=== PATIENT | male | born 1965 | race Caucasian/White ===

== ENCOUNTER → 2019-12-23 11:00 | Outpatient (BNVA) | payer SELFPAY | PROVIDERS: Family Provider Nurse Practitioner Family; PCP Nurse Practitioner Family; Visit Provider Nurse Practitioner Family | DX: R05 Cough (principal) | CPT/HCPCS: 87635 ==

== ENCOUNTER 2020-09-29 16:48 | Inpatient (IN) | payer SELFPAY ==
[2020-09-29] VITALS (36 sets, daily range): BP systolic 168–207; BP diastolic 96–117; PULSE 85–110; RESP 16–33; TEMP 36.5; O2SAT 98–100; BMI 37.7
--- NOTE | 2020-09-29 17:30 | XR_ITS ---
WS: [id number] Exam: XR chest 1V portable [id number] Date/Time of Exam: 09/29/2020 5:54 PM Reason For Exam: dyspnea. Looks CHF. Comparison 12/18/2018. The heart is enlarged. Pulmonary vascularity slightly increased. Small right pleural effusion. No con solidating infiltrates are seen. The lungs are fully expanded. The mediastinum and osseous thorax are unremarkable. XR/XR chest 1V portable [id number] IMPRESSION: 1. Cardiac enlargement with slightly increased pulmonary vascularity and small right pleural effusion.
--- NOTE | 2020-09-29 17:32 | ECG_ITS ---
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
--- NOTE | 2020-09-29 17:44 | PC.PHAR ---
PT STATES HE ONLY TAKES IBUPROFEN,MYLANTA,TUMS AND TYLENOL PRN-PT STATES HE WAS SUPPOSE TO BE TAKING OTHER MEDICATIONS BUT HASNT TAKEN THEM FOR A YEAR-MEDICATIONS HE HASNT TAKEN FOR A YEAR-AMBIEN 10MG,CLONIDINE 0.1MG,METOPROLOL 50MG,HCTZ 25MG,AMLODIPINE 10MG,PRILOSEC 40MG,TRAZODONE 50MG, DICLOFENAC 75MG, FLEXERIL 10MG, CARAFATE 10ML, METHOTREXATE
[2020-09-29 18:10] LABS: Basophils % 0.3 %; Eosinophils # 0.1 10^3/uL (0.0-0.8); Eosinophils % 0.7 %; Hematocrit 29.2 % (42.0-52.0); Hemoglobin 7.8 g/dL (11.7-16.6); Lymphocytes # 1.5 10^3/uL (0.8-4.8); Lymphocytes % 15.2 %; Mean Corpuscular HGB Conc 26.7 g/dL (30.0-36.0); Mean Corpuscular Hemoglobin 19.1 pg (28.0-34.0); Mean Corpuscular Volume 71.4 fL (80-94); Mean Platelet Volume 9.1 fL (7.4-10.4); Monocytes # 0.9 10^3/uL (0.2-0.9); Neutrophils # 7.13 10^3/uL (1.8-7.7); Neutrophils % 74.5 %; Nucleated Red Blood Cells % 0 %; Platelet Count 363 10^3/cmm (130-400); Red Blood Count 4.09 10^6/uL (4.1-5.3); Red Cell Distribution Width 19.9 % (12.1-15.1); White Blood Count 9.6 10^3/uL (4.0-10.0)
[2020-09-29] MEDS: FUROsemide 10 mg/mL SDV 4mL 40 MG IVP (18:12)
--- NOTE | 2020-09-29 18:23 | PC.NURSE ---
EKG done at 1749 and shown to ER doctor
--- NOTE | 2020-09-29 18:27 | PC.NURSE ---
Voided-700cc , pale yellow
[2020-09-29 18:38] LABS: Troponin(5th) Baseline 45 ng/L (0-15)
[2020-09-29 18:45] LABS: Alanine Aminotransferase 28 U/L (0-41); Albumin Level 3.2 g/dL (3.5-5.2); Alkaline Phosphatase 279 IU/L (40-130); Anion Gap 9.9 (5-19); Aspartate Amino Transferase 23 U/L (0-40); Blood Urea Nitrogen 26 mg/dL (6-20); Carbon Dioxide 25 mmol/L (22-29); Chloride 107 mmol/L (98-107); Globulin 3.2 g/dL (1.3-4.6); Glomerular Filtration Rate 63.3 mL/min (90-130); Glucose 81 mg/dL (65-115); NT Pro B Type Natriuretic Pept 6611 pg/mL (0-125); Osmolality Calculated 288 mOsm/kg (285-295); Potassium 4.9 mmol/L (3.5-5.1); Sodium 137 mmol/L (136-145); Total Bilirubin 0.4 mg/dL (0.15-1.2); Total Protein 6.4 g/dL (6.6-8.7)
--- NOTE | 2020-09-29 18:45 | PC.NURSE ---
Voided 300 ml
[2020-09-29 19:09] LABS: Add Urine Microscopic? NO
[2020-09-29 19:12] LABS: Bilirubin Urine Neg (Negative); Blood Urine Neg (Negative); Glucose Urine UA Norm (Normal); Ketones Urine Negative (Negative); Leukocyte Esterase Urine Negative (Negative); Nitrate Urine Negative (Negative); Protein Urine Neg (Negative); Sulfosalicylic Acid Urine Negative (Negative); Urine Appearance Clear (CLEAR); Urine Color Straw (Yellow); Urobilinogen Urine Norm (Negative); pH Urine 8 (5-7)
--- NOTE | 2020-09-29 19:18 | P.HP_ITS ---
Providers/Chief Complaint Primary Care Provider: Myrna Hernandez NP Chief Complaint: Abd pain/swelling History of Present Illness Ty Mejia is a 55 year old male who has history of esophageal cancer status post esophagectomy 2018 and esophageal stent placement for dysphagia 2019 presented today with chief complaint of 3-day history of shortness of breath and weight gain. Patient is stating that start experiencing orthopnea, PND, shortness of breath and weight gain in the last 1 week and recently in the last 3 days it has gotten worse. He is denying chest pain, fever, nausea, vomiting. No previous history of coronary disease, [place], stroke or PE however he is endorsing history of esophageal cancer. He still endorsing gastritis/gastric ulcers but has not noticed active bleeding. He is very upset and was not very cooperative during my evaluation however able to give me above HPI. He was upset because he has not eaten since 4 PM and he is not able to tolerate bread which we were offering in the ER. He is denying IV drug abuse, active smoking or alcohol abuse. Diagnostics in the ER revealed hypertension, CHF, BNP 6000, negative delta troponin, no active chest pain, EKG did not show ischemic or infarctive changes, I have requested drug screen Review of Systems 2 Const: Reports: body aches, change in weight, fatigue and malaise; Denies: fever(s) or chills Eyes: Denies: change in vision ENMT: Denies: throat pain Card: Reports: edema, swelling of feet/ankles, dyspnea on exertion and orthopnea; Denies: chest pain Resp: Reports: dyspnea GI: Denies: abdominal pain : Denies: flank pain Musc: Denies: neck pain Skin/Breast: Reports: lesions; Denies: rash Neuro: Denies: headache(s) Psych: Denies: anxiety Endo: Denies: polyuria Petar/Lymph: Denies: easy bruising All/Imm: Denies: urticaria Medications/Allergies Home Medications Medication Instructions Recorded Confirmed Last Taken Type Mylanta See Rx Instructions .ROUTE .COMPLEX 09/29/20 09/29/20 Unknown History Tums See Rx Instructions .ROUTE .COMPLEX 09/29/20 09/29/20 Unknown History acetaminophen [Tylenol Extra 1,000 - 1,500 mg PO PRN 09/29/20 09/29/20 Unknown History Strength] ibuprofen 400 - 800 mg PO PRN 09/29/20 09/29/20 Unknown History Allergies Allergy/AdvReac Type Severity Reaction Status Date / Time Penicillins Allergy Unknown Verified 09/29/20 17:41 PFSH Acute PFSH: Medical History Esophageal cancer GERD (gastroesophageal reflux disease) Hypertension Substance abuse Surgical History H/O esophagectomy History of orchiectomy Family History Father Hypertension Social History Smoking and tobacco status: former smoker Alcohol intake: never Substance/Drug Use: former Housing: House Vitals/I&O/Wt Last Vital Signs Temp 97.7 F 09/29/20 16:54 Pulse 91 09/29/20 18:05 Resp 25 H 09/29/20 18:05 BP 178/105 09/29/20 18:05 Pulse Ox 100 09/29/20 18:05 Weight last 48 hrs Weight 129.727 kg Physical Exam Narrative: EXAM NARRATIVE: Middle-age male very irritable because he is hungry and does not want to eat ham and cheese sandwich in the ER I offered him cheese stick, pudding & grape juice as well S1, S2 active signs of heart failure, bilateral lower extremity edema 2+ Venous stasis dermatitis No acute respiratory distress saturating well on room air Bilateral breath sounds without significant crackles wheezing or stridor Abdomen distended, bloated, nontender EOMI, PERRLA No neurological deficit Irritable mood Data : 09/29/20 18:00 09/29/20 18:00 A&P Assessment and plan (1) New onset of congestive heart failure: New onset CHF Clinical signs of fluid overload, with history of orthopnea PND shortness of breath and weight gain High BNP, no ischemic or infarctive changes currently chest pain-free I would request drug screen level He has hypertensive urgency in the ER does not take any medications, my suspicion is high for nonischemic cardiomyopathy, negative delta troponin noted Depending upon his ejection fraction further plan of care will be decided whether he would benefit from an angiogram or not For now I would use Lasix 40 mg IV, request echo check TSH and drug screen Status: Acute (2) Microcytic anemia: Acute microcytic anemia, will request iron panel Patient is denying active bleeding however endorses gastritis/gastric ulcers I would continue him on Protonix avoid DVT prophylaxis with anticoagulating agent would use SCDs If his hemoglobin drops below 7 will transfuse, monitor for now Status: Acute Additional A&P Information Esophageal cancer status post esophagectomy and esophageal stent: Tolerates regular diet other than bread and steak Cardiac diet/mechanical soft DVT prophylaxis: SCDs avoid anticoagulation due to anemia Full code Attestations Medical Necessity Statement*: Anticipating discharge in less than 48 hours currently need IV diuresis for new onset CHF and echo in the morning Time Spent in Patient Care: (>than 50% of time spent in counselling and/or direct pt care on unit) . 35mins Coding Level of Care Code Acute English Composition Instructor for Naima Saha Diagnoses New onset of congestive heart failure I50.9 Microcytic anemia D50.9
--- NOTE | 2020-09-29 19:27 | ED_ITS ---
HPI - SOB/Dyspnea General: Chief Complaint: General Medical Stated Complaint: Abd pain/swelling Time Seen by Provider: 09/29/20 17:06 History of Present Illness: HPI Narrative: The patient is a 55-year-old male who comes to the ER complaining of shortness of breath and swelling. He says he has recently over the past few weeks gained 50 pounds. The swelling started in his legs and worked up to his thighs and belly and now he says his arms are swelling as well. He has to sleep upright. Satting 99% on room air in no respiratory distress. No previous history of congestive heart failure. He has a list of medications he has not taken for 1 year which are mostly to control his blood pressure, and GERD. 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 He was transferred to [place] where he had surgery to have them reattached. This gives him chronic GERD and he takes [id number] medications for this. This problem is unrelated to his new onset CHF he appears to be having. Denies chest pain MD elicited complaint: shortness of breath Severity: moderate Exacerbating factors: lying flat Relieving factors: nothing Associated symptoms: Reports no associated symptoms; Deny abdominal pain, chest pain, dizziness, extremity pain, orthopnea, palpitations or polyuria Review of Systems General: Reports: 10 or more systems reviewed and unremarkable except in HPI and below Const: Denies: fatigue Eyes: Denies: change in vision, blurry vision or eye redness ENMT: Denies: throat pain, swelling of lips/tongue, ear or mastoid pain or nasal congestion Card: Reports: edema and swelling of feet/ankles; Denies: chest pain, palpitations, irregular heart rhythm, dyspnea on exertion or orthopnea Resp: Denies: dyspnea, productive cough or non-productive cough GI: Denies: abdominal pain, diarrhea or GI cramping : Denies: flank pain, urinary frequency or urinary urgency Musc: Denies: neck pain, back pain, extremity pain, joint pain, joint redness, limited range of motion or muscle weakness Skin/Breast: Denies: rash, pruritus, erythema, skin pain or skin tenderness Neuro: Denies: headache(s), numbness in extremities, weakness in extremities, sensory changes, difficulty walking, dizziness, confusion or Slurred speech present Psych: Denies: anxiety or depression Endo: Denies: polyuria All/Imm: Denies: urticaria, throat swelling or tongue swelling PFSH ED PFSH: Medical History (Updated 09/29/20 @ 19:30 by Jimmy Flanagan MD) Esophageal cancer GERD (gastroesophageal reflux disease) Hypertension Surgical History (Updated 09/29/20 @ 19:20 by Penelope Dobbs MD) H/O esophagectomy History of orchiectomy Family History (Updated 09/29/20 @ 19:31 by Penelope Dobbs MD) Father Hypertension Physical Exam Const: COMMON NORMALS: no acute distress, average body habitus, patient oriented x3, no limitations, healthy appearing, alert and well nourished GENERAL APPEARANCE: cooperative, comfortable, well kempt and well developed ORIENTATION/CONSCIOUSNESS: Yes awake, Yes oriented to person, Yes oriented to place and Yes oriented to time HENMT: COMMON NORMALS: normocephalic, external ears normal and Normal external nose present HEAD & SCALP: normal to inspection and normocephalic NOSE: Normal external nose present EXTERNAL EAR: Yes external ears normal MOUTH: Normal oral and palatal mucosa present THROAT: posterior oropharynx normal Eye: COMMON NORMALS: Equal, round and reactive pupils present and EOMs intact bilaterally GENERAL EYE: appearance normal, both eyes and all related structures PUPIL: Yes Equal, round and reactive pupils present Neck/C-Spine: COMMON NORMALS: full ROM, no lymphadenopathy, no meningeal signs and no JVD GENERAL: Yes normal visual inspection Lymph: LYMPHATIC: no lymphadenopathy noted Chest: COMMONS NORMALS: normal inspection of the chest and normal palpation of entire chest wall Resp: COMMON NORMALS: normal respiratory effort, No retractions, No use of accessory muscles, clear to auscultation bilaterally and percussion normal EFFORT & INSPECTION: Yes able to speak in complete sentences AUSCULTATION: clear to auscultation bilaterally PERCUSSION: percussion normal Cardio: COMMON NORMALS: no JVD, regular rate, regular rhythm, S1 normal heart sound present, S2 normal heart sound present and Peripheral pulses 2+ throughout RATE: regular rate RHYTHM: regular rhythm HEART SOUNDS: S1 normal heart sound present and S2 normal heart sound present PERIPHERAL PULSES: Peripheral pulses 2+ throughout GI: COMMON NORMALS: Soft to palpation, non-tender and no masses INSPECTION: Yes abdominal distension PALPATION: Yes Soft to palpation OTHER: He has abdominal distention and peripheral edema as well likely related to CHF. : COMMON NORMALS: Yes no CVA tenderness BLADDER/KIDNEY EXAM: Yes no CVA tenderness Back/Pelvis: COMMON NORMALS: no CVA tenderness, thoracic and lumbar spine normal to inspection, no thoracic nor lumbar tenderness and thoraco-lumbar ROM normal Extremity: COMMON NORMALS: full ROM, capillary refill normal and no joint enlargement GENERAL: Yes normal exam except as noted OTHER: He has 2-3+ pitting edema to his lower extremities. Abdominal distention. Neuro: COMMON NORMALS: patient oriented x3, CN's II-XII intact bilaterally, moves all extremities, no focal motor deficits, no sensory deficits noted and gait normal SENSORIUM/ORIENTATION: Yes alert, Yes oriented to person, Yes oriented to place and Yes oriented to time MENINGEAL SIGNS: Yes no meningeal signs Psych: COMMON NORMALS: mental status grossly normal, Normal thought process present, cooperative, normal affect and speech normal APPEARANCE: Yes well kempt ATTITUDE: Yes calm SPEECH: Yes normal speech THOUGHT PROCESS: Normal thought process present Skin: COMMON NORMALS: no rashes or lesions noted GENERAL SKIN EXAM: no kirk hes or lesions noted Course Vital Signs: Vital signs: Vital Signs Temperature 97.7 F 09/29/20 16:54 Pulse Rate 91 09/29/20 18:05 Respiratory Rate 25 H 09/29/20 18:05 Blood Pressure 178/105 09/29/20 18:05 Pulse Oximetry 100 09/29/20 18:05 MDM - SOB/Dyspnea MDM Narrative: Medical decision making narrative: The patient is a 55-year-old female with likely new onset CHF. He has gained 50 pounds in the past few weeks. He was given IV Lasix. Discussed with Dr. Dobbs who accepts for care to the cardiac stepdown unit. He also has a hemoglobin of 7.8. Most recently 2 years ago he had a normal hemoglobin however now it is low for an unknown reason. He denies any symptoms of bleeding. He brought with him a large list of medications which mostly show blood pressure and GERD control which he has not taken for 1 year. Lab Data: Labs: Lab Results 09/29/20 09/29/20 09/29/20 Range/Units 18:00 18:00 18:00 WBC 9.6 (4.0-10.0) 10^3/ uL RBC 4.09 L (4.1-5.3) 10^6/u L Hgb 7.8 L (11.7-16.6) g/dL Hct 29.2 L (42.0-52.0) % MCV 71.4 L (80-94) fL MCH 19.1 L (28.0-34.0) pg MCHC 26.7 L (30.0-36.0) g/dL RDW 19.9 H (12.1-15.1) % Plt Count 363 (130-400) 10^3/c mm MPV 9.1 (7.4-10.4) fL Neut % (Auto) 74.5 % Lymph % (Auto) 15.2 % [place] % (Auto) 9.0 % Eos % (Auto) 0.7 % Baso % (Auto) 0.3 % Neut # (Auto) 7.13 (1.8-7.7) 10^3/u L Lymph # (Auto) 1.5 (0.8-4.8) 10^3/u L [place] # (Auto) 0.9 (0.2-0.9) 10^3/u L Eos # (Auto) 0.1 (0.0-0.8) 10^3/u L Baso # (Auto) 0.0 (0.0-0.1) 10^3/u L Nucleated RBC % (a uto) 0 % Nucleated RBCs # 0.0 /100WBC Sodium 137 (136-145) mmol/L Potassium 4.9 (3.5-5.1) mmol/L Chloride 107 (98-107) mmol/L Carbon Dioxide 25 (22-29) mmol/L Anion Gap 9.9 (5-19) BUN 26 H (6-20) mg/dL Creatinine 1.2 (0.7-1.2) mg/dL GFR Calculation 63.3 L (90-130) mL/min Glucose 81 (65-115) mg/dL Calculated Osmolal ity 288 (285-295) mOsm/k g Calcium 8.0 L (8.5-10.5) mg/dL Total Bilirubin 0.4 (0.15-1.2) mg/dL AST 23 (0-40) U/L ALT 28 (0-41) U/L Alkaline Phosphata se 279 H (40-130) IU/L Troponin T Baselin e 45 H (0-15) ng/L NT-Pro-B Natriuret Pep 6611 H (0-125) pg/mL Total Protein 6.4 L (6.6-8.7) g/dL Albumin 3.2 L (3.5-5.2) g/dL Globulin 3.2 (1.3-4.6) g/dL Urine Color (Yellow) Urine Appearance (CLEAR) Urine pH (5-7) Ur Specific Gravit y (1.005-1.030) Urine Protein (Negative) Urine Glucose (UA) (Normal) Urine Ketones (Negative) Urine Blood (Negative) Urine Nitrate (Negative) Urine Bilirubin (Negative) Prot Sulfosalicyli c Acd (Negative) Urine Urobilinogen (Negative) mg/dL Ur Leukocyte Meg ase (Negative) 09/29/20 Range/Units 18:30 WBC (4.0-10.0) 10^3/ uL RBC (4.1-5.3) 10^6/u L Hgb (11.7-16.6) g/dL Hct (42.0-52.0) % MCV (80-94) fL MCH (28.0-34.0) pg MCHC (30.0-36.0) g/dL RDW (12.1-15.1) % Plt Count (130-400) 10^3/c mm MPV (7.4-10.4) fL Neut % (Auto) % Lymph % (Auto) % [place] % (Auto) % Eos % (Auto) % Baso % (Auto) % Neut # (Auto) (1.8-7.7) 10^3/u L Lymph # (Auto) (0.8-4.8) 10^3/u L [place] # (Auto) (0.2-0.9) 10^3/u L Eos # (Auto) (0.0-0.8) 10^3/u L Baso # (Auto) (0.0-0.1) 10^3/u L Nucleated RBC % (a uto) % Nucleated RBCs # /100WBC Sodium (136-145) mmol/L Potassium (3.5-5.1) mmol/L Chloride (98-107) mmol/L Carbon Dioxide (22-29) mmol/L Anion Gap (5-19) BUN (6-20) mg/dL Creatinine (0.7-1.2) mg/dL GFR Calculation (90-130) mL/min Glucose (65-115) mg/dL Calculated Osmolal ity (285-295) mOsm/k g Calcium (8.5-10.5) mg/dL Total Bilirubin (0.15-1.2) mg/dL AST (0-40) U/L ALT (0-41) U/L Alkaline Phosphata se (40-130) IU/L Troponin T Baselin e (0-15) ng/L NT-Pro-B Natriuret Pep (0-125) pg/mL Total Protein (6.6-8.7) g/dL Albumin (3.5-5.2) g/dL Globulin (1.3-4.6) g/dL Urine Color Straw (Yellow) Urine Appearance Clear (CLEAR) Urine pH 8 H (5-7) Ur Specific Gravit y 1.010 (1.005-1.030) Urine Protein Neg (Negative) Urine Glucose (UA) Norm (Normal) Urine Ketones Negative (Negative) Urine Blood Neg (Negative) Urine Nitrate Negative (Negative) Urine Bilirubin Neg (Negative) Prot Sulfosalicyli c Acd Negative (Negative) Urine Urobilinogen Norm (Negative) mg/dL Ur Leukocyte Meg ase Negative (Negative) Discharge Plan Discharge Patient Disposition: Admitted As Inpatient Clinical Impression: New onset of congestive heart failure, Microcytic anemia Condition: Stable Coding Level of Care Code ED [place] for Naima Saha
--- NOTE | 2020-09-29 19:32 | ECG_ITS ---
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: : 1965 Requested By: Jimmy Flanagan Order Number: [id number] Maria T MD: YURI VIEIRA Measurements Intervals [place] Rate: 92 P: 49 LA: 162 QRS: 21 QRSD: 93 T: 91 QT: 358 QTc: 443 Interpretive Statements SINUS RHYTHM POSSIBLE LEFT ATRIAL ENLARGEMENT [-0.1mV P WAVE IN V1/V2] NONSPECIFIC T-WAVE ABNORMALITY Compared to ECG 09/29/2020 17:49:58 T-wave abnormality now present Electronically Signed On 09-29-2020 20:08:15 DIRECTOR MEDICAL ECONOMICS by YURI VIEIRA [id number]
--- NOTE | 2020-09-29 19:40 | PC.NURSE ---
EKG done at 1940 and shown to ER doctor
[2020-09-29 20:41] LABS: Troponin 5 2HR 44.67 ng/L (0-15)
[2020-09-29 20:45] LABS: Troponin 5 2HR Delta -0.33 ABS# (0-10)
--- NOTE | 2020-09-29 21:50 | PC.NURSE ---
Patient transported to room 111 bed 2 via wheelchair from the ED. Pt assisted in bed and all questions answered. Pt's only complaints at this time are about his acid reflux. Pt placed on career consultant as well as NIBP and SPO2 monitor.
[2020-09-29 22:48] LABS: Chol HDL Ratio 2.79 mg/dL (1.0-5.00); Cholesterol 106 mg/dL (0-200); HDL Cholesterol 38 mg/dL (60-100); LDL Cholesterol Calculated 58 mg/dL (50-129); LDL HDL Ratio 1.53 RATIO (0.00-3.22); Triglycerides 48 mg/dL (0-150)
[2020-09-29] MEDS: lidocaine 2% viscous 15 ML, aluminum-mag hydrox-simethicon 30 ML, sucralfate oral liq 1 GM PO (23:02)
[2020-09-29] MEDS: labetalol 5 mg/mL SDV 20mL 10 MG IVP (23:06)
[2020-09-29 23:27] LABS: Ferritin 10 ng/mL (30-400); Iron 20 ug/dL (59-158); Percent Saturation 5.4 % (20-50); Total Iron Binding Capacity 366 mcg/dl; Unsaturated Iron Binding 346 ug/dL (112-347)
--- NOTE | 2020-09-29 23:32 | ECG_ITS ---
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 Measurements Intervals [place] Rate: 85 P: 62 ND: 166 QRS: 40 QRSD: 97 T: 125 QT: 375 QTc: 447 Interpretive Statements SINUS RHYTHM NONSPECIFIC T-WAVE ABNORMALITY Compared to ECG 09/29/2020 19:36:19 No significant changes [email or web address]'); Electronically Signed On 09-30-2020 20:10:14 CORNER BLOCK CUTTER by Guerline Worley M.D. [id number]
[2020-09-29 23:39] LABS: Troponin 5 6HR 43.59 ng/L (0-15)
[2020-09-29 23:42] LABS: Troponin 5 6HR Delta -1.41 ng/L (0-12)
[2020-09-29 23:43] LABS: Amphetamines Screen Urine Negative (Negative); Barbiturates Screen Urine Negative (Negative); Benzodiazepines Screen Urine Negative (Negative); Cocaine Screen Urine Negative (Negative); Opiate Screen Urine Negative (Negative); PCP Screen Urine Negative (Negative); THC Screen Urine Negative (Negative)
[2020-09-30] VITALS (69 sets, daily range): BP systolic 150–190; BP diastolic 76–116; PULSE 75–100; RESP 17–35; TEMP 36.5–37; O2SAT 91–100
[2020-09-30 05:12] LABS: Basophils % 0.5 %; Eosinophils # 0.1 10^3/uL (0.0-0.8); Eosinophils % 1.3 %; Hematocrit 26.6 % (42.0-52.0); Hemoglobin 7.2 g/dL (11.7-16.6); Lymphocytes # 1.6 10^3/uL (0.8-4.8); Lymphocytes % 18.7 %; Mean Corpuscular HGB Conc 27.1 g/dL (30.0-36.0); Mean Corpuscular Hemoglobin 19.1 pg (28.0-34.0); Mean Corpuscular Volume 70.6 fL (80-94); Mean Platelet Volume 9.2 fL (7.4-10.4); Monocytes # 0.9 10^3/uL (0.2-0.9); Monocytes % 10.6 %; Neutrophils # 5.89 10^3/uL (1.8-7.7); Neutrophils % 68.7 %; Nucleated Red Blood Cells % 0 %; Platelet Count 355 10^3/cmm (130-400); Red Blood Count 3.77 10^6/uL (4.1-5.3); Red Cell Distribution Width 19.7 % (12.1-15.1); White Blood Count 8.6 10^3/uL (4.0-10.0)
[2020-09-30 05:33] LABS: Thyroid Stimulating Hormone 3.45 uIU/mL (0.27-4.20)
--- NOTE | 2020-09-30 06:00 | USCV_ITS ---
Ty Mejia Age: 55 Gender: M : 1965 Exam Date: 09/30/2020 06:48 Ordering Phys: Penelope Dobbs MD Technologist: Michael Villatoro [place] [facility] [place]: CHEST PAIN BP: 190 / 116 HR: 86 Rhythm: Sinus Technical Quality: Fair MEASUREMENTS (Male / Female) Normal Values 2D ECHO LV Diastolic Diameter PLAX 4.6 cm 4.2 - 5.9 / 3.9 - 5.3 cm LV Systolic Diameter PLAX 2.8 cm IVS Diastolic Thickness 1.5 cm 0.6 - 1.0 / 0.6 - 0.9 cm IVS Systolic Thickness 1.8 cm LVPW Diastolic Thickness 1.3 cm 0.6 - 1.0 / 0.6 - 0.9 cm LVPW Systolic Thickness 2.1 cm LVOT Diameter 2.5 cm LV Ejection Fraction 2D Teich 70.8 % LV Ejection Fraction MOD 2C 44.8 % LV Ejection Fraction 2C AL 46.4 % LA Diameter 5.4 cm LA Width 6.3 cm LA Height 6.4 cm RA Width 5.3 cm RA Height 6.3 cm Aorta at Sinotubular Diameter 2.8 cm M-MODE LV Diastolic Diameter MM 5.0 cm 4.2 - 5.9 / 3.9 - 5.3 cm LV Systolic Diameter MM 3.8 cm LV Ejection Fraction MM Teich 46.6 % IVS Diastolic Thickness MM 1.1 cm 0.6 - 1.0 / 0.6 - 0.9 cm IVS Systolic Thickness MM 1.5 cm LVPW Diastolic Thickness MM 1.3 cm 0.6 - 1.0 / 0.6 - 0.9 cm LVPW Systolic Thickness MM 1.5 cm RV Diastolic Diameter MM 3.2 cm Aortic Annulus Diameter 3.7 cm LA Ao Ratio MM 1.5 MV E Point Septal Separation 1.0 cm DOPPLER AV Peak Velocity 165.0 cm/s LVOT Peak Velocity 121.0 cm/s AV Area Cont Eq vti 4.2 cm squared AV Area Cont Eq pk 3.5 cm squared MV Area PHT 5.0 cm squared Mitral E to A Ratio 1.6 MV E' Velocity 73.0 cm/s Mitral E to MV E' Ratio 16.3 Mitral E to LV E' Lateral Ratio 11.7 Mitral E to LV E' Septal Ratio 27.0 TR Peak Velocity 300.3 cm/s TR Peak Gradient 36.1 mmHg TV Peak E Velocity 123.0 cm/s Right Atrial Pressure 3.0 mmHg Pulmonary Artery Systolic Pressu 39.1 mmHg PV Peak Velocity 111.0 cm/s FINDINGS Left Ventricle Normal left ventricular cavity size. Increased left ventricular wall thickness. Moderate concentric left ventricular hypertrophy. Normal left ventricular systolic function. Left ventricular ejection fraction is estimated at 55 %. There is possible septal hypokinesis. Normal diastolic function. Abnormal septal motion consistent with conduction abnormality. Right Ventricle Upper normal right ventricular size and moderately decreased right ventricular systolic function. Right ventricular systolic pressure 52 mmHg. Right Atrium Mildly increased right atrial size. Left Atrium Mildly increased left atrial size. Mitral Valve Structurally normal mitral valve. No mitral valve stenosis. Mild mitral valve regurgitation. Aortic Valve Structurally normal trileaflet aortic valve. No aortic valve stenosis. Trace aortic valve regurgitation. Tricuspid Valve Structurally normal tricuspid valve. Mild tricuspid valve regurgitation. Pulmonic Valve Structurally normal pulmonic valve. No pulmonary valve stenosis. Trace pulmonary valve regurgitation. Pericardium No pericardial effusion. Aorta Normal size aortic root and proximal ascending aorta. CONCLUSIONS 1. Normal left ventricular cavity size. Moderate concentric left ventricular hypertrophy. Normal left ventricular systolic function. Left ventricular ejection fraction is estimated at 55 %. There is possible septal hypokinesis. Normal diastolic function. 2. Upper normal right ventricular size and moderately decreased right ventricular systolic function. 3. Moderate pulmonary hypertension with pulmonary artery pressure estimated 52 mmHg. 4. Mild biatrial enlargement. 5. Mild mitral and tricuspid valve regurgitation. 6. No prior similar studies to compare. Mariela Martines MD (Electronically Signed) Final Date: 30 September 2020 12:13 S
[2020-09-30 06:49] LABS: Estmated Average Glucose 114; Hemoglobin A1C 5.6 % (4.0-6.0)
[2020-09-30] MEDS: FUROsemide 40 mg Tablet PO (08:44)
[2020-09-30] MEDS: losartan 50 mg Tablet PO (08:44)
[2020-09-30] MEDS: pantoprazole DR 40 mg Tablet PO (08:46)
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
--- NOTE | 2020-09-30 14:17 | P.PN_ITS ---
Subjective Subjective: Interval history: Patient is fairly rude to physician and staff. I had RN join me during exam. His mother is also at the bedside. They live together. She is a smoker. He reports no chest pain or pressure. He states his breathing is improved. His major complaint is not knowing what is going on . And his other main complaint is that of his leg swelling. He states that has been going on for months. Medications: Reviewed: Yes Vitals/I&O/Wt Last Vital Signs Temp 98.0 F 09/30/20 11:40 Pulse 88 09/30/20 11:40 Resp 19 H 09/30/20 11:40 BP 161/87 09/30/20 11:40 Pulse Ox 98 09/30/20 11:40 09/29/20 09/30/20 09/30/20 22:59 06:59 14:59 Intake Total 300 / 300 600 / 600 Output Total 900 / 900 360 / 360 Balance -600 / -600 240 / 240 Weight last 48 hrs Weight 129.727 kg Physical Exam Narrative: EXAM NARRATIVE: General: Appears older than his stated age. He appears to be a smoker but he denies. No acute distress. He is alert and oriented. Neck: No JVD Heart: Regular rate and rhythm no murmur auscultated. Lungs: Lungs diminished throughout worse at bases. No wheezes rales or rhonchi Abdomen patient has erythematous edema into his abdomen. It is firm but not tender to touch. Bowel sounds are normal unable to palpate organs. Extremities patient has 3+ pitting edema to his groin. patient has scrotal edema as well. Data : 09/30/20 04:52 09/29/20 18:00 Other Labs: ECHO results reviewed: CONCLUSIONS 1. Normal left ventricular cavity size. Moderate concentric left ventricular hypertrophy. Normal left ventricular systolic function. Left ventricular ejection fraction is estimated at 55 %. There is possible septal hypokinesis. Normal diastolic function. 2. Upper normal right ventricular size and moderately decreased right ventricular systolic function. 3. Moderate pulmonary hypertension with pulmonary artery pressure estimated 52 mmHg. 4. Mild biatrial enlargement. 5. Mild mitral and tricuspid valve regurgitation. 6. No prior similar studies to compare. A&P Assessment and plan (1) New onset of congestive heart failure: Pt with severe fluid overload from acute right ventricular heart failure due to pulm HTN. He is so edematous an oral diuretic will be ineffective. Switch to IV lasix for goal of 2-3 L negative daily. Status: Acute (2) Right heart failure due to pulmonary hypertension: Will need pulm consult as outpt. would recommend stablization prior to visit. Status: Acute (3) Iron deficiency anemia: Concern for history of esophageal cancer. Will give iron and referral back to [facility] for panendoscopy. Again would recommend stablization prior to work up. Status: Acute (4) Concentric left ventricular hypertrophy: control BP. Pt on losartan and lasix. Status: Acute Attestations Medical Necessity Statement*: Pt with severe right sided heart failure requiring IV diuretics and close monitorin of electrolytes as we agressively diuresis pt. Coding Level of Care Code Acute Train Planner for Naima Saha Diagnoses New onset of congestive heart failure I50.9 Right heart failure due to pulmonary hypertension I27.29; I50.810 Iron deficiency anemia D50.9 Concentric left ventricular hypertrophy I51.7
[2020-09-30 14:25] LABS: Anion Gap 10.3 (5-19); Blood Urea Nitrogen 24 mg/dL (6-20); Carbon Dioxide 25 mmol/L (22-29); Chloride 105 mmol/L (98-107); Glomerular Filtration Rate 57.7 mL/min (90-130); Glucose 98 mg/dL (65-115); Osmolality Calculated 286 mOsm/kg (285-295); Potassium 4.3 mmol/L (3.5-5.1); Sodium 136 mmol/L (136-145)
[2020-09-30] MEDS: aspirin 81 mg EC Tablet PO (15:02)
[2020-09-30] MEDS: FUROsemide 10 mg/mL SDV 4mL 40 MG IVP (18:18)
[2020-09-30] MEDS: lidocaine 2% viscous 15 ML, aluminum-mag hydrox-simethicon 30 ML, sucralfate oral liq 1 GM PO (22:10)
[2020-09-30] MEDS: trazodone 50 mg Tablet PO (23:12)
[2020-10-01] VITALS (9 sets, daily range): BP systolic 147–175; BP diastolic 81–93; PULSE 83–105; RESP 15–24; TEMP 36.6–38.1; O2SAT 96–100
[2020-10-01 05:36] LABS: Anion Gap 11.2 (5-19); Blood Urea Nitrogen 23 mg/dL (6-20); Calcium 7.4 mg/dL (8.5-10.5); Carbon Dioxide 25 mmol/L (22-29); Chloride 104 mmol/L (98-107); Glomerular Filtration Rate 63.3 mL/min (90-130); Glucose 97 mg/dL (65-115); Osmolality Calculated 286 mOsm/kg (285-295); Potassium 4.2 mmol/L (3.5-5.1); Sodium 136 mmol/L (136-145)
--- NOTE | 2020-10-01 08:43 | PC.NURSE ---
Patient stated his family has been bringing him in [employer] to eat while he has been here, and his nurse is aware he has been eating it. Educated patient that this song writer would discuss his diet with his nurse when she was available, to see if he could eat a ham sandwich as he is requesting.
[2020-10-01] MEDS: losartan 50 mg Tablet PO (09:14)
[2020-10-01] MEDS: FUROsemide 10 mg/mL SDV 4mL 40 MG IVP ×2 (09:15→18:39)
[2020-10-01] MEDS: aspirin 81 mg EC Tablet PO (09:15)
--- NOTE | 2020-10-01 10:07 | PC.CHAP ---
Pastoral Care Encounter/Spiritual Assessment Type of Contact [] Declined light rail vehicle operator visit [] Patient/Family/Request visit [] Outpatient visit [] Follow-up visit [] Physician referral [] Code/Alert [x] Routine visit [] Staff referral [] Actively dying [] Patient sleeping [] Family support [] [] Out of room [] Palliative care [] [] Receiving care in room [] Pre-surgical visit [] Trauma [] Long length of stay [] ICU visit [] Other: Relational/Emotional Strength [] Patient feels connected with others/family/visitors/staff [] Distress [] Loneliness/isolation [] Abandonment Spirituality of Patient [x] Person of Heather [] Attends Roman Catholic of their Heather [] Believes in Prayer [] Reads Bible or Scientologist materials [] There are Spiritual issues to be addressed Carpet Installer Helper Interventions [x] Prayer [x] Active listening [x] Non-anxious presence [x] Spiritual/emotional support [] Crisis/trauma care [] Spiritual counseling [] Bereavement support [] Provided bereavement packet [] Provided Bible/devotional materials [] Provided toy/stuffed animal, coloring book to patient or family member [] Provided Communion [] Anointing/Fonda [] Salvation [x] Completed spiritual assessment [] Other: Impact on Illness or Injury [] Angry [] Fearful [] Anxious [] Often cries [] Exhaustion [] Unable to work [] Unable to attend baptism [] Unable to walk/stand [] Unable to read [] Unable to drive [] Unable to eat/drink [] Unable to sleep [] Unable to be with family [] Patient intubated [] Other: Summary patient waiting for doctors visit... needs to change feeding instructions.. patient hungry Time spent with patient 10 min
--- NOTE | 2020-10-01 14:16 | P.PN_ITS ---
Subjective Subjective: Interval history: 55-year-old male with a past medical history significant for esophageal cancer status post esophagectomy with prior stent placement in 2019 presented to the emergency room with increased bilateral lower extremity edema and respiratory distress. Patient stated he was not on any medications at home. Has had cardiac workup done in [place] which per jessica nogueira was negative. Laboratory workup on arrival showed a WBC of 9.6, hemoglobin of 7.8, hematocrit of 29.2 and a platelet count of 363. Sodium 137, potassium 4.9, chloride 107, bicarb 25, BUN 26 and creatinine of 1.2. Echocardiogram performed showed normal ejection fraction of 55% with possible septal hypokinesis and upper limits of normal right ventricular size and moderately decreased right ventricular systolic function. Moderate pulmonary hypertension with pulmonary arterial pressure estimated at 52 mm Hg. Patient was started on Lasix 40 mg IV b.i.d.. In addition was also started on aspirin 81 mg daily and due to hypertension was also started on losartan 50 mg oral daily. Patient continued to have significant output. Total since admission patient was negative 7.9 L. Subjective: Patient was upset about being on a GI soft diet, stated he would like to change to regular, no prior aspiration. no complaint of chest pain, dyspnea, noted improvement in bilateral lower extremity edema however L>R. Vitals/I&O/Wt Last Vital Signs Temp 98.3 F 10/01/20 11:45 Pulse 87 10/01/20 12:18 Resp 24 H 10/01/20 12:18 BP 159/89 10/01/20 12:18 Pulse Ox 97 10/01/20 12:18 09/30/20 10/01/20 10/01/20 22:59 06:59 14:59 Intake Total 360 / 960 240 / 240 Output Total 4300 / 4660 550 / 5210 3300 / 3300 Balance -3940 / -3700 -550 / -4250 -3060 / -3060 Weight last 48 hrs Weight 129.727 kg Physical Exam Const: COMMON NORMALS: no acute distress, average body habitus, patient oriented x3, no limitations, healthy appearing, alert and well nourished GE NERAL APPEARANCE: cooperative, comfortable, well kempt and well developed ORIENTATION/CONSCIOUSNESS: Yes awake, Yes oriented to person, Yes oriented to place and Yes oriented to time HENMT: COMMON NORMALS: normocephalic, external ears normal and Normal external nose present HEAD & SCALP: normal to inspection and normocephalic NOSE: Normal external nose present EXTERNAL EAR: Yes external ears normal MOUTH: Normal oral and palatal mucosa present THROAT: posterior oropharynx normal Eye: COMMON NORMALS: Equal, round and reactive pupils present and EOMs intact bilaterally GENERAL EYE: appearance normal, both eyes and all related structures PUPIL: Yes Equal, round and reactive pupils present Neck/C-Spine: COMMON NORMALS: full ROM, no lymphadenopathy, no meningeal signs and no JVD GENERAL: Yes normal visual inspection Lymph: LYMPHATIC: no lymphadenopathy noted Chest: COMMONS NORMALS: normal inspection of the chest and normal palpation of entire chest wall Resp: COMMON NORMALS: normal respiratory effort, No retractions, No use of accessory muscles, clear to auscultation bilaterally and percussion normal EFFORT & INSPECTION: Yes able to speak in complete sentences AUSCULTATION: clear to auscultation bilaterally PERCUSSION: percussion normal Cardio: COMMON NORMALS: no JVD, regular rate, regular rhythm, S1 normal heart sound present, S2 normal heart sound present and Peripheral pulses 2+ throughout RATE: regular rate RHYTHM: regular rhythm HEART SOUNDS: S1 normal heart sound present and S2 normal heart sound present PERIPHERAL PULSES: Peripheral pulses 2+ throughout GI: COMMON NORMALS: Soft to palpation, non-tender and no masses INSPECTION: Yes abdominal distension PALPATION: Yes Soft to palpation OTHER: He has abdominal distention and peripheral edema as well likely related to CHF. : COMMON NORMALS: Yes no CVA tenderness BLADDER/KIDNEY EXAM: Yes no CVA tenderness Back/Pelvis: COMMON NORMALS: no CVA tenderness, thoracic and lumbar spine normal to inspection, no thoracic nor lumbar tenderness and thoraco-lumbar ROM normal Extremity: COMMON NORMALS: full ROM, capillary refill normal and no joint enlargement GENERAL: Yes normal exam except as noted OTHER: He has 2-3+ pitting edema to his lower extremities. Left > Right mild tenderness to palpation Neuro: COMMON NORMALS: patient oriented x3, CN's II-XII intact bilaterally, moves all extremities, no focal motor deficits, no sensory deficits noted and gait normal SENSORIUM/ORIENTATION: Yes alert, Yes oriented to person, Yes oriented to place and Yes oriented to time MENINGEAL SIGNS: Yes no meningeal signs Psych: COMMON NORMALS: mental status grossly normal, Normal thought process present, cooperative, normal affect and speech normal APPEARANCE: Yes well kempt ATTITUDE: Yes calm SPEECH: Yes normal speech THOUGHT PROCESS: Normal thought process present Skin: COMMON NORMALS: no rashes or lesions noted GENERAL SKIN EXAM: no rashes or lesions noted Urinary Catheter Management^: Matias: Cath Placed During This Visit: yes Reason for Continuing Indwelling Catheter: Accurate Measurement of Urinary Output in Critically Ill Patients Urinary Catheter Date of Insertion: 09/30/20 Urinary Catheter Time of Insertion: 16:00 Data : 09/30/20 04:52 10/01/20 04:31 A&P Assessment and plan (1) Microcytic anemia: Status: Acute (2) New onset of congestive heart failure: Status: Acute (3) Right heart failure due to pulmonary hypertension: Status: Acute (4) Concentric left ventricular hypertrophy: Status: Acute (5) Iron deficiency anemia: Status: Acute Acute right heart failure exacerbation - Continue Lasix 40 mg IV BID - ECHO - pEF with decrease RV systolic function - Daily weight - Strict I&O - Will transition to PO tomorrow . - Arrange outpatient follow up with PCP - May consider outpatient stress test. Hypertension - Losartan 50 mg PO daily - Continue to monitor Iron deficiency anemia - Hb 7.2 - monitor h/h - Will start oral replacement - Check stool for occult blood - continue asa - hold heparin DVT pox - SCDS - No heparin due to anemia Attestations Medical Necessity Statement*: Patient require further hospitalization for right heart failure exacerbation requiring IV Lasix, and anemia workup Time Spent in Patient Care: Greater than 35 minutes (>than 50% of time spent in counselling and/or direct pt care on unit) . 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
--- NOTE | 2020-10-01 14:26 | USCV_ITS ---
MejiaTy Age: 55 Gender: M : 1965 Exam Date: 10/01/2020 16:41 Ordering Phys: Ailyn Rouse MD Technologist: Melba Torres [place]am [place] [facility] [place] Indication: EDEMA HISTORY: Lower extremity edema. PROCEDURES: Venous duplex imaging was performed in bilateral lower extremities. The following venous structures were evaluated: common femoral vein, profunda vein, proximal portion of the greater saphenous vein, superficial femoral vein, and the popliteal vein. In addition, the posterior tibial and peroneal trunk were evaluated. Serial compression, augmentation maneuvers, and spectral Doppler flow evaluation were performed. FINDINGS: Normal 2-D Doppler and augmentation and compressibility throughout the lower extremity venous structures. Additional imaging through the proximal calf veins also reveals no thrombus. Limited evaluation of the greater saphenous vein is patent with no thrombus.. CONCLUSIONS No evidence of right lower extremity DVT. No evidence of left lower extremity DVT. Cory Mayes MD (Electronically Signed) Final Date: 01 October 2020 17:28 S
--- NOTE | 2020-10-01 16:56 | PC.NURSE ---
Dr. Salmeron notified of patient's elevated temp of 100.6.
[2020-10-01] MEDS: trazodone 50 mg Tablet PO (23:13)
[2020-10-02] VITALS (7 sets, daily range): BP systolic 152–167; BP diastolic 85–90; PULSE 86–102; RESP 20–23; TEMP 36.3–37.1; O2SAT 94–96
[2020-10-02] MEDS: lidocaine 2% viscous 15 ML, aluminum-mag hydrox-simethicon 30 ML, sucralfate oral liq 1 GM PO (01:24)
[2020-10-02 07:14] LABS: Alanine Aminotransferase 28 U/L (0-41); Albumin Level 2.7 g/dL (3.5-5.2); Alkaline Phosphatase 225 IU/L (40-130); Anion Gap 11.1 (5-19); Aspartate Amino Transferase 22 U/L (0-40); Blood Urea Nitrogen 20 mg/dL (6-20); Calcium 7.6 mg/dL (8.5-10.5); Carbon Dioxide 26 mmol/L (22-29); Chloride 105 mmol/L (98-107); Globulin 3.2 g/dL (1.3-4.6); Glomerular Filtration Rate 63.3 mL/min (90-130); Glucose 91 mg/dL (65-115); Magnesium 1.9 mg/dL (1.7-2.3); Osmolality Calculated 288 mOsm/kg (285-295); Potassium 4.1 mmol/L (3.5-5.1); Sodium 138 mmol/L (136-145); Total Bilirubin 0.3 mg/dL (0.15-1.2); Total Protein 5.9 g/dL (6.6-8.7)
[2020-10-02 07:39] LABS: Basophils % 0.2 %; Eosinophils # 0.2 10^3/uL (0.0-0.8); Hematocrit 26.9 % (42.0-52.0); Hemoglobin 7.2 g/dL (11.7-16.6); Lymphocytes # 1.5 10^3/uL (0.8-4.8); Lymphocytes % 18.3 %; Mean Corpuscular HGB Conc 26.8 g/dL (30.0-36.0); Mean Corpuscular Hemoglobin 18.9 pg (28.0-34.0); Mean Corpuscular Volume 70.8 fL (80-94); Mean Platelet Volume 9.7 fL (7.4-10.4); Monocytes # 0.9 10^3/uL (0.2-0.9); Monocytes % 11.5 %; Neutrophils # 5.51 10^3/uL (1.8-7.7); Neutrophils % 67.5 %; Nucleated Red Blood Cells % 0 %; Platelet Count 392 10^3/cmm (130-400); White Blood Count 8.2 10^3/uL (4.0-10.0)
[2020-10-02] MEDS: losartan 50 mg Tablet PO (09:36)
[2020-10-02] MEDS: aspirin 81 mg EC Tablet PO (09:36)
--- NOTE | 2020-10-02 10:10 | PC.NURSE ---
Pts irizarry pulled at 1015. Pt tollerated well. Will cont to monitor.
--- NOTE | 2020-10-02 10:53 | P.DS_ITS ---
Discharge Providers Date of Admission: 09/30/20 14:49 Date of Discharge: October 02, 2020 Attending Provider at Admission: Penelope Dobbs MD Attending Provider at Discharge: Ailyn Rouse Primary Care Provider: Myrna Hernandez NP Diagnoses at Discharge Discharge Diagnosis (1) Microcytic anemia: Status: Acute (2) New onset of congestive heart failure: Status: Acute (3) Right heart failure due to pulmonary hypertension: Status: Acute (4) Concentric left ventricular hypertrophy: Status: Acute (5) Iron deficiency anemia: Status: Acute Reason for Visit Reason for Visit: Abd pain/swelling Hospital Course Hospital Course 55-year-old male with a past medical history significant for esophageal cancer status post esophagectomy with prior stent placement in 2019 presented to the emergency room with increased bilateral lower extremity edema and respiratory distress. Patient stated he was not on any medications at home. Has had cardiac workup done in [place] which per patient was negative. Laboratory workup on arrival showed a WBC of 9.6, hemoglobin of 7.8, hematocrit of 29.2 and a platelet count of 363. Sodium 137, potassium 4.9, chloride 107, bicarb 25, BUN 26 and creatinine of 1.2. Echocardiogram performed showed normal ejection fraction of 55% with possible septal hypokinesis and upper limits of normal right ventricular size and moderately decreased right ventricular systolic function. Moderate pulmonary hypertension with pulmonary arterial pressure estimated at 52 mm Hg. Patient was started on Lasix 40 mg IV b.i.d.. In addition was also started on aspirin 81 mg daily and due to hypertension was also started on losartan 50 mg oral daily. Patient continued to have significant output. Total since admission patient was negative 12.9L balance. He was stable for discharge. Had requested lower dose of diuretic due to his work schedule. It advised to monitor his daily weight in symptoms. Additional only prior to discharge patient was noted have a temperature of a 100.6. This was incidental isolated time. Patient did not have any obvious signs of infection. Clinically was stable. Advised to monitor at home and return to hospital continue to recur. Patients respiratory status had returned to baseline. Did not have any chest discomfort. No nausea or vomiting. Advised to follow-up with primary care physician and Cardiology post discharge. Repeat outpatient labs were ordered. Oral dietary potassium supplementation Physical Exam Const: COMMON NORMALS: no acute distress, average body habitus, patient oriented x3, no limitations, healthy appearing, alert and well nourished GENERAL APPEARANCE: cooperative, comfortable, well kempt and well developed ORIENTATION/CONSCIOUSNESS: Yes awake, Yes oriented to person, Yes oriented to place and Yes oriented to time HENMT: COMMON NORMALS: normocephalic, external ears normal and Normal external nose present HEAD & SCALP: normal to inspection and normocephalic NOSE: Normal external nose present EXTERNAL EAR: Yes external ears normal MOUTH: Normal oral and palatal mucosa present THROAT: posterior oropharynx normal Eye: COMMON NORMALS: Equal, round and reactive pupils present and EOMs intact bilaterally GENERAL EYE: appearance normal, both eyes and all related structures PUPIL: Yes Equal, round and reactive pupils present Neck/C-Spine: COMMON NORMALS: full ROM, no lymphadenopathy, no meningeal signs and no JVD GENERAL: Yes normal visual inspection Lymph: LYMPHATIC: no lymphadenopathy noted Chest: COMMONS NORMALS: normal inspection of the chest and normal palpation of entire chest wall Resp: COMMON NORMALS: normal respiratory effort, No retractions, No use of accessory muscles, clear to auscultation bilaterally and percussion normal EFFORT & INSPECTION: Yes able to speak in complete sentences AUSCULTATION: clear to auscultation bilaterally PERCUSSION: percussion normal Cardio: COMMON NORMALS: no JVD, regular rate, regular rhythm, S1 normal heart sound present, S2 normal heart sound present and Peripheral pulses 2+ throughout RATE: regular rate RHYTHM: regular rhythm HEART SOUNDS: S1 normal heart sound present and S2 normal heart sound present PERIPHERAL PULSES: Peripheral pulses 2+ throughout GI: COMMON NORMALS: Soft to palpation, non-tender and no masses INSPECTION: Yes abdominal distension PALPATION: Yes Soft to palpation OTHER: He has abdominal distention and peripheral edema as well likely related to CHF. : COMMON NORMALS: Yes no CVA tenderness BLADDER/KIDNEY EXAM: Yes no CVA tenderness Back/Pelvis: COMMON NORMALS: no CVA tenderness, thoracic and lumbar spine normal to inspection, no thoracic nor lumbar tenderness and thoraco-lumbar ROM normal Extremity: COMMON NORMALS: full ROM, capillary refill normal and no joint enlargement GENERAL: Yes normal exam except as noted OTHER: He has 2-3+ pitting edema to his lower extremities. Left > Right mild tenderness to palpation Neuro: COMMON NORMALS: patient oriented x3, CN's II-XII intact bilaterally, moves all extremities, no focal motor deficits, no sensory deficits noted and gait normal SENSORIUM/ORIENTATION: Yes alert, Yes oriented to person, Yes oriented to place and Yes oriented to time MENINGEAL SIGNS: Yes no meningeal signs Psych: COMMON NORMALS: mental status grossly normal, Normal thought process present, cooperative, normal affect and speech normal APPEARANCE: Yes well kempt ATTITUDE: Yes calm SPEECH: Yes normal speech THOUGHT PROCESS: Normal thought process present Skin: COMMON NORMALS: no rashes or lesions noted GENERAL SKIN EXAM: no rashes or lesions noted Urinary Catheter Management^: Matias: Cath Placed During This Visit: yes, but has since been removed by the nurse Reason for Continuing Indwelling Catheter: Accurate Measurement of Urinary Output in Critically Ill Patients Urinary Catheter Date of Insertion: 09/30/20 Urinary Catheter Time of Insertion: 16:00 Date Urinary Catheter Removed: 10/02/20 Time Urinary Catheter Discontinued: 10:16 Discharge Data Data Completed and Pending: Completed Studies During Hospitalization Category Date Time Status XR chest 1V faisal ble [id number] Urgent Exams 09/29/20 17:30 Completed CV echo complete* [id number] Routine Ultrasound 09/30/20 06:00 [place] [id number] Routin e Ultrasound 10/01/20 14:26 Completed Pending at discharge Category Date Time Status Basic Metabolic P irasema AM LABS Lab 10/03/20 04:00 Ordered Immunochemical Fe tram OCB Routine Lab 10/01/20 14:34 Uncollected Labs from last 24 hours 10/02/20 10/02/20 05:00 05:00 WBC 8.2 RBC 3.80 L Hgb 7.2 L Hct 26.9 L MCV 70.8 L MCH 18.9 L MCHC 26.8 L RDW 20.0 H Plt Count 392 MPV 9.7 Neut % (Auto) 67.5 Lymph % (Auto) 18.3 [place] % (Auto) 11.5 Eos % (Auto) 2.0 Baso % (Auto) 0.2 Neut # (Auto) 5.51 Lymph # (Auto) 1.5 [place] # (Auto) 0.9 Eos # (Auto) 0.2 Baso # (Auto) 0.0 Nucleated RBC % (a uto) 0 Nucleated RBCs # 0.0 Sodium 138 Potassium 4.1 Chloride 105 Carbon Dioxide 26 Anion Gap 11.1 BUN 20 Creatinine 1.2 GFR Calculation 63.3 L Glucose 91 Calculated Osmolal ity 288 Calcium 7.6 L Magnesium 1.9 Total Bilirubin 0.3 AST 22 ALT 28 Alkaline Phosphata se 225 H Total Protein 5.9 L Albumin 2.7 L Globulin 3.2 Vitals: Last Vital Signs Temp 98.7 F 10/02/20 08:00 Pulse 86 10/02/20 08:00 Resp 20 H 10/02/20 08:00 BP 157/85 10/02/20 09:36 Pulse Ox 96 10/02/20 08:00 Discharge Plan Discharge Patient Disposition: Home Condition: Stable Prescriptions: New losartan 50 mg Tablet 50 mg PO DAILY Qty: 30 RF: 0 aspirin 81 mg Tablet,Delayed Release (Dr/Ec) 81 mg PO DAILY Qty: 30 RF: 0 Lasix 20 mg tablet 20 mg PO DAILY Qty: 30 RF: 0 ferrous sulfate 325 mg (65 mg iron) tablet 325 mg PO DAILY Qty: 30 RF: 0 Continued Tylenol Extra Strength 500 mg Tablet 1,000 - 1,500 mg PO PRN RF: 0 Mylanta See Rx Instructions .ROUTE .COMPLEX RF: 0 Tums See Rx Instructions .ROUTE .COMPLEX RF: 0 Discontinued ibuprofen 200 mg Tablet 400 - 800 mg PO PRN RF: 0 Discharge Orders: Discharge Order (Routine); Ordered 10/02/20 Ordered By: Ailyn Rouse Other Ambulatory Orders: Basic Metabolic Panel (Routine) Timeframe: 1 Week Facility: [facility] - Location: Lab - Main Lab Ordered By: Ailyn Rouse Referrals: Myrna Hernandez NP [Primary Care Provider] - 1 week (Myrna Hernandez's office will be calling to set a hospital followup to be seen in 1 week and have BMP Bloodwork done. If you don't hear from them by Sunday, please give them a call. Thank you ) Penelope Morrell MD [Physician] - 1 week ([facility] Will be calling to schedule a cardiology followup to be seen in approx. 1 week. If you don't hear from them by Sunday, please give them a call. Thank you ) Discharge Diet: Cardiac Discharge Activity: Increase activity as tolerated Patient Instructions: Iron Supplements (By mouth), Furosemide (By mouth), Aspirin (By mouth), Losartan (By mouth), Heart Failure (DC), Iron Deficiency Anemia (DC) Activity Restrictions/Additional Instructions: Monitor daily weight. Call PCP if rapidly increasing, Maintain low sodium diet. Follow up with cardiology. Arrange for outpatient sleep study. Discharge Attestations Time Spent in Discharge Care*: greater than 30 min Specific Discharge Activities: educating patient, discussing with pcp/other providers ( Cardiology), discussing with case consultant/social workers/dc planners, documenting/other paperwork and evaluating patient/reviewing data Status at Discharge: Cognitive status at discharge: cognitively intact , Behavioral status at discharge: cooperative , Functional status at discharge: independent ambulation Overall status at discharge: patient is back to baseline Quality Metrics Clinical Quality Measures During this hospital stay, did patient experience: None Coding Level of Care Code Acute Experimental Preflight Mechanic for Chg Fwd Diagnoses Microcytic anemia D50.9 New onset of congestive heart failure I50.9 Right heart failure due to pulmonary hypertension I27.29; I50.810 Concentric left ventricular hypertrophy I51.7 Iron deficiency anemia D50.9
--- NOTE | 2020-10-02 13:03 | PC.NURSE ---
Pt discharged home. Pts IV removed no redness or swelling noted. Pt discharge instructions given along with prescriptions and follow up appointments. Pt had no c/o pain or discomfort at the time of discharge. Pt transferred out via wheelchair.
== END 2020-10-02 13:00 | disposition home or self-care (01) | DRG 293 ==
LOC: ER 19:30 → CSU 09-30 06:07
PROVIDERS: Internal Medicine; Admitting Provider Internal Medicine; Emergency Provider Family Medicine; Family Provider Nurse Practitioner Family; PCP Nurse Practitioner Family; Visit Provider Hospitalist
DX: I11.0 Hypertensive heart disease with heart failure (principal); I50.9 Heart failure, unspecified; Z85.01 Personal history of malignant neoplasm of esophagus; K29.70 Gastritis, unspecified, without bleeding; K21.9 Gastro-esophageal reflux disease without esophagitis; Z90.79 Acquired absence of other genital organ(s); Z87.891 Personal history of nicotine dependence; I42.8 Other cardiomyopathies; D50.9 Iron deficiency anemia, unspecified; Z77.22 Contact with and (suspected) exposure to environmental tobacco smoke (acute) (chronic); I27.20 Pulmonary hypertension, unspecified; Z98.890 Other specified postprocedural states
CPT/HCPCS: 36415; 51702; 71045; 80048; 80053; 80061; 80306; 81003; 82728; 83036; 83540; 83550; 83735; 83880; 84443; 84484; 85025; 93005; 93306; 93970; 96374; 99285; G0378; J1940; J3490

== ENCOUNTER 2020-10-04 21:37 | Emergency (ER) | payer SELFPAY ==
[2020-10-04 22:02] VITALS: BP 187/89; PULSE 94; RESP 14; TEMP 36.8; O2SAT 100; BMI 34.0
--- NOTE | 2020-10-04 22:14 | XRR_ITS ---
PROCEDURE INFORMATION: Exam: XR Chest Exam date and time: 10/04/2020 10:31 PM Age: 55 years old Clinical indication: Shortness of breath; Prior surgery; Surgery type: Esophageal, history of esophageal cancer; Additional info: SOB TECHNIQUE: Imaging protocol: XR of the chest Views: 1 view. COMPARISON: CR XR chest 1V portable [id number] 09/29/2020 6:04 PM FINDINGS: Lungs: No significant airspace disease. Pleural spaces: Stable blunting of the costophrenic angles. Heart/Mediastinum: Cardiomegaly. Bones/joints: Degenerative change and old rib fracture. When correlating with the previous study, no significant interval changes are present. XR/XR chest 1V portable [id number] IMPRESSION: Stable appearance of the chest, not significantly changed from 09/29/20.
--- NOTE | 2020-10-04 22:14 | ECG_ITS ---
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 : 1965 Requested By: Cassandra Kumari Order Number: [id number] Reading MD: YURI VIEIRA Measurements Intervals [place] Rate: 92 P: 78 WI: 159 QRS: -4 QRSD: 94 T: 114 QT: 353 QTc: 437 Interpretive Statements SINUS RHYTHM POSSIBLE LEFT ATRIAL ENLARGEMENT [-0.1mV P WAVE IN V1/V2] MODERATE T-WAVE ABNORMALITY, CONSIDER LATERAL ISCHEMIA [-0.1+ mV T WAVE IN I/aVL/V5/V6] WARNING: DATA QUALITY MAY AFFECT INTERPRETATION Compared to ECG 09/29/2020 23:17:41 Possible ischemia now present T-wave abnormality still present Electronically Signed On 10-05-2020 19:59:44 BUSINESS DEVELOPER by YURI VIEIRA [email or web address]
--- NOTE | 2020-10-04 22:26 | ED_ITS ---
HPI - SOB/Dyspnea General: Chief Complaint: Shortness of Breath/Dyspnea Stated Complaint: difficulty breathing/cp Time Seen by Provider: 10/04/20 22:09 Source: patient Mode of arrival: ambulatory Limitations: no limitations History of Present Illness: HPI Narrative: 55-year-old male who was seen admitted here recently for congestive heart failure. Patient was started on Lasix 20 mg states that since he has been home he has had increased swelling and some shortness of breath. He denies any fever. States dyspnea is worse with exertion. Denies any vomiting or diarrhea. MD elicited complaint: shortness of breath Associated symptoms: Deny abdominal pain, chest pain, fever(s), nausea or vomiting Review of Systems Const: Denies: fever(s), chills, body aches or change in appetite Eyes: Denies: blurry vision or eye discomfort ENMT: Denies: throat pain or dental pain Card: Denies: chest pain Resp: Reports: dyspnea GI: Denies: abdominal pain, nausea, vomiting or diarrhea : Denies: dysuria Musc: Reports: extremity swelling; Denies: neck pain or back pain Skin/Breast: Denies: rash Neuro: Denies: headache(s) Psych: Denies: depression Petar/Lymph: Denies: easy bruising All/Imm: Denies: urticaria PFSH ED PFSH: Medical History Esophageal cancer GERD (gastroesophageal reflux disease) Hypertension Substance abuse Surgical History H/O esophagectomy History of orchiectomy Family History Father Hypertension Social History Smoking and tobacco status: former smoker Alcohol intake: never Housing: House Physical Exam Const: COMMON NORMALS: no acute distress, patient oriented x3 and healthy appearing HENMT: COMMON NORMALS: normocephalic and atraumatic HEAD & SCALP: normocephalic and atraumatic Eye: COMMON NORMALS: Equal, round and reactive pupils present and EOMs intact bilaterally PUPIL: Yes Equal, round and reactive pupils present Neck/C-Spine: COMMON NORMALS: full ROM and supple Chest: COMMONS NORMALS: normal inspection of the chest and normal palpation of entire chest wall Resp: COMMON NORMALS: normal respiratory effort, No retractions, No use of accessory muscles and clear to auscultation bilaterally AUSCULTATION: clear to auscultation bilaterally Cardio: COMMON NORMALS: regular rate, regular rhythm and No murmurs present (Cardio) RATE: regular rate RHYTHM: regular rhythm GI: COMMON NORMALS: Normal to inspection, nondistended, normoactive bowel sounds present, Soft to palpation, non-tender and no masses PALPATION: Yes Soft to palpation Extremity: COMMON NORMALS: normal to inspection and full ROM OTHER: 2+ lower ext edema Neuro: COMMON NORMALS: patient oriented x3, moves all extremities and no focal motor deficits Psych: COMMON NORMALS: mental status grossly normal, Normal thought process present and cooperative THOUGHT PROCESS: Normal thought process present Skin: COMMON NORMALS: no rashes or lesions noted and no wounds GENERAL SKIN EXAM: no rashes or lesions noted Course Vital Signs: Vital signs: Vital Signs Temperature 98.3 F 10/04/20 22:02 Pulse Rate 94 10/04/20 22:02 Respiratory Rate 14 10/04/20 22:02 Blood Pressure 187/89 10/04/20 22:02 Pulse Oximetry 100 10/04/20 22:02 MDM - SOB/Dyspnea MDM Narrative: Medical decision making narrative: 55-year-old presents here with edema he does feel improved after Lasix. Patient x-ray shows no fluid collection and his BNP and troponin are improved from previous. We will increase his home Lasix from 20-40. He has follow-up with cardiology on Sunday and is return if worsening. Lab Data: Labs: Lab Results 10/04/20 10/04/20 10/04/20 Range/Units 22:25 22:25 22:25 WBC 8.2 (4.0-10.0) 10^3/ uL RBC 3.75 L (4.1-5.3) 10^6/u L Hgb 7.1 L (11.7-16.6) g/dL Hct 27.1 L (42.0-52.0) % MCV 72.3 L (80-94) fL MCH 18.9 L (28.0-34.0) pg MCHC 26.2 L (30.0-36.0) g/dL RDW 19.8 H (12.1-15.1) % Plt Count 393 (130-400) 10^3/c mm MPV 9.2 (7.4-10.4) fL Neut % (Auto) 71.2 % Lymph % (Auto) 15.8 % [place] % (Auto) 9.4 % Eos % (Auto) 2.6 % Baso % (Auto) 0.4 % Neut # (Auto) 5.80 (1.8-7.7) 10^3/u L Lymph # (Auto) 1.3 (0.8-4.8) 10^3/u L [place] # (Auto) 0.8 (0.2-0.9) 10^3/u L Eos # (Auto) 0.2 (0.0-0.8) 10^3/u L Baso # (Auto) 0.0 (0.0-0.1) 10^3/u L Nucleated RBC % (a uto) 0 % Nucleated RBCs # 0.0 /100WBC Sodium 137 (136-145) mmol/L Potassium 4.7 (3.5-5.1) mmol/L Chloride 106 (98-107) mmol/L Carbon Dioxide 24 (22-29) mmol/L Anion Gap 11.7 (5-19) BUN 24 H (6-20) mg/dL Creatinine 1.1 (0.7-1.2) mg/dL GFR Calculation 70.0 L (90-130) mL/min Glucose 100 (65-115) mg/dL Calculated Osmolal ity 288 (285-295) mOsm/k g Calcium 7.8 L (8.5-10.5) mg/dL Total Bilirubin 0.2 (0.15-1.2) mg/dL AST 27 (0-40) U/L ALT 36 (0-41) U/L Alkaline Phosphata se 292 H (40-130) IU/L Troponin T Baselin e 38 H (0-15) ng/L NT-Pro-B Natriuret Pep 3464 H (0-125) pg/mL Total Protein 6.2 L (6.6-8.7) g/dL Albumin 3.2 L (3.5-5.2) g/dL Globulin 3.0 (1.3-4.6) g/dL Imaging Data^: CXR: Attestation: I personally reviewed and interpreted this imaging study as follows: My impression: no acute abnormality EKG Data^: EKG 1: Attestation: I personally reviewed and interpreted this EKG as follows: EKG Interpretation Date: 10/04/20 EKG interpretation time: 21:59 Interpretation: nsr hr [address] or t wave abnormalities qrs 94 qtc 403 Discharge Plan Discharge Patient Disposition: Home Clinical Impression: Edema of both lower legs Congestive heart failure Qualifiers: Heart failure type: unspecified Heart failure chronicity: unspecified Qualified Code(s): I50.9 - Heart failure, unspecified Condition: Stable Prescriptions: Changed Lasix 20 mg tablet 40 mg PO DAILY Qty: 30 RF: 0 No Action Tylenol Extra Strength 500 mg Tablet 1,000 - 1,500 mg PO PRN RF: 0 Mylanta See Rx Instructions .ROUTE .COMPLEX RF: 0 Tums See Rx Instructions .ROUTE .COMPLEX RF: 0 losartan 50 mg Tablet 50 mg PO DAILY Qty: 30 RF: 0 aspirin 81 mg Tablet,Delayed Release (Dr/Ec) 81 mg PO DAILY Qty: 30 RF: 0 ferrous sulfate 325 mg (65 mg iron) tablet 325 mg PO DAILY Qty: 30 RF: 0 Discharge Orders: Discharge ED (Routine); Ordered 10/04/20 Ordered By: Cassandra Kumari Referrals: Jm Cotter DO [Primary Care Provider] - 1-3 days Discharge Diet: Advance as tolerated Discharge Activity: Resume usual activity Patient Instructions: Leg Edema (ED) Coding Level of Care Code ED Golf Ball Marker for Chg Fwd Exam Comprehensive
[2020-10-04 22:34] LABS: Basophils % 0.4 %; Eosinophils # 0.2 10^3/uL (0.0-0.8); Eosinophils % 2.6 %; Hematocrit 27.1 % (42.0-52.0); Hemoglobin 7.1 g/dL (11.7-16.6); Lymphocytes # 1.3 10^3/uL (0.8-4.8); Lymphocytes % 15.8 %; Mean Corpuscular HGB Conc 26.2 g/dL (30.0-36.0); Mean Corpuscular Hemoglobin 18.9 pg (28.0-34.0); Mean Corpuscular Volume 72.3 fL (80-94); Mean Platelet Volume 9.2 fL (7.4-10.4); Monocytes # 0.8 10^3/uL (0.2-0.9); Monocytes % 9.4 %; Neutrophils % 71.2 %; Nucleated Red Blood Cells % 0 %; Platelet Count 393 10^3/cmm (130-400); Red Blood Count 3.75 10^6/uL (4.1-5.3); Red Cell Distribution Width 19.8 % (12.1-15.1); White Blood Count 8.2 10^3/uL (4.0-10.0)
[2020-10-04] MEDS: FUROsemide 10 mg/mL SDV 10mL 60 MG IVP (22:39)
[2020-10-04 22:56] LABS: Troponin(5th) Baseline 38 ng/L (0-15)
[2020-10-04 23:03] LABS: Alanine Aminotransferase 36 U/L (0-41); Albumin Level 3.2 g/dL (3.5-5.2); Alkaline Phosphatase 292 IU/L (40-130); Anion Gap 11.7 (5-19); Aspartate Amino Transferase 27 U/L (0-40); Blood Urea Nitrogen 24 mg/dL (6-20); Calcium 7.8 mg/dL (8.5-10.5); Carbon Dioxide 24 mmol/L (22-29); Chloride 106 mmol/L (98-107); Glucose 100 mg/dL (65-115); NT Pro B Type Natriuretic Pept 3464 pg/mL (0-125); Osmolality Calculated 288 mOsm/kg (285-295); Potassium 4.7 mmol/L (3.5-5.1); Sodium 137 mmol/L (136-145); Total Bilirubin 0.2 mg/dL (0.15-1.2); Total Protein 6.2 g/dL (6.6-8.7)
[2020-10-04 23:45] VITALS: BP 172/82; PULSE 92; RESP 16; O2SAT 100
== END 2020-10-04 23:38 | disposition home or self-care (01) ==
PROVIDERS: Emergency Provider Emergency Medicine; PCP Internal Medicine
DX: I11.0 Hypertensive heart disease with heart failure (principal); I50.9 Heart failure, unspecified; R60.0 Localized edema; Z79.82 Long term (current) use of aspirin; Z85.01 Personal history of malignant neoplasm of esophagus; Z87.891 Personal history of nicotine dependence
CPT/HCPCS: 71045; 80053; 83880; 84484; 85025; 93005; 96374; 99283; J1940

== ENCOUNTER 2020-10-09 08:50 | Outpatient (CLI) | payer SELFPAY ==
[2020-10-09 09:23] LABS: Anion Gap 12.2 (5-19); Blood Urea Nitrogen 21 mg/dL (6-20); Calcium 8.7 mg/dL (8.5-10.5); Carbon Dioxide 29 mmol/L (22-29); Chloride 99 mmol/L (98-107); Glucose 79 mg/dL (65-115); Osmolality Calculated 282 mOsm/kg (285-295); Potassium 5.2 mmol/L (3.5-5.1); Sodium 135 mmol/L (136-145)
== END 2020-10-09 08:51 | disposition home or self-care (01) ==
PROVIDERS: PCP Internal Medicine; Visit Provider Hospitalist
DX: I27.29 Other secondary pulmonary hypertension (principal)
CPT/HCPCS: 36415; 80048

== ENCOUNTER → 2020-10-13 16:30 | Outpatient (BNVA) | payer SELFPAY | PROVIDERS: PCP Internal Medicine; Visit Provider Internal Medicine Cardiovascular Disease | DX: I11.0 Hypertensive heart disease with heart failure (principal); I50.9 Heart failure, unspecified; I51.7 Cardiomegaly; K21.9 Gastro-esophageal reflux disease without esophagitis; I27.20 Pulmonary hypertension, unspecified; R29.818 Other symptoms and signs involving the nervous system; D50.9 Iron deficiency anemia, unspecified; I48.3 Typical atrial flutter; Z87.891 Personal history of nicotine dependence; N17.9 Acute kidney failure, unspecified | CPT/HCPCS: 80048; 83735; 83880; 85025 ==

== ENCOUNTER → 2021-01-28 10:55 | Outpatient (BNVA) | payer SELFPAY | PROVIDERS: PCP Internal Medicine; Visit Provider Internal Medicine Cardiovascular Disease | DX: I50.9 Heart failure, unspecified (principal); I48.3 Typical atrial flutter; I10 Essential (primary) hypertension; I51.7 Cardiomegaly; I27.20 Pulmonary hypertension, unspecified; N17.9 Acute kidney failure, unspecified; R29.818 Other symptoms and signs involving the nervous system; K21.9 Gastro-esophageal reflux disease without esophagitis | CPT/HCPCS: 80053; 83735; 83880; 85025 ==

== ENCOUNTER → 2021-04-22 10:05 | Outpatient (BNVA) | payer OTHER, SELFPAY | PROVIDERS: PCP Internal Medicine; Visit Provider Surgery | DX: Z20.822 Contact with and (suspected) exposure to COVID-19 (principal) | CPT/HCPCS: 87635 ==

== ENCOUNTER 2021-04-28 08:09 | Day surgery (SDC) | payer MEDICAID, SELFPAY ==
[2021-04-25 10:29] VITALS: BMI 30.3
--- NOTE | 2021-04-28 08:27 | ANES.PREANE2 ---
Pre-Anesthetic Assessment Pre-Anesthetic Assessment: Height/Weight: Height 1.85 m Weight 104.326 kg Preop Diagnosis: panendoscopy Proposed Procedure: Operation Date: 04/28/21 09:45 Proposed Procedures p EGD 92682 [id number] d50.9(Not Applicable) - Livan Weber MD s Colonoscopy(Not Applicable) - Livan Weber MD Was Beta Nga taken within 24 hours: Yes Was Clonidine taken within 24 hours: N/A Social: Social History: Tobacco (Chews) and No alcohol Exam: Pre-Anes Outpt Exam: alert, oriented x 3, clear to auscultation bilaterally and regular rate & rhythm Airway: Submandibular: WNL Cervical ROM: WNL MP: 2 Dentition: Chipped Additional comments: Very poor dentition CV/HEM: CV/HEM: Afib, Anemia, Arrythmia, CHF and HTN Comments: Pulmonary HTN GI: GI: GERD Anesthetic Plan: ASA status: 3 Anesthesia: MAC Risk of > 500 ml blood loss (7ml/kg in children): No PFSH Anesthesia PFSH: Medical History (Updated 03/08/21 @ 09:59 by Livan Weber MD) Esophageal cancer GERD (gastroesophageal reflux disease) Hypertension Pulmonary hypertension Surgical History (Updated 03/08/21 @ 10:02 by Livan Weber MD) H/O esophagectomy H/O esophagogastroduodenoscopy History of orchiectomy Family History Father Hypertension Social History Smoking and tobacco status: never smoked Alcohol intake: never Housing: House Data Anesthesia Cardiac Studies: Holter Monitor 10/29/20
[2021-04-28 08:51] VITALS: BP 166/113; PULSE 78; RESP 18; TEMP 36.5; O2SAT 100
--- NOTE | 2021-04-28 09:06 | W.PM.OPSFHP ---
Same Day Surgery H&P Indication for Procedure/HPI DATE OF PROCEDURE: April 28, 2021 CHIEF COMPLAINT/INDICATIONFOR SURGICAL PROCEDURE: anemia for panendoscopy PREOP DIAGNOSIS: panendoscopy PLANNED PROCEDRUE: Operation Date: 04/28/21 09:45 Proposed Procedures p EGD 00099 [id number] d50.9(Not Applicable) - Livan Weber MD s Colonoscopy(Not Applicable) - Livan Weber MD Medications/Allergies* Home Medications Medication Instructions Recorded Confirmed Type Mylanta See Rx Instructions .ROUTE .COMPLEX 09/29/20 04/28/21 History Tums See Rx Instructions .ROUTE .COMPLEX 09/29/20 04/28/21 History acetaminophen [Tylenol Extra 1,000 - 1,500 mg PO PRN 09/29/20 04/28/21 History Strength] Allergies/Adverse Reactions Allergy/AdvReac Type Severity Reaction Status Date / Time Penicillins Allergy Unknown Verified 04/28/21 09:06 Pertinent History/Comorbid Conditions* Medical History (Updated 03/08/21 @ 09:59 by Livan Weber MD) Esophageal cancer GERD (gastroesophageal reflux disease) Hypertension Pulmonary hypertension Surgical History (Updated 03/08/21 @ 10:02 by Livan Weber MD) H/O esophagectomy H/O esophagogastroduodenoscopy History of orchiectomy Family History (Updated 09/29/20 @ 19:31 by Penelope Dobbs MD) Hypertension Father Social History Smoking and tobacco status: never smoked Alcohol intake: never Housing: House Pertinent Exam Findings alert, oriented x 3 and regular rate & rhythm Recommendations Surgery/Procedure today Coding Level of Care Code Acute Lodging Facilities Attendant for Jayjayg Yifan
[2021-04-28] MEDS: sodium chloride 0.9% 1,000 ML 30 ML IV (09:10)
[2021-04-28 10:57] VITALS: BP 104/80; PULSE 83; RESP 16; TEMP 36.1; O2SAT 98
[2021-04-28 11:13] VITALS: BP 142/91; PULSE 84; RESP 18; O2SAT 100
--- NOTE | 2021-04-28 14:24 | ANE.PACU2 ---
Inpatient post-anesthesia follow up: Airway intact: Yes Vital signs: Temperature 97 F Pulse Rate 84 Respiratory Rate 18 Blood Pressure 142/91 Pulse Oximetry 100 Oxygen Delivery Me thod Room Air Oxygen Flow Rate 3 Fraction of Inspir ed Oxygen Hydration adequate: Yes Nausea and vomiting: No Pain level: 1 Mental status: Baseline
== END 2021-04-28 11:32 | disposition home or self-care (01) ==
PROVIDERS: PCP Internal Medicine; Visit Provider Surgery
PROC: 0DJ08ZZ Inspection of Upper Intestinal Tract, Via Natural or Artificial Opening Endoscopic (ICD-10-PCS; CPT 43235; principal; 2021-04-28 09:45)
PROC: 0DJD8ZZ Inspection of Lower Intestinal Tract, Via Natural or Artificial Opening Endoscopic (ICD-10-PCS; CPT 45378; 2021-04-28 09:45)
DX: D50.9 Iron deficiency anemia, unspecified (principal); K22.8 Other specified diseases of esophagus; K44.9 Diaphragmatic hernia without obstruction or gangrene; K20.90 Esophagitis, unspecified without bleeding; D12.4 Benign neoplasm of descending colon; D12.5 Benign neoplasm of sigmoid colon; K64.8 Other hemorrhoids; I48.91 Unspecified atrial fibrillation; I11.0 Hypertensive heart disease with heart failure; I50.9 Heart failure, unspecified; K21.9 Gastro-esophageal reflux disease without esophagitis
CPT/HCPCS: 43251; 45380; 45385; 88305; 96360; 96361; J2704; J7030

== ENCOUNTER → 2021-05-10 14:13 | Outpatient (BNVA) | payer MEDICAID, SELFPAY | PROVIDERS: PCP Internal Medicine; Visit Provider Internal Medicine Cardiovascular Disease | DX: I48.3 Typical atrial flutter (principal); I50.9 Heart failure, unspecified; I10 Essential (primary) hypertension; I51.7 Cardiomegaly; I27.20 Pulmonary hypertension, unspecified; R29.818 Other symptoms and signs involving the nervous system; K21.9 Gastro-esophageal reflux disease without esophagitis; G47.10 Hypersomnia, unspecified | CPT/HCPCS: 80053; 83735; 83880; 85025; 85610 ==

== ENCOUNTER → 2021-05-25 10:12 | Outpatient (BNVA) | payer MEDICAID, SELFPAY | PROVIDERS: PCP Internal Medicine; Visit Provider Internal Medicine Cardiovascular Disease | DX: I50.9 Heart failure, unspecified (principal); I10 Essential (primary) hypertension | CPT/HCPCS: 80048; 83735; 83880 ==

== ENCOUNTER 2021-08-25 20:00 | Outpatient (CLI) | payer MEDICAID, SELFPAY | END 2021-08-25 20:01 | disposition home or self-care (01) | LOC: SLEEP 08-26 07:03 | PROVIDERS: PCP Internal Medicine; Visit Provider Internal Medicine Cardiovascular Disease | DX: G47.33 Obstructive sleep apnea (adult) (pediatric) (principal) | CPT/HCPCS: 95811 ==

== ENCOUNTER → 2021-09-16 09:42 | Outpatient (BNVA) | payer MEDICAID, SELFPAY | PROVIDERS: PCP Internal Medicine; Visit Provider Internal Medicine Cardiovascular Disease | DX: I48.3 Typical atrial flutter (principal); I50.9 Heart failure, unspecified; I10 Essential (primary) hypertension; I27.20 Pulmonary hypertension, unspecified; I48.92 Unspecified atrial flutter; I51.7 Cardiomegaly; R29.818 Other symptoms and signs involving the nervous system; K21.9 Gastro-esophageal reflux disease without esophagitis; G47.33 Obstructive sleep apnea (adult) (pediatric) | CPT/HCPCS: 80053; 83880; 85610 ==

== ENCOUNTER → 2022-01-30 12:10 | Outpatient (BNVA) | payer MEDICAID, SELFPAY | PROVIDERS: PCP Internal Medicine; Visit Provider Internal Medicine Cardiovascular Disease | DX: I48.3 Typical atrial flutter (principal); G47.33 Obstructive sleep apnea (adult) (pediatric); I27.20 Pulmonary hypertension, unspecified; D50.9 Iron deficiency anemia, unspecified; I51.7 Cardiomegaly; N17.9 Acute kidney failure, unspecified | CPT/HCPCS: 99213 ==

== ENCOUNTER → 2022-02-09 08:52 | Outpatient (BNVA) | payer MEDICAID, SELFPAY | PROVIDERS: Visit Provider Family Medicine | DX: G47.33 Obstructive sleep apnea (adult) (pediatric) (principal); Z76.89 Persons encountering health services in other specified circumstances; K20.90 Esophagitis, unspecified without bleeding; I27.29 Other secondary pulmonary hypertension; I50.810 Right heart failure, unspecified; I27.20 Pulmonary hypertension, unspecified; I48.3 Typical atrial flutter; Z79.01 Long term (current) use of anticoagulants; I10 Essential (primary) hypertension | CPT/HCPCS: 80053; 80061; 84153; 85025; 85610 ==

== ENCOUNTER → 2022-03-02 13:06 | Outpatient (BNVA) | payer MEDICAID, SELFPAY | PROVIDERS: Visit Provider Family Medicine Adult Medicine | DX: I48.3 Typical atrial flutter (principal); I10 Essential (primary) hypertension | CPT/HCPCS: 85610 ==

== ENCOUNTER → 2022-03-17 09:31 | Outpatient (BNVA) | payer MEDICAID, SELFPAY | PROVIDERS: Visit Provider Internal Medicine Cardiovascular Disease | DX: I48.3 Typical atrial flutter (principal); Z79.01 Long term (current) use of anticoagulants; I11.0 Hypertensive heart disease with heart failure; I50.9 Heart failure, unspecified; G47.33 Obstructive sleep apnea (adult) (pediatric) | CPT/HCPCS: 85610; 99214 ==

== ENCOUNTER → 2022-03-20 09:46 | Outpatient (BNVA) | payer MEDICAID, SELFPAY | PROVIDERS: Visit Provider Surgery | DX: Z98.890 Other specified postprocedural states; Z90.49 Acquired absence of other specified parts of digestive tract | CPT/HCPCS: 99213 ==

== ENCOUNTER → 2022-03-23 09:03 | Outpatient (BNVA) | payer MEDICAID, SELFPAY | PROVIDERS: Visit Provider Family Medicine | DX: I48.91 Unspecified atrial fibrillation (principal); R11.0 Nausea | CPT/HCPCS: 80048; 85610 ==

== ENCOUNTER 2022-04-06 12:23 | Observation (INO) | payer MEDICAID, SELFPAY ==
[2022-04-06] VITALS (20 sets, daily range): BP systolic 135–181; BP diastolic 87–131; PULSE 61–107; RESP 15–29; TEMP 36.6–36.7; O2SAT 97–100
--- NOTE | 2022-04-06 12:36 | W.ED.CHESTPA ---
HPI - Chest Pain General: Chief Complaint: Chest Pain Stated Complaint: HBP Chest pains, SOB Time Seen by Provider: 04/06/22 12:36 History of Present Illness: Mr. Mejia is a 56-year-old gentleman with significant past medical history of hypertension, esophageal cancer status post treatment, LVH, CHF, A. fib on warfarin presenting to the emergency department due to uncontrolled blood pressure and shortness of breath with chest discomfort. He reports longstanding history of difficult to control blood pressure despite increases in medications and addition of medication in the outpatient setting. Lately he has had more frequent episodes of substernal chest discomfort and/or shortness of breath with decreased exertional tolerance. Denies infectious symptoms. Reports compliance with his medication regimen. No other specific changes in health, exacerbating, or alleviating factors identified. Onset (ago): day(s) Onset: during rest Pain location: substernal Severity: moderate Exacerbating factors: exertion Associated symptoms: Reports dyspnea and other Review of Systems General: Reports: 10 or more systems reviewed and unremarkable except in HPI and below Resp: Reports: dyspnea PFSH ED PFSH: Medical History Allergic rhinitis due to allergen Colon polyps Dental caries associated with enamel hypomineralization Esophagitis GERD (gastroesophageal reflux disease) Hx of esophageal malignancy Hypertension VAHE (obstructive sleep apnea) Pulmonary hypertension Surgical History H/O esophagectomy H/O esophagogastroduodenoscopy (04/28/21) Distal esophageal polyp and grade C esophagitis History of orchiectomy Status post colonoscopy (04/28/21) Family History Father Hypertension Social History Smoking and tobacco status: never smoked Alcohol intake: never Housing: House Physical Exam Const: COMMON NORMALS: alert GENERAL APPEARANCE: cooperative and well developed HENMT: COMMON NORMALS: normocephalic and atraumatic HEAD & SCALP: normocephalic and atraumatic Eye: COMMON NORMALS: conjunctivae normal CONJUNCTIVA: Yes conjunctivae normal SCLERA: sclerae normal Neck/C-Spine: COMMON NORMALS: supple GENERAL: Yes trachea midline Resp: COMMON NORMALS: normal respiratory effort and clear to auscultation bilaterally EFFORT & INSPECTION: Yes able to speak in complete sentences AUSCULTATION: clear to auscultation bilaterally Cardio: COMMON NORMALS: regular rate and regular rhythm RATE: regular rate RHYTHM: regular rhythm GI: COMMON NORMALS: Soft to palpation PALPATION: Yes Soft to palpation and No Tenderness to palpation present (GI) Extremity: GENERAL: Yes normal exam except as noted and No edema Neuro: COMMON NORMALS: moves all extremities SENSORIUM/ORIENTATION: Yes alert and No Orientation impaired Psych: COMMON NORMALS: mental status grossly normal and Normal thought process present THOUGHT PROCESS: Normal thought process present Course ED course: - Patient was seen and evaluated by me at bedside - Patient placed on cardiac monitors, IV access obtained - Initial evaluation notable for exam as above - Labs and xrays personally interpreted by me. EKG shows atrial fibrillation with controlled ventricular response. No STEMI. - Labs notable for no leukocytosis, normal hemoglobin. Metabolic panel with mild hyponatremia. Delta troponin negative. BNP elevated. - Imaging notable for no lobar consolidation or pneumothorax - Upon serial reexamination after treatment the patient was improved after 20 mg diltiazem and 20 mg labetalol IV - Discussed with cardiology, recommend switching metoprolol to labetalol 100 3 times daily and observe overnight. - Based on patient history, evaluation, and testing as interpreted the most likely cause of the patient's condition is hypertensive urgency - The results of ED evaluation were discussed with the patient including plan for admission due to requirement for level of care not available if discharged to prevent significant worsening/deterioration. - Admitting service was contacted and Dr Small with the hospitalist service agreed to admit the patient - Patient was admitted without further deterioration or significant events. Note: Click bubbles or prepopulated clark in note writing are used for assistance with data collection and billing and are inherently more limited than narrative and other text portions of this note. Please use narrative for additional clinical history and defer to narrative/free test for any case of contradictory information. If information appears in only free text or click bubble it should be considered present or absent as reported. Please contact note video games storywriter for clarifications of clinical information or contradictory information. MDM is a brief summary, contradictory or erroneous seeming information should be clarified and full note should be reviewed. Vital Signs: Vital signs: Vital Signs Temperature 97.7 F 04/08/22 14:38 Pulse Rate 65 04/08/22 14:38 Respiratory Rate 15 04/08/22 14:38 Blood Pressure 119/75 04/08/22 14:38 Pulse Oximetry 94 04/08/22 14:38 Oxygen Delivery Me thod 04/08/22 11:23 MDM - Chest Pain Medical Decision Making 56-year-old gentleman presenting with hypotension associated with shortness of increased frequency of chest discomfort. Discussed with cardiology and patient admitted for observation for medication change. Medical Records I reviewed the patient's medical records. Lab Data I reviewed the patient's lab results. : 04/07/22 05:14 04/07/22 05:14 Radiology Impressions Chest X-Ray 04/06/22 12:57 IMPRESSION: 1. No acute cardiopulmonary finding. 2. Cardiac enlargement unchanged. 3. Chronic interstitial changes. Laboratory Results WBC 6.6 10^3/uL (4.0-10.0) 04/06/22 13:10 RBC 4.71 10^6/uL (4.1-5.3) 04/06/22 13:10 Hgb 12.0 g/dL (11.7-16.6) 04/06/22 13:10 Hct 40.2 % (42.0-52.0) L 04/06/22 13:10 MCV 85.4 fl (80-94) 04/06/22 13:10 MCH 25.5 pg (28.0-34.0) L 04/06/22 13:10 MCHC 29.9 g/dL (30.0-36.0) L 04/06/22 13:10 RDW 16.3 % (12.1-15.1) H 04/06/22 13:10 Plt Count 290 10^3/cmm (130-400) 04/06/22 13:10 MPV 9.5 fL (7.4-10.4) 04/06/22 13:10 Neut % (Auto) 75.5 % 04/06/22 13:10 Lymph % (Auto) 15.7 % 04/06/22 13:10 Graves % (Auto) 6.1 % 04/06/22 13:10 Eos % (Auto) 2.0 % 04/06/22 13:10 Baso % (Auto) 0.5 % 04/06/22 13:10 Neut # (Auto) 4.96 10^3/uL (1.8-7.7) 04/06/22 13:10 Lymph # (Auto) 1.0 10^3/uL (0.8-4.8) 04/06/22 13:10 Graves # (Auto) 0.4 10^3/uL (0.2-0.9) 04/06/22 13:10 Eos # (Auto) 0.1 10^3/uL (0.0-0.8) 04/06/22 13:10 Baso # (Auto) 0.0 10^3/uL (0.0-0.1) 04/06/22 13:10 Nucleated RBC % (auto) 0 % 04/06/22 13:10 Nucleated RBCs # 0.0 /100WBC 04/06/22 13:10 PT 13.90 SECONDS (12.1-14.9) 04/06/22 13:10 INR 1.04 (0.8-1.2) 04/06/22 13:10 APTT 30.0 SECONDS (23.9-36.7) 04/06/22 13:10 Sodium 135 mmol/L (136-145) L 04/06/22 13:10 Potassium 4.0 mmol/L (3.5-5.1) 04/06/22 13:10 Chloride 102 mmol/L (98-107) 04/06/22 13:10 Carbon Dioxide 25 mmol/L (22-29) 04/06/22 13:10 Anion Gap 12.0 (5-19) 04/06/22 13:10 BUN 14 mg/dL (6-20) 04/06/22 13:10 Creatinine 1.2 mg/dL (0.7-1.2) 04/06/22 13:10 GFR Calculation 63.1 mL/min (90-130) L 04/06/22 13:10 Glucose 107 mg/dL (65-115) 04/06/22 13:10 Estimat Average Glucose 120 04/06/22 13:10 Hemoglobin A1c 5.8 % (4.0-6.0) 04/06/22 13:10 Calculated Osmolality 281 mOsm/kg (285-295) L 04/06/22 13:10 Calcium 8.6 mg/dL (8.5-10.5) 04/06/22 13:10 Total Bilirubin 0.4 mg/dL (0.15-1.2) 04/06/22 13:10 AST 20 U/L (0-40) 04/06/22 13:10 ALT 31 U/L (0-41) 04/06/22 13:10 Alkaline Phosphatase 158 U/L (40-130) H 04/06/22 13:10 Troponin T Baseline 35 ng/L (0-15) H 04/06/22 13:10 Troponin T 120 Minute 26.92 ng/L (0-15) H 04/06/22 15:14 Delta Troponin T -8.08 ABS# (0-10) L 04/06/22 15:14 NT-Pro-B Natriuret Pep 2530 pg/mL (0-125) H 04/06/22 13:10 NT-Pro-B Natriuret Pep 2623 pg/mL (0-125) H 04/06/22 13:10 Total Protein 6.5 g/dL (6.6-8.7) L 04/06/22 13:10 Albumin 3.5 g/dL (3.5-5.2) 04/06/22 13:10 Globulin 3.0 g/dL (1.3-4.6) 04/06/22 13:10 Triglycerides 52 mg/dL (0-150) 04/06/22 13:10 Cholesterol 152 mg/dL (0-200) 04/06/22 13:10 LDL Cholesterol, Calc 103 mg/dL (50-129) 04/06/22 13:10 HDL Cholesterol 39 mg/dL (60-100) L 04/06/22 13:10 LDL/HDL Ratio 2.64 RATIO (0.00-3.22) 04/06/22 13:10 Cholesterol/HDL Ratio 3.90 mg/dL (1.0-5.00) 04/06/22 13:10 TSH 1.76 uIU/mL (0.27-4.20) 04/06/22 13:10 Discharge Plan Discharge Patient Disposition: Placed in Observation Admit Provider: Earlene Small Clinical Impression: Hypertensive urgency, On warfarin therapy, Chest pain, Acute dyspnea Discharge Diet: Cardiac and Low Salt Discharge Activity: Resume usual activity Coding Level of Care Code ED Pot [place] for Chg Fwd Exam Comprehensive
--- NOTE | 2022-04-06 12:57 | XR_ITS ---
WS: [id number] Exam: XR chest 1V portable [id number] Date/Time of Exam: 04/06/2022 1:02 PM Reason For Exam: cp Comparison 10/04/2020. The lungs are fully expanded and clear. Chronic interstitial changes. The heart is enlarged but uncha nged in size. No pleural effusions. The mediastinum is normal in contour. At least one old right rib fracture noted. XR/XR chest 1V portable [id number] IMPRESSION: 1. No acute cardiopulmonary finding. 2. Cardiac enlargement unchanged. 3. Chronic interstitial changes.
--- NOTE | 2022-04-06 12:57 | ECG_ITS ---
[facility] Test Date: 2022-04-06 Pat Name: Ty Mejia Department: Room: Gender: Male Campaign Analyst: : 1965 Requested By: Sesar Harp Order Number: [id number] Maria T MD: Guerline Worley M.D. Measurements Intervals [place] Rate: 99 P: ME: QRS: 56 QRSD: 95 T: 71 QT: 374 QTc: 480 Interpretive Statements ATRIAL FIBRILLATION NONSPECIFIC T-WAVE ABNORMALITY ABNORMAL RHYTHM ECG Compared to ECG 10/04/2020 21:59:20 Sinus rhythm no longer present Possible ischemia no longer present T-wave abnormality still present Electronically Signed On 04-07-2022 15:35:58 CDT by Guerline Worley M.D. [email or web address]/store/[id number] f
--- NOTE | 2022-04-06 13:00 | PC.NURSE ---
PT PLACED ON CONTINUOUS NIB, SPO2, AND CM
[2022-04-06 13:17] LABS: Basophils % 0.5 %; Eosinophils # 0.1 10^3/uL (0.0-0.8); Hematocrit 40.2 % (42.0-52.0); Lymphocytes % 15.7 %; Mean Corpuscular HGB Conc 29.9 g/dL (30.0-36.0); Mean Corpuscular Hemoglobin 25.5 pg (28.0-34.0); Mean Corpuscular Volume 85.4 fl (80-94); Mean Platelet Volume 9.5 fL (7.4-10.4); Monocytes # 0.4 10^3/uL (0.2-0.9); Monocytes % 6.1 %; Neutrophils # 4.96 10^3/uL (1.8-7.7); Neutrophils % 75.5 %; Nucleated Red Blood Cells % 0 %; Platelet Count 290 10^3/cmm (130-400); Red Blood Count 4.71 10^6/uL (4.1-5.3); Red Cell Distribution Width 16.3 % (12.1-15.1); White Blood Count 6.6 10^3/uL (4.0-10.0)
[2022-04-06 13:45] LABS: Troponin(5th) Baseline 35 ng/L (0-15)
[2022-04-06 13:53] LABS: Alanine Aminotransferase 31 U/L (0-41); Albumin Level 3.5 g/dL (3.5-5.2); Alkaline Phosphatase 158 U/L (40-130); Aspartate Amino Transferase 20 U/L (0-40); Blood Urea Nitrogen 14 mg/dL (6-20); Calcium 8.6 mg/dL (8.5-10.5); Carbon Dioxide 25 mmol/L (22-29); Chloride 102 mmol/L (98-107); Glomerular Filtration Rate 63.1 mL/min (90-130); Glucose 107 mg/dL (65-115); NT Pro B Type Natriuretic Pept 2530 pg/mL (0-125); Osmolality Calculated 281 mOsm/kg (285-295); Sodium 135 mmol/L (136-145); Total Bilirubin 0.4 mg/dL (0.15-1.2); Total Protein 6.5 g/dL (6.6-8.7)
--- NOTE | 2022-04-06 13:55 | PC.PHAR ---
PT AND PTS MOTHER VERIFIED PTS MEDICATIONS-PT AND PTS MOTHER STATES THE PT TAKES LASIX 80MG DAILY FILLED 03/23/22 30D/S RX WRITTEN 03/17/22 80MG BID-PTS MOTHER STATES THE PT TAKES METOPROLOL TARTRATE 150MG QAM AND 100MG QPM FILLED ON 03/17/22 RX WRITTEN ON 03/17/22 DR. VERDUGO FOR 100MG BID-PT STATES HE TAKES MYLANTA TID AND NOT PRN-NOTES ARE MADE IN THE PHARMACY COMMENTS
[2022-04-06] MEDS: dilTIAZem 5 mg/mL SDV 5 mL 20 MG IVP (13:58)
[2022-04-06 15:45] LABS: Troponin 5 2HR 26.92 ng/L (0-15)
[2022-04-06] MEDS: labetalol 5 mg/mL SDV 20mL 20 MG IVP (15:46)
[2022-04-06 15:47] LABS: Troponin 5 2HR Delta -8.08 ABS# (0-10)
[2022-04-06 16:37] LABS: INR 1.04 (0.8-1.2)
[2022-04-06 17:08] LABS: Cholesterol 152 mg/dL (0-200); HDL Cholesterol 39 mg/dL (60-100); LDL Cholesterol Calculated 103 mg/dL (50-129); LDL HDL Ratio 2.64 RATIO (0.00-3.22); NT Pro B Type Natriuretic Pept 2623 pg/mL (0-125); Thyroid Stimulating Hormone 1.76 uIU/mL (0.27-4.20); Triglycerides 52 mg/dL (0-150)
[2022-04-06 17:34] LABS: Estmated Average Glucose 120; Hemoglobin A1C 5.8 % (4.0-6.0)
[2022-04-06] MEDS: heparin 5,000 unit/mL INJ 1 mL 5000 UNIT SUBCUT (17:35)
--- NOTE | 2022-04-06 18:04 | P.HP_ITS ---
Providers/Chief Complaint Chief Complaint: HBP Chest pains, SOB History of Present Illness Ty Mejia is a 56 year old male who is currently seeing Dr. Pal for his resistant hypertension currently on multiple antibiotic regimen with good control of his blood pressure no previous history of cardiac disease, [place], aortic dissection or renal artery disease presenting today with chief complaint of weakness, chest pain and hypertensive episode. Patient is stating that for last few weeks he has been experiencing chest pain which he describes as pressure- like sensation which radiates towards his left arm and jaw and left side of his neck associated with some numbness of his left arm, his pain would last for few seconds especially at nighttime patient is stating that he has history of esophageal cancer that was operated on 2019 since then he cannot lay flat he does get some discomfort on laying flat, tolerates regular food his EF is 55% he was given diuretics for diastolic heart failure, also has history of atrial flutter, takes Coumadin he has not received his CPAP because of denial. In the ER he was diagnosed with hypertensive emergency, he was given labetalol, no active chest pain at the time my evaluation he is eating his dinner I requested secondary hypertension work-up Added Cardene drip along labetalol requested stress test in the morning EKG changes of chronic Sent nonsignificant delta of troponin BNP 2600 Requested drug screen TSH is normal Review of Systems Const: Reports: chills, body aches and fatigue Eyes: Denies: change in vision ENMT: Denies: throat pain Card: Reports: chest pain, swelling of feet/ankles, dyspnea on exertion and orthopnea Resp: Reports: dyspnea GI: Reports: heartburn and bloating : Denies: flank pain Musc: Denies: neck pain Skin/Breast: Denies: rash Neuro: Reports: headache(s) Psych: Denies: anxiety Endo: Denies: polyuria Petar/Lymph: Denies: easy bruising All/Imm: Denies: urticaria Medications/Allergies Home Medications Medication Instructions Recorded Confirmed Last Taken Type acetaminophen 500 mg tablet 1,000 - 1,500 mg PO Q6H PRN Pain 09/29/20 04/06/22 1 Month Ago History (Tylenol Extra Strength) ~03/28/21 metoclopramide HCl 10 mg tablet 10 mg PO TIDWMEAL PRN stomach 02/24/22 04/06/22 Unknown Rx (Reglan) upset #90 tabs pantoprazole 40 mg tablet,delayed 40 mg PO BID PRN throat burning 02/24/22 04/06/22 Unknown Rx release (Protonix) #30 tabs ketotifen fumarate 0.025 % (0.035 1 drp ophthalmic (eye) BID PRN 03/16/22 04/06/22 Unknown Rx %) eye drops (Allergy Eye allergy symptoms #5 mL (ketotifen)) furosemide 80 mg tablet 80 mg PO QAM 03/17/22 04/06/22 04/05/22 History aluminum-mag hydroxide-simethicone 15 ml PO TID 04/06/22 04/06/22 Unknown History 200 mg-200 mg-20 mg/5 mL oral susp amlodipine 10 mg tablet 10 mg PO QAM 04/06/22 04/06/22 Unknown History aspirin 81 mg tablet,delayed 81 mg PO QAM 04/06/22 04/06/22 04/05/22 History release calcium carbonate 200 mg calcium 200 mg PO QID PRN Indigestion 04/06/22 04/06/22 Unknown History (500 mg) chewable tablet (Tums) diltiazem HCl 180 mg 180 mg PO QAM 04/06/22 04/06/22 04/05/22 History capsule,extended release 24 hr (Cardizem CD) loratadine 10 mg tablet 10 mg PO QAM 04/06/22 04/06/22 04/05/22 History metoprolol tartrate 100 mg tablet See Rx Instructions .Route .COMPLEX 04/06/22 04/06/22 04/05/22 History spironolactone 50 mg tablet 100 mg PO QAM High blood pressure 04/06/22 04/06/22 04/05/22 History & CHF warfarin 6 mg tablet See Rx Instructions .Route .COMPLEX 04/06/22 04/06/22 Unknown History Allergies Allergy/AdvReac Type Severity Reaction Status Date / Time Penicillins Allergy Unknown Verified 04/06/22 13:44 PFSH Acute PFSH: Medical History Allergic rhinitis due to allergen Colon polyps Dental caries associated with enamel hypomineralization Esophagitis GERD (gastroesophageal reflux disease) Hx of esophageal malignancy Hypertension VAHE (obstructive sleep apnea) Pulmonary hypertension Surgical History H/O esophagectomy H/O esophagogastroduodenoscopy (04/28/21) Distal esophageal polyp and grade C esophagitis History of orchiectomy Status post colonoscopy (04/28/21) Family History Father Hypertension Social History Smoking and tobacco status: never smoked Alcohol intake: never Housing: House Vitals/I&O/Wt Last Vital Signs Temp 97.9 F 04/06/22 12:38 Pulse 80 04/06/22 17:00 Resp 19 H 04/06/22 17:00 BP 143/101 04/06/22 17:00 Pulse Ox 100 04/06/22 17:00 O2 Del Method 04/06/22 17:00 Weight last 48 hrs Weight 107.955 kg Physical Exam Narrative: 56-year-old male Currently eating dinner No active chest pain Saturating on room air Nonfocal neuro exam Bilateral extremity 1+ edema Abdomen soft Surgical scar noted Currently hypotensive Blood pressure 140/112 No active chest pain Nonfocal neuro exam EOMI, PERRLA Systolic murmur appreciated Data : 04/06/22 13:10 04/06/22 13:10 A&P Assessment and plan (1) Hypertensive emergency: Status: Acute (2) Chest pain: Status: Acute (3) H/O esophagectomy: Status: Acute (4) Atrial fibrillation: Status: Acute (5) Nausea: Status: Acute (6) Hx of esophageal malignancy: Status: Acute (7) VAHE (obstructive sleep apnea): Status: Acute (8) Pulmonary hypertension: Status: Acute (9) Concentric left ventricular hypertrophy: Status: Acute (10) Iron deficiency anemia: Status: Acute (11) Right heart failure due to pulmonary hypertension: Status: Acute Plan Hypertensive emergency No active signs of endorgan damage however mild leakage of troponin noted EKG showing chronic changes No active chest pain or shortness of breath Considering resistant hypertension and requiring more than 3 antiplatelet regimen including Lasix he will need secondary hypertension work-up I will request drug screen, TSH, renal Doppler, echo, He might benefit from 24-hour urine VMA study For now I will add Cardene drip Add labetalol Target blood pressure reduction 15% of his MAP, goal in next 6-hour blood pressure target 130 -140/90mmhg Discontinue metoprolol and add labetalol Might need nephro consultation outpatient Diastolic CHF exacerbation No acute decompensation I will continue Lasix for hypertensive emergency History of sleep apnea, CPAP was denied by the company History of cor pulmonale Atrial flutter without RVR Continue Coumadin Esophageal cancer history Status post surgery Tolerates regular diet Full code Cardiac diet n.p.o. after midnight DVT prophylaxis Lovenox Attestations Medical Necessity Statement*: Anticipating discharge within 48 hours if blood pressure is better Time Spent in Patient Care: 45 Coding Level of Care Code Acute Countersinker Balance Screw Hole for Chg Fwd Diagnoses Hypertensive emergency I16.1 Chest pain R07.9 H/O esophagectomy Z98.890; Z90.49 Atrial fibrillation I48.91 Nausea R11.0 Hx of esophageal malignancy Z85.01 VAHE (obstructive sleep apnea) G47.33 Pulmonary hypertension I27.20 Concentric left ventricular hypertrophy I51.7 Iron deficiency anemia D50.9 Right heart failure due to pulmonary hypertension I27.29; I50.810
--- NOTE | 2022-04-06 18:06 | ECG_ITS ---
[facility] Test Date: 2022-04-06 Pat Name: Ty Mejia Department: Room: Gender: Male Club Attendant: : 1965 Requested By: Sesar Harp Order Number: [id number] Live MD: Guerline Worley M.D. Measurements Intervals [place] Rate: 70 P: [place]: QRS: 1 QRSD: 97 T: 78 QT: 430 QTc: 465 Interpretive Statements ATRIAL FIBRILLATION NONSPECIFIC T-WAVE ABNORMALITY ABNORMAL RHYTHM ECG Compared to ECG 04/06/2022 12:36:32 No significant changes Electronically Signed On 04-07-2022 15:50:43 CDT by Guerline Worley M.D. [id number]
[2022-04-06 19:08] LABS: Troponin 5 6HR 39.52 ng/L (0-15)
[2022-04-06 19:09] LABS: Troponin 5 6HR Delta 4.52 ng/L (0-12)
--- NOTE | 2022-04-06 19:36 | PC.NURSE ---
Attempted to call CSU to give report, Mali Yee advised that per Ampoule Filler, Padmini, we will hold this patient in the ED until 2100 when another nurse comes in to assist Medsurg and CSU floor. Poppy PERESU will take this patient at 2100, I advised I will call back for report
--- NOTE | 2022-04-06 21:07 | PC.NURSE ---
gave report to U Stephanie
--- NOTE | 2022-04-06 21:15 | USCV_ITS ---
Ty Mejia Age: 56 Gender: M : 1965 Exam Date: 04/07/2022 01:27 Ordering Phys: Penelope Dobbs MD Technologist: CRISTIAN Exam Location: [facility] Indication: HTN . No history of cardiac intervention per patient BP: 117 / 73 HR: 70 Rhythm: Atrial fibrillation Technical Quality: Adequate MEASUREMENTS (Male / Female) Normal Values 2D ECHO LV Diastolic Diameter PLAX 4.5 cm 4.2 - 5.9 / 3.9 - 5.3 cm LV Systolic Diameter PLAX 3.0 cm IVS Diastolic Thickness 1.8 cm 0.6 - 1.0 / 0.6 - 0.9 cm IVS Systolic Thickness 2.1 cm LVPW Diastolic Thickness 1.8 cm 0.6 - 1.0 / 0.6 - 0.9 cm LVPW Systolic Thickness 1.8 cm LVOT Diameter 2.1 cm LV Ejection Fraction 2D Teich 61.4 % LV Ejection Fraction MOD 2C 64.2 % LV Ejection Fraction 2C AL 65.2 % LA Diameter 5.8 cm LA Width 5.3 cm LA Height 7.3 cm RA Width 4.3 cm RA Height 5.8 cm Aorta at Sinotubular Diameter 2.6 cm IVC Diameter 2.4 cm M-MODE Aortic Annulus Diameter 3.1 cm LA Ao Ratio MM 1.9 MV E Point Septal Separation 0.3 cm DOPPLER AV Peak Velocity 134.0 cm/s LVOT Peak Velocity 98.0 cm/s AV Area Cont Eq vti 2.6 cm squared AV Area Cont Eq pk 2.6 cm squared MV Area PHT 4.5 cm squared MV E' Velocity 57.5 cm/s Mitral E to MV E' Ratio 12.3 Mitral E to LV E' Lateral Ratio 11.2 Mitral E to LV E' Septal Ratio 13.6 TR Peak Velocity 224.7 cm/s TR Peak Gradient 20.2 mmHg TV Peak E Velocity 70.0 cm/s Right Atrial Pressure 10.0 mmHg Pulmonary Artery Systolic Pressu 30.2 mmHg PV Peak Velocity 113.0 cm/s RV Acceleration Time 0.1 s RV Ejection Time 0.3 s RV AcT/ET 0.2 FINDINGS Left Ventricle Normal left ventricular size and systolic function, EF 60 %. No gross wall motion normalities Right Ventricle The right ventricle is normal in size and function. Right Atrium Mildly increased right atrial size. Left Atrium Moderately increased left atrial size. Mitral Valve Mild mitral valve regurgitation. Aortic Valve Trace aortic valve regurgitation. Tricuspid Valve Trace tricuspid valve regurgitation. Estimated pulmonary artery peak systolic pressure of 30 mmHg Pulmonic Valve Trace pulmonary valve regurgitation. Pericardium Normal pericardium without effusion. Aorta Normal ascending aorta dimension. IVC Dilated IVC with normal respiratory variation. CONCLUSIONS Normal left ventricular size and systolic function, EF 60 %. No gross wall motion normalities. Moderately increased left atrial size. Mildly increased right atrial size. Trace aortic valve regurgitation. Trace tricuspid valve regurgitation. Estimated pulmonary artery peak systolic pressure of 30 mmHg. Mild mitral valve regurgitation. There is no pericardial effusion. There are no intracardiac masses. Compared to the study from 09/30/2020, the PA pressure appears to be in the normal range. However because of the poor Doppler signal, this could be an underestimation Dr Guerline Worley MD FACC (Electronically Signed) Final Date: 07 April 2022 06:52 S
[2022-04-06] MEDS: labetalol 200 mg Tablet PO (21:33)
[2022-04-06] MEDS: enoxaparin 40 mg/0.4 mL Syringe SUBCUT (21:33)
[2022-04-06 22:27] LABS: Cortisol Random 3.78 ug/dL (2.47-19.5)
[2022-04-06 22:31] LABS: Amphetamines Screen Urine Positive (Negative); Barbiturates Screen Urine Negative (Negative); Benzodiazepines Screen Urine Negative (Negative); Cocaine Screen Urine Negative (Negative); Opiate Screen Urine Negative (Negative); PCP Screen Urine Negative (Negative); THC Screen Urine Negative (Negative)
[2022-04-06 23:00] LABS: Potassium, Radom Urine 70 mmol/L; Urine Random Chloride 82 mmol/L; Urine Random Sodium 114 mmol/L
--- NOTE | 2022-04-06 23:15 | PC.NURSE ---
Spoke with regarding patients BPs improved after PO labetolol. Per hold off on Cardene gtt for now.
[2022-04-07] VITALS (46 sets, daily range): BP systolic 107–149; BP diastolic 59–94; PULSE 57–91; RESP 15–29; TEMP 36.6–36.7; O2SAT 85–99
--- NOTE | 2022-04-07 | ECG_ITS ---
[facility] Test Date: 2022-04-07 Pat Name: Ty Mejia Department: Room: 276 Gender: Male Geodetic Computator: : 1965 Requested By: Penelope Dobbs Order Number: [id number] Maria T MD: Mariela Martines M.D. Interpretive Statements NAME OF STUDY: LEXISCAN SESTAMIBI STRESS TEST INDICATION: Unstable angina PROCEDURE: At the baseline, the blood pressure was 156/96 mmHg with a heart rate of 66 bpm and oxygen saturation 97%. The electrocardiogram showed atrial fibrillation, normal axis. Poor anterior R wave progression. Nonspecific T wave changes. The Lexiscan was infused over a period of 20 seconds. A total of 0.4 milligrams of Lexiscan was infused. The stress phase was continued for a total of 5 minutes. Heart rate at the end of the stress phase was 83 bpm, oxygen saturation 97% with a blood pressure of 136/72 mmHg. The EKG at the peak infusion revealed atrial fibrillation with no significant ST-T wave changes. The study was terminated due to protocol completion. Sestamibi was injected 20 seconds after the Lexiscan infusion. Blood pressure at the end of the recovery phase was 149/94 mmHg, oxygen saturation 94% with a heart rate of 75 beats per minute. CONCLUSION: 1. No significant EKG changes with the LexiScan infusion 2. No LexiScan induced chest pain or cardiac arrhythmia. 3. Normal blood pressure and heart rate response. 4. Sestamibi/sestamibi perfusion scan pending; see separate report. Electronically Signed On 04-07-2022 13:43:47 CDT by Mariela Martines M.D. [id number]
[2022-04-07] MEDS: amlodipine 10 mg Tablet PO (05:28)
[2022-04-07] MEDS: FUROsemide 40 mg Tablet 80 MG PO (05:28)
[2022-04-07] MEDS: spironolactone 25 mg Tablet 100 MG PO (05:28)
[2022-04-07] MEDS: dilTIAZem ER (24HR) 180 mg Capsule PO (05:28)
[2022-04-07 05:29] LABS: Basophils % 0.4 %; Eosinophils # 0.1 10^3/uL (0.0-0.8); Eosinophils % 1.7 %; Hematocrit 38.2 % (42.0-52.0); Hemoglobin 11.1 g/dL (11.7-16.6); Lymphocytes # 1.6 10^3/uL (0.8-4.8); Lymphocytes % 23.2 %; Mean Corpuscular HGB Conc 29.1 g/dL (30.0-36.0); Mean Corpuscular Hemoglobin 24.8 pg (28.0-34.0); Mean Corpuscular Volume 85.5 fl (80-94); Mean Platelet Volume 9.8 fL (7.4-10.4); Monocytes # 0.6 10^3/uL (0.2-0.9); Monocytes % 8.2 %; Neutrophils # 4.54 10^3/uL (1.8-7.7); Neutrophils % 66.2 %; Nucleated Red Blood Cells % 0 %; Platelet Count 279 10^3/cmm (130-400); Red Blood Count 4.47 10^6/uL (4.1-5.3); Red Cell Distribution Width 16.4 % (12.1-15.1); White Blood Count 6.9 10^3/uL (4.0-10.0)
[2022-04-07] MEDS: aspirin 81 mg EC Tablet PO (05:31)
[2022-04-07 05:49] LABS: Alanine Aminotransferase 29 U/L (0-41); Albumin Level 3.3 g/dL (3.5-5.2); Alkaline Phosphatase 142 U/L (40-130); Anion Gap 11.6 (5-19); Aspartate Amino Transferase 18 U/L (0-40); Blood Urea Nitrogen 17 mg/dL (6-20); Calcium 8.6 mg/dL (8.5-10.5); Carbon Dioxide 27 mmol/L (22-29); Chloride 105 mmol/L (98-107); Globulin 2.7 g/dL (1.3-4.6); Glomerular Filtration Rate 48.8 mL/min (90-130); Glucose 95 mg/dL (65-115); Magnesium 2.2 mg/dL (1.7-2.3); Osmolality Calculated 289 mOsm/kg (285-295); Potassium 4.6 mmol/L (3.5-5.1); Sodium 139 mmol/L (136-145); Total Bilirubin 0.4 mg/dL (0.15-1.2)
--- NOTE | 2022-04-07 07:22 | PC.NURSE ---
for a stress test
[2022-04-07] MEDS: regadenoson 0.4 Mg/5 ml Syringe IVP (07:34)
[2022-04-07] MEDS: labetalol 200 mg Tablet PO (09:40)
--- NOTE | 2022-04-07 14:15 | P.PN_ITS ---
Subjective Subjective: Seen this AM. Patient positive for methamphetamine. BP has been stable overnight and this AM. HR going lower with labetalol. Mother present at bedside. Pt had stress test today. Will await results. He is asymptomatic at this time. Vitals/I&O/Wt Last Vital Signs Temp 97.8 F 04/07/22 11:22 Pulse 57 L 04/07/22 14:02 Resp 16 04/07/22 11:22 BP 117/77 04/07/22 14:02 Pulse Ox 94 04/07/22 11:22 O2 Del Method 04/07/22 11:22 04/06/22 04/07/22 04/07/22 22:59 06:59 14:59 Intake Total 240 / 240 Output Total 300 / 300 550 / 550 Balance -60 / -60 -550 / -550 Weight last 48 hrs Weight 107.955 kg Physical Exam Narrative: 56-year-old male Currently eating breakfast Saturating on room air Nonfocal neuro exam Bilateral extremity 1+ edema Abdomen soft Surgical scar noted Currently hypotensive Blood pressure 117/64, HR 60's No active chest pain Nonfocal neuro exam EOMI, PERRLA Systolic murmur appreciated Data : 04/07/22 05:14 04/07/22 05:14 A&P Assessment and plan (1) Hypertensive emergency: Status: Acute (2) Chest pain: Status: Acute (3) H/O esophagectomy: Status: Acute (4) Atrial fibrillation: Status: Acute (5) Nausea: Status: Acute (6) Hx of esophageal malignancy: Status: Acute (7) VAHE (obstructive sleep apnea): Status: Acute (8) Pulmonary hypertension: Status: Acute (9) Concentric left ventricular hypertrophy: Status: Acute (10) Iron deficiency anemia: Status: Acute (11) Right heart failure due to pulmonary hypertension: Status: Acute Plan #Positive for methamphetamine #Hypertensive emergency No active signs of endorgan damage however mild leakage of troponin noted EKG showing chronic changes No active chest pain or shortness of breath Considering resistant hypertension and requiring more than 3 antihypertensives regimen including Lasix he will need secondary hypertension work-up I will request drug screen, TSH, renal Doppler, echo,renin, aldosterone BP has been normal since admission. Will stop labetalol. He was positive for meth. Stress test complete today. Will await results. Renal ultrasound shows questionable proximal renal artery stenosis. CTA recommended. Will avoid CTA at this time. Cr 1.5. Patient will need referral to vascular surgery or IR as outpatient for further evaluation and management of possible renal artery stenosis. Will optimize patient's BP meds prior to discharge. Diastolic CHF exacerbation No acute decompensation I will continue Lasix for hypertensive emergency History of sleep apnea, CPAP was denied by the company History of cor pulmonale Atrial flutter without RVR Continue Coumadin Esophageal cancer history Status post surgery Tolerates regular diet Full code Cardiac diet n.p.o. after midnight DVT prophylaxis Lovenox Mother updated at bedside. Attestations Medical Necessity Statement*: Patient requires inpatient hospitalization for optimization of blood pressure medications. Need to await results of stress test. Coding Level of Care Code Acute Geospatial Program Management Officer for Chg Fwd Diagnoses Hypertensive emergency I16.1 Chest pain R07.9 H/O esophagectomy Z98.890; Z90.49 Atrial fibrillation I48.91 Nausea R11.0 Hx of esophageal malignancy Z85.01 VAHE (obstructive sleep apnea) G47.33 Pulmonary hypertension I27.20 Concentric left ventricular hypertrophy I51.7 Iron deficiency anemia D50.9 Right heart failure due to pulmonary hypertension I27.29; I50.810
[2022-04-07] MEDS: warfarin 6 mg Tablet 9 MG PO (14:59)
[2022-04-07] MEDS: labetalol 200 mg Tablet 100 MG PO (20:50)
--- NOTE | 2022-04-07 21:15 | NMCV_ITS ---
NM candace perf SPECT r/s* [id number] Ty Mejia Age: 56 Gender: M : 1965 Exam Date: 04/07/2022 21:15 Ordering Phys: Penelope Dobbs MD Technologist: CARMINE Meza Exam Location: [facility] Indications: CHEST PAIN STRESS TEST Please see separate stress test report in [facility] for full findings IMAGE PROTOCOL Rest/Stress 1 Lexiscan Day Radiopharmaceutical Dose (mCi) Administration Site Administered by Rest: Tc-99m 10.8 IV CARMINE [place] Sestamibi Stress:Tc-99m 32.8 IV CARMINE [place] Sestamibi Rest: 07-Apr-2022 60 Discovery 630 Stress: 07-Apr-2022 30 Discovery 630 0.4mg Lexiscan. Supine position only as patient was unable to lay prone. SPECT RESULTS Technical Quality: Excellent Raw Data Analysis: Normal Image Corrections: No attenuation or motion correction applied Summed Stress Score: 1 Summed Rest Score: 0 Summed Difference Score: 1 PERFUSION FINDINGS A small area of slightly decreased eccentric was noted in the mid anterolateral region. There seems to have some inconsistent reversibility in this area. FUNCTIONAL RESULTS (calculated via Gated SPECT) Stress Image LV EF (%): 36 Stress EDV (mL):198 TID: 1 Stress ESV (mL):126 FUNCTIONAL FINDINGS: Segmental wall motion analysis revealing diffuse hypokinesia of the left ventricle IMPRESSIONS 1. Myocardial perfusion imaging revealing small area of inconsistent reversible defect in the mid anterolateral region, possibly artifactual 2. Diminished LV ejection fraction of 36%. 3. LV wall motion analysis revealing diffuse hypokinesia of the left ventricle. 4. Moderately dilated LV cavity with an end-systolic volume of 126 ml The above features may suggest a nonischemic cardiomyopathy. Possibly no significant ischemia based on the above findings. Clinical correlation is recommended. No similar previous studies are available for comparison. Dr Guerline Worley MD FACC (Electronically Signed) Final Date: 07 April 2022 13:17 S
--- NOTE | 2022-04-07 21:15 | USCV_ITS ---
Ty Mejia Age: 56 Gender: M : 1965 Exam Date: 04/07/2022 06:15 Ordering Phys: Penelope Dobbs MD Technologist: Michael Villatoro [place] [facility] [place] emergency Aortic Velocity @ SMA (cm/s) 90.7 RIGHT KIDNEY LEFT KIDNEY Velocity (cm/s) Velocity (cm/s) Sys/Lopez Sys/Lopez Resistive Index Resistive Index 63.3 / 15.7 0.75 Proximal Renal Artery 65.0 / 17.9 0.72 58.4 / 14.9 0.74 Mid Renal Artery 75.5 / 20.2 0.73 56.9 / 15.7 0.73 Distal Renal Artery 71.8 / 26.2 0.64 62.6 / 17.1 0.73 Hilar 35.9 / 12.7 0.65 27.0 / 7.1 0.74 Upper Pole 18.0 / 8.4 0.53 33.8 / 10.0 0.71 Mid Pole 16.5 / 6.1 0.63 32.7 / 9.3 0.72 Lower Pole 19.1 / 13.4 0.33 0.70 Renal Aortic Ratio 0.83 Accleration Index (cm/sec2) 2132.0 Hilar 191.00 0 1235.0 Upper Pole 64.00 0 1277.0 Mid Pole 71.00 0 929.00 Lower Pole 81.00 110.5 Kidney Length (mm) 111.4 FINDINGS Comparison, none. Abnormal waveform left kidney with tardus parvus changes. No stenosis or elevation of velocity in either kidney. Ratios are normal and size of kidney also normal. CONCLUSIONS No renal artery stenosis identified but abnormal waveform left kidney may indicate a proximal artery stenosis. Consider follow up CTA renal arteries. Dr. Karen Nj DO (Electronically Signed) Final Date: 07 April 2022 08:28 S
[2022-04-08] VITALS (9 sets, daily range): BP systolic 118–133; BP diastolic 60–75; PULSE 56–75; RESP 12–18; TEMP 36.4–36.8; O2SAT 91–99
[2022-04-08] MEDS: amlodipine 10 mg Tablet PO (06:07)
[2022-04-08] MEDS: dilTIAZem ER (24HR) 120 mg Capsule PO (06:07)
[2022-04-08] MEDS: spironolactone 25 mg Tablet 100 MG PO (06:08)
[2022-04-08] MEDS: FUROsemide 40 mg Tablet 80 MG PO (06:08)
[2022-04-08] MEDS: aspirin 81 mg EC Tablet PO (06:08)
--- NOTE | 2022-04-08 13:39 | PM.DCS ---
Discharge Providers Date of Admission: 04/06/22 16:23 Date of Discharge: April 08, 2022 Attending Provider at Admission: Earlene Small MD Attending Provider at Discharge: Earlene Small MD Diagnoses at Discharge Discharge Diagnosis (1) Hypertensive emergency: Status: Acute (2) Chest pain: Status: Acute (3) H/O esophagectomy: Status: Acute (4) Atrial fibrillation: Status: Acute (5) Nausea: Status: Acute (6) Hx of esophageal malignancy: Status: Acute (7) VAHE (obstructive sleep apnea): Status: Acute (8) Pulmonary hypertension: Status: Acute (9) Concentric left ventricular hypertrophy: Status: Acute (10) Iron deficiency anemia: Status: Acute (11) Right heart failure due to pulmonary hypertension: Status: Acute Reason for Visit Reason for Visit: HBP Chest pains, SOB Brief History: Ty Mejia is a 56 year old male who is currently seeing Dr. Pal for his resistant hypertension currently on multiple antibiotic regimen with good control of his blood pressure no previous history of cardiac disease, MT, aortic dissection or renal artery disease presenting today with chief complaint of weakness, chest pain and hypertensive episode.? Patient is stating that for last few weeks he has been experiencing chest pain which he describes as pressure-like sensation which radiates towards his left arm and jaw and left side of his neck associated with some numbness of his left arm, his pain would last for few seconds especially at nighttime patient is stating that he has history of esophageal cancer that was operated on 2019 since then he cannot lay flat he does get some discomfort on laying flat, tolerates regular food his EF is 55% he was given diuretics for diastolic heart failure, also has history of atrial flutter, takes Coumadin he has not received his CPAP because of denial. In the ER he was diagnosed with hypertensive emergency, he was given labetalol, no active chest pain at the time my evaluation he is eating his dinner I requested secondary hypertension work-up Added Cardene drip along labetalol requested stress test in the morning EKG changes of chronic Sent nonsignificant delta of troponin BNP 2600 Requested drug screen TSH is normal Hospital Course Hospital Course Patient was admitted for hypertensive emergency with systolic blood pressure 220. He did receive Cardizem and labetalol in the ER. Patient is already on spironolactone, metoprolol, amlodipine at home. He has had a lot of trouble outpatient with his blood pressures and has been following up with cardiology. Secondary hypertension work-up was ordered including TSH, renal Doppler, echo, renin aldosterone, metanephrines. Renal Doppler did show abnormal waveform and CT was recommended however patient had an KACEY with creatinine 1.5 which is close to baseline but slightly elevated. CTA was not ordered and patient. Urine drug screen was also positive for methamphetamines. During hospital stay blood pressure has been very stable. Metoprolol was stopped. Cardizem was reduced from 1 80-1 20 as per recommendations from Dr. Martines. He was placed on labetalol 200 in the morning and 100 at nighttime. Patient also had a stress test which did not show showed reversible ischemic defect, there were presence of artifact however. Discussed stress test results with Dr. Martines who is patient's outpatient technician's helper. She will follow-up on his secondary hypertension work-up and if CTA renal artery is warranted after all lab work is back. She will refer to higher level of care if needed. She will follow-up with patient in clinic within 2 weeks of discharge. Also in the past patient has been advised to go for a sleep study which he never completed. I discussed all of the above with the patient and he is agreeable and demonstrates understanding. He will be discharged home in stable condition today. Patient was strongly advised to refrain from using methamphetamines. Patient to recheck BMP in 1 week. Physical Exam Narrative: 56-year-old male Normocephalic atraumatic, EOMI Clear to auscultation bilaterally no wheezes, rhonchi, saturating well on room air Abdomen soft nontender Normal S1-S2, 2/6 murmur Lower extremity edema Vitals stable normal Discharge Data Studies Completed and Pending Completed Studies During Hospitalization Category Date Time Status Sestamibi Stress Test Request Routine Exams 04/07/22 06:38 Completed XR chest 1V portable [id number] Stat Exams 04/06/22 12:57 Completed NM candace perf SPECT r/s* [id number] Routine Nuc Med 04/07/22 21:15 Completed CV renal doppler [id number] Routine Ultrasound 04/07/22 21:15 Completed CV. echo complete* [id number] Routine Ultrasound 04/06/22 21:15 Completed Pending at discharge Category Date Time Status Sestamibi Stress Test Request Routine Exams 04/06/22 21:15 Stop Req Aldosterone Routine Lab 04/07/22 10:05 Received Metanephrines, Frac LC/MS/MS Routine Lab 04/06/22 21:49 Received Osmolality Urine Routine Lab 04/06/22 21:20 Received Plasma Renin Activity LC/MS/MS Routine Lab 04/07/22 05:14 Received Radiology Impressions Chest X-Ray 04/06/22 12:57 IMPRESSION: 1. No acute cardiopulmonary finding. 2. Cardiac enlargement unchanged. 3. Chronic interstitial changes. Laboratory Results WBC 6.9 10^3/uL (4.0-10.0) 04/07/22 05:14 RBC 4.47 10^6/uL (4.1-5.3) 04/07/22 05:14 Hgb 11.1 g/dL (11.7-16.6) L 04/07/22 05:14 Hct 38.2 % (42.0-52.0) L 04/07/22 05:14 MCV 85.5 fl (80-94) 04/07/22 05:14 MCH 24.8 pg (28.0-34.0) L 04/07/22 05:14 MCHC 29.1 g/dL (30.0-36.0) L 04/07/22 05:14 RDW 16.4 % (12.1-15.1) H 04/07/22 05:14 Plt Count 279 10^3/cmm (130-400) 04/07/22 05:14 MPV 9.8 fL (7.4-10.4) 04/07/22 05:14 Neut % (Auto) 66.2 % 04/07/22 05:14 Lymph % (Auto) 23.2 % 04/07/22 05:14 [place] % (Auto) 8.2 % 04/07/22 05:14 Eos % (Auto) 1.7 % 04/07/22 05:14 Baso % (Auto) 0.4 % 04/07/22 05:14 Neut # (Auto) 4.54 10^3/uL (1.8-7.7) 04/07/22 05:14 Lymph # (Auto) 1.6 10^3/uL (0.8-4.8) 04/07/22 05:14 [place] # (Auto) 0.6 10^3/uL (0.2-0.9) 04/07/22 05:14 Eos # (Auto) 0.1 10^3/uL (0.0-0.8) 04/07/22 05:14 Baso # (Auto) 0.0 10^3/uL (0.0-0.1) 04/07/22 05:14 Nucleated RBC % (auto) 0 % 04/07/22 05:14 Nucleated RBCs # 0.0 /100WBC 04/07/22 05:14 PT 13.90 SECONDS (12.1-14.9) 04/06/22 13:10 INR 1.04 (0.8-1.2) 04/06/22 13:10 APTT 30.0 SECONDS (23.9-36.7) 04/06/22 13:10 D-Dimer 0.40 ug/mIFEU (0-0.59) 04/06/22 18:44 Sodium 139 mmol/L (136-145) 04/07/22 05:14 Potassium 4.6 mmol/L (3.5-5.1) 04/07/22 05:14 Chloride 105 mmol/L (98-107) 04/07/22 05:14 Carbon Dioxide 27 mmol/L (22-29) 04/07/22 05:14 Anion Gap 11.6 (5-19) 04/07/22 05:14 BUN 17 mg/dL (6-20) 04/07/22 05:14 Creatinine 1.5 mg/dL (0.7-1.2) H 04/07/22 05:14 GFR Calculation 48.8 mL/min (90-130) L 04/07/22 05:14 Glucose 95 mg/dL (65-115) 04/07/22 05:14 Estimat Average Glucose 120 04/06/22 13:10 Hemoglobin A1c 5.8 % (4.0-6.0) 04/06/22 13:10 Calculated Osmolality 289 mOsm/kg (285-295) 04/07/22 05:14 Calcium 8.6 mg/dL (8.5-10.5) 04/07/22 05:14 Magnesium 2.2 mg/dL (1.7-2.3) 04/07/22 05:14 Total Bilirubin 0.4 mg/dL (0.15-1.2) 04/07/22 05:14 AST 18 U/L (0-40) 04/07/22 05:14 ALT 29 U/L (0-41) 04/07/22 05:14 Alkaline Phosphatase 142 U/L (40-130) H 04/07/22 05:14 Troponin T Baseline 35 ng/L (0-15) H 04/06/22 13:10 Troponin T 120 Minute 26.92 ng/L (0-15) H 04/06/22 15:14 Delta Troponin T -8.08 ABS# (0-10) L 04/06/22 15:14 Troponin T Hi Sens 6Hr 39.52 ng/L (0-15) H 04/06/22 18:44 Troponin T Hi Sens 6Hr Delta 4.52 ng/L (0-12) 04/06/22 18:44 NT-Pro-B Natriuret Pep 2530 pg/mL (0-125) H 04/06/22 13:10 NT-Pro-B Natriuret Pep 2623 pg/mL (0-125) H 04/06/22 13:10 Total Protein 6.0 g/dL (6.6-8.7) L 04/07/22 05:14 Albumin 3.3 g/dL (3.5-5.2) L 04/07/22 05:14 Globulin 2.7 g/dL (1.3-4.6) 04/07/22 05:14 Triglycerides 52 mg/dL (0-150) 04/06/22 13:10 Cholesterol 152 mg/dL (0-200) 04/06/22 13:10 LDL Cholesterol, Calc 103 mg/dL (50-129) 04/06/22 13:10 HDL Cholesterol 39 mg/dL (60-100) L 04/06/22 13:10 LDL/HDL Ratio 2.64 RATIO (0.00-3.22) 04/06/22 13:10 Cholesterol/HDL Ratio 3.90 mg/dL (1.0-5.00) 04/06/22 13:10 TSH 1.76 uIU/mL (0.27-4.20) 04/06/22 13:10 Random Cortisol 7.80 ug/dL (2.47-19.5) 04/08/22 05:09 Ur Random Sodium 114 mmol/L 04/06/22 21:20 Ur Random Potassium 70 mmol/L 04/06/22 21:20 Ur Random Chloride 82 mmol/L 04/06/22 21:20 Urine Opiates Screen Negative ng/mL (Negative) 04/06/22 21:20 Ur Barbiturates Screen Negative ng/mL (Negative) 04/06/22 21:20 Ur Phencyclidine Scrn Negative ng/mL (Negative) 04/06/22 21:20 Ur Amphetamines Screen Positive ng/mL (Negative) H 04/06/22 21:20 U Benzodiazepines Scrn Negative ng/mL (Negative) 04/06/22 21:20 Urine Cocaine Screen Negative ng/mL (Negative) 04/06/22 21:20 U Marijuana (THC) Screen Negative ng/mL (Negative) 04/06/22 21:20 Vitals Last Vital Signs Temp 97.7 F 04/08/22 11:23 Pulse 65 04/08/22 11:23 Resp 15 04/08/22 11:23 BP 119/75 04/08/22 11:23 Pulse Ox 94 04/08/22 11:23 O2 Del Method 04/08/22 11:23 Discharge Plan Discharge Patient Disposition: Home Condition: Stable Prescriptions: New diltiazem HCl 120 mg Capsule,Extended Release 24hr 120 mg PO QAM 30 Days Qty: 30 0RF labetalol 200 mg tablet See Rx Instructions .ROUTE .COMPLEX 30 Days Qty: 30 0RF Rx Instructions: 200 mg in AM and 100 mg at bedtime Continued metoclopramide HCl [Reglan] 10 mg tablet 10 mg PO TIDWMEAL PRN (Reason: stomach upset) Qty: 90 1RF Rx Instructions: take before eating Protonix 40 mg tablet,delayed release (DR/EC) 40 mg PO BID PRN (Reason: throat burning) Qty: 30 3RF ketotifen fumarate [Allergy Eye (ketotifen)] 0.025 % (0.035 %) drops 1 drp ophthalmic (eye) BID PRN (Reason: allergy symptoms) Qty: 5 1RF Rx Instructions: administer at least 8 hours apart furosemide 80 mg tablet 80 mg PO QAM amlodipine 10 mg tablet 10 mg PO QAM Tums 200 mg calcium (500 mg) Tablet,Chewable 200 mg PO QID PRN (Reason: Indigestion) Mylanta 200-200-20 mg/5 mL Suspension 15 ml PO TID aspirin 81 mg tablet,delayed release (DR/EC) 81 mg PO QAM warfarin 6 mg tablet See Rx Instructions .ROUTE .COMPLEX Protocol: Dose Management Condition: Sunday Dose/Route: 6 mg Instruction: 1 x 6 mg tablet Condition: Sunday Dose/Route: 9 mg Instruction: 1.5 x 6 mg tablets Condition: Sunday Dose/Route: 6 mg Instruction: 1 x 6 mg tablet Condition: Sunday Dose/Route: 9 mg Instruction: 1.5 x 6 mg tablets Condition: Dose/Route: 6 mg Instruction: 1 x 6 mg tablet Condition: Sunday Dose/Route: 9 mg Instruction: 1.5 x 6 mg tablets Condition: Sunday Dose/Route: 6 mg Instruction: 1 x 6 mg tablet Protocol Text: Adjustment Start Date: Sunday03/17/22 INR Value: 13.70 SECONDS INR Date: 03/02/22 Recheck Date: 03/24/22 Rx Instructions: 6MG PO DAILY ON SUN,, AND SUN AND 9MG PO DAILY ON SUN,SUN, AND SUN loratadine 10 mg tablet 10 mg PO QAM spironolactone 50 mg tablet 100 mg PO QAM Discontinued acetaminophen [Tylenol Extra Strength] 500 mg Tablet 1,000 - 1,500 mg PO Q6H PRN (Reason: Pain) Cardizem CD 180 mg capsule,extended release 24hr 180 mg PO QAM metoprolol tartrate 100 mg tablet See Rx Instructions .ROUTE .COMPLEX Rx Instructions: 150MG PO QAM AND 100MG PO QPM Discharge Orders: Discharge Order (Routine); Ordered 04/08/22 Ordered By: Earlene Small Other Ambulatory Orders: Basic Metabolic Panel (Routine) Timeframe: 1 Week Facility: [facility] - Location: Lab - Main Lab Ordered By: Earlene Small Referrals: Xiao Kaminski FNP [Nurse Practitioner] - 2 weeks Mariela Martines MD [Physician] - 1 month Discharge Diet: Cardiac and Low Salt Discharge Activity: Resume usual activity Patient Instructions: Opioid Safety Activity Restrictions/Additional Instructions: Please refrain from using methamphetamine Please use medications as directed ? Please pay close attention to medications that have been stopped and dose adjustments that have been made. ? Please follow-up with your primary care doctor within 4 to 7 days of discharge and with telemetry cardiology clinic within 2 weeks. We have ordered work-up for causes of your high blood pressure. Those labs will take a few days to get back. I have discussed with your technician's helper and she will follow-up those labs with you. Please recheck your blood work within a week of discharge. Prescription provided to you. Discharge Attestations Time Spent in Discharge Care*: greater than 30 min Status at Discharge: Cognitive status at discharge: cognitively intact, Behavioral status at discharge: cooperative, Quality Metrics Clinical Quality Measures [ No reported AMI, CVA or VTE this stay] Coding Level of Care Code Acute [facility] FW [place] note Diagnoses Hypertensive emergency I16.1 Chest pain R07.9 H/O esophagectomy Z98.890; Z90.49 Atrial fibrillation I48.91 Nausea R11.0 Hx of esophageal malignancy Z85.01 VAHE (obstructive sleep apnea) G47.33 Pulmonary hypertension I27.20 Concentric left ventricular hypertrophy I51.7 Iron deficiency anemia D50.9 Right heart failure due to pulmonary hypertension I27.29; I50.810
--- NOTE | 2022-04-08 15:08 | PC.NURSE ---
discharge instructions given and explained.pt verb understanding of instructions.will take afternoon meds when he gets home.discharged via w/c to exit.relative to drive pt home.
[2022-04-11 23:18] LABS: Plasma Renin Activity LC/MS/MS 0.75 ng/mL/h (0.25-5.82)
[2022-04-12 09:18] LABS: Osmolality Urine 682 mOsm/kg (50-1200)
[2022-04-12 15:08] LABS: Metanephrine Total Free 133 pg/mL (<=205)
== END 2022-04-08 15:09 | disposition home or self-care (01) ==
LOC: ER 16:15 → MEDSURG 18:43
PROVIDERS: Internal Medicine; Admitting Provider Internal Medicine; Emergency Provider Emergency Medicine; Visit Provider Internal Medicine
DX: I16.0 Hypertensive urgency (principal); R06.00 Dyspnea, unspecified; R07.89 Other chest pain; R11.0 Nausea; I11.0 Hypertensive heart disease with heart failure; I50.30 Unspecified diastolic (congestive) heart failure; I48.91 Unspecified atrial fibrillation; K21.9 Gastro-esophageal reflux disease without esophagitis; I50.810 Right heart failure, unspecified; I27.20 Pulmonary hypertension, unspecified; I34.0 Nonrheumatic mitral (valve) insufficiency; F15.90 Other stimulant use, unspecified, uncomplicated; G47.33 Obstructive sleep apnea (adult) (pediatric); D50.9 Iron deficiency anemia, unspecified; Z79.01 Long term (current) use of anticoagulants; Z79.82 Long term (current) use of aspirin; Z85.01 Personal history of malignant neoplasm of esophagus; Z88.0 Allergy status to penicillin
CPT/HCPCS: 36415; 71045; 78452; 80053; 80061; 80306; 82088; 82436; 82533; 83036; 83735; 83835; 83880; 83935; 84133; 84244; 84300; 84443; 84484; 85025; 85378; 85610; 85730; 93005; 93017; 93306; 93975; 94664; 96372; 96374; 96375; 99285; A9500; G0378; J1644; J1650; J2785; J3490

== ENCOUNTER 2022-04-18 08:39 | Outpatient (CLI) | payer MEDICAID, SELFPAY ==
[2022-04-18 09:25] LABS: Anion Gap 12.3 (5-19); Blood Urea Nitrogen 27 mg/dL (6-20); Calcium 9.8 mg/dL (8.5-10.5); Carbon Dioxide 26 mmol/L (22-29); Chloride 103 mmol/L (98-107); Glomerular Filtration Rate 52.8 mL/min (90-130); Glucose 87 mg/dL (65-115); Osmolality Calculated 288 mOsm/kg (285-295); Potassium 4.3 mmol/L (3.5-5.1); Sodium 137 mmol/L (136-145)
== END 2022-04-18 08:40 | disposition home or self-care (01) ==
LOC: LAB 08:42
PROVIDERS: PCP Family Medicine; Visit Provider Internal Medicine
DX: N17.9 Acute kidney failure, unspecified (principal)
CPT/HCPCS: 36415; 80048; 85610

== ENCOUNTER 2022-05-11 07:04 | Day surgery (SDC) | payer MEDICAID, SELFPAY ==
[2022-05-09 14:29] VITALS: BMI 30.9
[2022-05-11 07:42] VITALS: BP 126/83; PULSE 82; RESP 18; TEMP 36.1; O2SAT 100
[2022-05-11] MEDS: sodium chloride 0.9% 1,000 ML 30 ML IV (07:52)
--- NOTE | 2022-05-11 08:14 | W.PM.OPSFHP ---
Same Day Surgery H&P Indication for Procedure/HPI DATE OF PROCEDURE: May 11, 2022 CHIEF COMPLAINT/INDICATIONFOR SURGICAL PROCEDURE: Difficulty in swallowing PREOP DIAGNOSIS: Dysphagia PLANNED PROCEDURE: Operation Date: 05/11/22 08:45 Proposed Procedures p EGD 29554,Z85.01(Not Applicable) - Francisco Gregory MD 03/20/2022 This is a pleasant 56 y male patient with hx of esophagectomy with gastric pull up for esophageal cancer.referred? to my practice fro dysphagia and pain.had a distal oesophgeal polyp and pathology showed ; Gastroesophageal junction, esophageal polyp , polypectomy: ?Benign hyperplastic polyp (GE junction polyp). ?Fragments of squamocolumnar mucosa with reflux esophagitis. ?No evidence of intestinal metaplasia or Bethea's esophagitis. ?No evidence of malignancy. 05/11/2022 Patient comes today for diagnostic EGD with possible balloon dilation, unfortunately patient did not get the upper GI study yet, scheduled to have it on May 22, I did discuss with the patient and he prefers to go with the EGD instead of waiting on the upper GI study ROS All systems have been reviewed negative except as for the above or per problem list. Medications/Allergies* Home Medications Medication Instructions Recorded Confirmed Type aluminum-mag hydroxide-simethicone 15 ml PO TID 04/06/22 05/11/22 History 200 mg-200 mg-20 mg/5 mL oral susp amlodipine 10 mg tablet 10 mg PO QAM 04/06/22 05/11/22 History aspirin 81 mg tablet,delayed 81 mg PO QAM 04/06/22 05/11/22 History release calcium carbonate 200 mg calcium 200 mg PO QID PRN Indigestion 04/06/22 05/11/22 History (500 mg) chewable tablet (Tums) loratadine 10 mg tablet 10 mg PO QAM 04/06/22 05/11/22 History spironolactone 50 mg tablet 100 mg PO QAM High blood pressure 04/06/22 05/11/22 History & CHF Allergies/Adverse Reactions Allergy/AdvReac Type Severity Reaction Status Date / Time Penicillins Allergy Unknown Verified 05/11/22 08:28 Current Medications: Generic Name Dose Route Start Last Admin Trade Name Freq PRN Reason Stop Dose Admin Sodium Chloride 1,000 mls @ 30 mls/hr 05/11/22 07:15 05/11/22 07:52 Sodium Chloride 0.9% IV 05/12/22 07:14 30 mls/hr .Q24H PHILOMENA Administration Pertinent History/Comorbid Conditions* Medical History (Updated 04/09/22 @ 09:52 by Gus Yu DO) Allergic rhinitis due to allergen Colon polyps Dental caries associated with enamel hypomineralization Esophagitis GERD (gastroesophageal reflux disease) Hx of esophageal malignancy Hypertension VAHE (obstructive sleep apnea) Pulmonary hypertension Surgical History (Updated 03/23/22 @ 17:17 by Francisco Gregory MD) H/O esophagectomy H/O esophagogastroduodenoscopy (04/28/21) Distal esophageal polyp and grade C esophagitis History of orchiectomy Status post colonoscopy (04/28/21) Family History (Updated 09/29/20 @ 19:31 by Penelope Dobbs MD) Hypertension Father Social History Smoking and tobacco status: never smoked Alcohol intake: never Housing: House Pertinent Exam Findings alert, oriented x 3, regular rate & rhythm and procedure specific exam findings (Abdominal exam nontender nondistended soft) Recommendations Surgery/Procedure today (Diagnostic EGD with possible biopsy possible dilation) Coding Level of Care Code Acute Merchandising Team Lead for Chg Fwd
--- NOTE | 2022-05-11 09:09 | P.ANESASSM_ITS ---
Pre-Anesthetic Assessment Height/Weight: Height 1.85 m Weight 106.141 kg Temp Pulse Resp BP Pulse Ox O2 Del Method 97.0 F L 82 18 126/83 100 05/11/22 07:42 05/11/22 07:42 05/11/22 07:42 05/11/22 07:42 05/11/22 07:42 05/11/22 07:42 Preop Diagnosis: Dysphagia Operation Date: 05/11/22 08:45 Proposed Procedures p EGD [id number],Z85.01(Not Applicable) - Francisco Gregory MD Familial anesthetic complications: none Was Beta Nga taken within 24 hours: Yes Was Clonidine taken within 24 hours: N/A Last intake: Intake Last Liquid Date 05/10/22 Last Liquid Time 22:30 Last Solid Date 05/10/22 Last Solid Time 18:30 Social No alcohol and No tobacco (Chews tobacco, but none this morning) Exam alert, oriented x 3, clear to auscultation bilaterally and regular rate & rhythm Airway Dentition: chipped (Several missing teeth; poor dentition) History/ROS No significant history except as noted and No significant complaints Pulmonary Cough (From allergies), Sleep Apnea (Uses CPAP sporadically, does not currently have a CPAP) and Shortness of Breath (With activity) CV/HEM Atrial Fibrillation, Stable Angina (Patient states he has chest pain daily, but this is not a new occurance. Saw dietetic assistant 2 weeks and no new changes), Arrythmia (a fib), Coronary Artery Disease, Congestive Heart Failure, Hypertension and Myocardial Infarction Chronic Renal Insufficiency Hepatic None reported GI Gastroesophageal Reflux Disease (Controlled with medications) Metabolic None reported Musc/skel Fibromyalgia and Lower Back Pain Neuropsych Anxiety, Depression and Neuropathy Anesthetic Plan ASA status: 4 Anesthesia: Anesthesia Evaluation, General and MAC Risk of > 500 ml blood loss (7ml/kg in children): No Medications/Allergies Home Medications Medication Instructions Recorded Confirmed Last Taken Type pantoprazole 40 mg tablet,delayed 40 mg PO BID PRN throat burning 02/24/22 05/11/22 05/10/22 Rx release (Protonix) #30 tabs ketotifen fumarate 0.025 % (0.035 1 drp ophthalmic (eye) BID PRN 03/16/22 05/11/22 Unknown Rx %) eye drops (Allergy Eye allergy symptoms #5 mL (ketotifen)) aluminum-mag hydroxide-simethicone 15 ml PO TID 04/06/22 05/11/22 Unknown History 200 mg-200 mg-20 mg/5 mL oral susp amlodipine 10 mg tablet 10 mg PO QAM 04/06/22 05/11/22 05/11/22 History aspirin 81 mg tablet,delayed 81 mg PO QAM 04/06/22 05/11/22 05/06/22 History release calcium carbonate 200 mg calcium 200 mg PO QID PRN Indigestion 04/06/22 05/11/22 05/10/22 History (500 mg) chewable tablet (Tums) loratadine 10 mg tablet 10 mg PO QAM 04/06/22 05/11/22 05/10/22 History spironolactone 50 mg tablet 100 mg PO QAM High blood pressure 04/06/22 05/11/22 05/10/22 History & CHF labetalol 100 mg tablet 100 mg PO BID #180 tabs 04/18/22 05/09/22 05/11/22 Rx furosemide 80 mg tablet See Rx Instructions .Route 04/21/22 05/11/22 05/11/22 Rx .COMPLEX #30 tabs warfarin 6 mg tablet See Rx Instructions .Route 04/24/22 05/09/22 05/06/22 Rx .COMPLEX #135 tabs metoclopramide HCl 10 mg tablet See Rx Instructions .Route 04/26/22 05/11/22 05/10/22 Rx .COMPLEX #75 tabs sucralfate 1 gram tablet (Carafate) 1 g PO TID 12 weeks #252 tabs 05/11/22 Unknown Rx Allergies Allergy/AdvReac Type Severity Reaction Status Date / Time Penicillins Allergy Unknown Verified 05/11/22 08:28 Current Medications Generic Name Dose Route Start Last Admin Trade Name Freq PRN Reason Stop Dose Admin Sodium Chloride 1,000 mls @ 30 mls/hr 05/11/22 07:15 05/11/22 07:52 Sodium Chloride 0.9% IV 05/12/22 07:14 30 mls/hr .Q24H PHILOMENA Administration PFSH Anesthesia Medical History Allergic rhinitis due to allergen Colon polyps Dental caries associated with enamel hypomineralization Esophagitis GERD (gastroesophageal reflux disease) Hx of esophageal malignancy Hypertension VAHE (obstructive sleep apnea) Pulmonary hypertension Surgical History H/O esophagectomy H/O esophagogastroduodenoscopy (04/28/21) Distal esophageal polyp and grade C esophagitis History of orchiectomy Status post colonoscopy (04/28/21) Family History Father Hypertension Social History Smoking and tobacco status: never smoked Alcohol intake: never Housing: House Data Anesthesia Cardiac Studies: Echocardiogram 04/06/22 Echocardiogram Ultrasound 09/30/20 Sestamibi Stress Test (Cardiology) 04/07 Holter Monitor 10/29/20
[2022-05-11 09:34] VITALS: BP 132/70; PULSE 83; RESP 12; TEMP 36.2; O2SAT 100
[2022-05-11 09:52] VITALS: BP 118/77; PULSE 79; RESP 16; O2SAT 100
--- NOTE | 2022-05-11 14:44 | ANE.PACU2 ---
Inpatient post-anesthesia follow up: Airway intact: Yes Vital signs: Temperature 97.2 F Pulse Rate 79 Respiratory Rate 16 Blood Pressure 118/77 Pulse Oximetry 100 Oxygen Delivery Me thod Room Air Oxygen Flow Rate Fraction of Inspir ed Oxygen Hydration adequate: Yes Nausea and vomiting: No Pain level: 1 Mental status: Baseline
== END 2022-05-11 10:08 | disposition home or self-care (01) ==
PROVIDERS: PCP Family Medicine; Visit Provider Surgery
PROC: 0DJ08ZZ Inspection of Upper Intestinal Tract, Via Natural or Artificial Opening Endoscopic (ICD-10-PCS; CPT 43235; principal; 2022-05-11 08:45)
DX: R13.10 Dysphagia, unspecified (principal); Z85.01 Personal history of malignant neoplasm of esophagus; G47.33 Obstructive sleep apnea (adult) (pediatric); F17.220 Nicotine dependence, chewing tobacco, uncomplicated; I48.91 Unspecified atrial fibrillation; I25.10 Atherosclerotic heart disease of native coronary artery without angina pectoris; I11.0 Hypertensive heart disease with heart failure; I50.9 Heart failure, unspecified; I25.2 Old myocardial infarction; K21.9 Gastro-esophageal reflux disease without esophagitis; M79.7 Fibromyalgia; F41.9 Anxiety disorder, unspecified; F32.A Depression, unspecified; Z79.01 Long term (current) use of anticoagulants
CPT/HCPCS: 43239; 88305; 88342; J2704; J7030

== ENCOUNTER 2022-05-22 10:13 | Outpatient (CLI) | payer MEDICAID, SELFPAY ==
--- NOTE | 2022-05-22 10:30 | FL_ITS ---
WS: [id number] Single CONTRAST UPPER GI EXAMINATION HISTORY: personal history of malignant neoplasm of esophagus COMPARISON: None available. FLUOROSCOPY TIME: 3min [id number] minutes. Patient swallowed the barium mixture with no difficulty. No significant stricture or area of dilatati on. There is some very minimal wall thickening in the mid esophagus which may be due to underdistenti on. No focal ulcerations persists. Marked cricopharyngeal spasm near C5. Barium mixture traversed nor ronnie throughout the esophagus. No filling defects within the stomach. Duodenal bulb was normally dis tensible and pliable. No gastroesophageal reflux No hiatal hernia was demonstrated on this exam. FL/FL upper GI series [id number] IMPRESSION: 1. Normal appearance of the esophagus and stomach. 2. No esophageal strictures. No mass identified.
--- NOTE | 2022-05-22 10:39 | FL_ITS ---
WS: [id number] Single CONTRAST UPPER GI EXAMINATION HISTORY: personal history of malignant neoplasm of esophagus COMPARISON: None available. FLUOROSCOPY TIME: 3min [id number] minutes. Patient swallowed the barium mixture with no difficulty. No significant stricture or area of dilatati on. There is some very minimal wall thickening in the mid esophagus which may be due to underdistenti on. No focal ulcerations persists. Marked cricopharyngeal spasm near C5. Barium mixture traversed nor ronnie throughout the esophagus. No filling defects within the stomach. Duodenal bulb was normally dis tensible and pliable. No gastroesophageal reflux No hiatal hernia was demonstrated on this exam.
== END 2022-05-22 10:14 | disposition home or self-care (01) ==
LOC: RAD 10:15
PROVIDERS: PCP Family Medicine; Visit Provider Surgery
DX: Z85.01 Personal history of malignant neoplasm of esophagus (principal)
CPT/HCPCS: 74240; 74246

== ENCOUNTER → 2022-06-08 15:18 | Outpatient (BNVA) | payer MEDICAID, SELFPAY | PROVIDERS: PCP Family Medicine; Visit Provider Internal Medicine Cardiovascular Disease | DX: I48.91 Unspecified atrial fibrillation (principal); I48.3 Typical atrial flutter; I10 Essential (primary) hypertension; I27.20 Pulmonary hypertension, unspecified; I51.7 Cardiomegaly; G47.33 Obstructive sleep apnea (adult) (pediatric) | CPT/HCPCS: 85610 ==

== ENCOUNTER → 2022-06-15 10:31 | Outpatient (BNVA) | payer MEDICAID, SELFPAY | PROVIDERS: PCP Family Medicine | DX: I48.91 Unspecified atrial fibrillation (principal) | CPT/HCPCS: 85610 ==

== ENCOUNTER → 2022-06-22 10:43 | Outpatient (BNVA) | payer MEDICAID, SELFPAY | PROVIDERS: PCP Family Medicine; Visit Provider Internal Medicine Cardiovascular Disease | DX: I48.92 Unspecified atrial flutter (principal); Z79.01 Long term (current) use of anticoagulants | CPT/HCPCS: 85610 ==

== ENCOUNTER → 2022-06-28 09:38 | Outpatient (BNVA) | payer MEDICAID, SELFPAY | PROVIDERS: PCP Family Medicine; Visit Provider Internal Medicine Cardiovascular Disease | DX: I48.91 Unspecified atrial fibrillation (principal); Z79.01 Long term (current) use of anticoagulants | CPT/HCPCS: 36415; 80053; 84443; 85610 ==

== ENCOUNTER → 2022-07-06 09:17 | Outpatient (BNVA) | payer MEDICAID, SELFPAY | PROVIDERS: PCP Family Medicine; Visit Provider Internal Medicine Cardiovascular Disease | DX: I48.91 Unspecified atrial fibrillation (principal); Z79.01 Long term (current) use of anticoagulants | CPT/HCPCS: 85610 ==

== ENCOUNTER → 2022-07-12 10:01 | Outpatient (BNVA) | payer MEDICAID, SELFPAY | PROVIDERS: PCP Family Medicine; Visit Provider Internal Medicine Cardiovascular Disease | DX: I48.91 Unspecified atrial fibrillation (principal); Z79.01 Long term (current) use of anticoagulants | CPT/HCPCS: 85610 ==

== ENCOUNTER → 2022-07-19 08:57 | Outpatient (BNVA) | payer MEDICAID, SELFPAY | PROVIDERS: PCP Family Medicine; Visit Provider Internal Medicine Cardiovascular Disease | DX: I48.91 Unspecified atrial fibrillation (principal); Z79.01 Long term (current) use of anticoagulants | CPT/HCPCS: 36415; 85610 ==

== ENCOUNTER → 2022-07-26 09:20 | Outpatient (BNVA) | payer MEDICAID, SELFPAY | PROVIDERS: PCP Family Medicine; Visit Provider Internal Medicine Cardiovascular Disease | DX: I48.91 Unspecified atrial fibrillation (principal); Z79.01 Long term (current) use of anticoagulants; I48.92 Unspecified atrial flutter; I48.3 Typical atrial flutter | CPT/HCPCS: 85610 ==

== ENCOUNTER 2022-08-23 08:46 | Outpatient (CLI) | payer MEDICAID, SELFPAY ==
--- NOTE | 2022-08-23 09:30 | CT_ITS ---
WS: [id number] CT ANGIOGRAPHY abdomen and pelvis. HISTORY: Evaluate for renal artery stenosis. TECHNIQUE: CT angiogram is performed during IV injection. Reformation images reviewed. All CT scans a [email or web address] use at least one of these dose optimization techniques: automated exposure contro l; mA and/or kV adjustment per patient size (includes targeted exams where dose is matched to clinica l indication); or iterative reconstruction. CONTRAST: Omnipaque 350; 95 mL IV. DLP: 946.20 mGy.cm COMPARISON: 06/27/2018 CT and prior renal artery Doppler 04/07/2022. Lung bases are clear. Small hiatal hernia. The distal esophagus is circumferentially thickened with n arrowing of the lumen. To the RIGHT of the distal esophagus is a hypoechoic nodule measuring 10 mm. T his may be a small lymph node. There are additional very small distal paraesophageal lymph nodes. Mil d cardiomegaly. Abdominal aorta: Normal caliber abdominal aorta. Well-opacified aorta. No aneurysm or significant ath erosclerotic plaque. Origins of the SMA and celiac axis are well-opacified with no thrombus. ELIZABETH is n ormal. RIGHT renal artery: Single main renal artery. Normal caliber. Normal renal enhancement. LEFT renal artery: Single main renal artery. Segmental area of stenosis in the proximal renal artery. Stenosis is irregular extending over length of 2.5 cm involving the proximal and mid renal artery. T here is still normal renal enhancement. Visualized liver and spleen are unremarkable on early enhancement. Normal portal vein. Gallbladder is contracted which may be due to a nonfasting state. Normal pancreas. Bilateral adrenal nodules are st able since 2018. Stomach is distended with fluid. No small bowel obstruction. Normal appendix. A few scattered sigmoid diverticula. Negative urinary bladder. No free fluid. Central mesenteric misting and a few small mes enteric lymph nodes. Lymph nodes are less than a centimeter. Additional RIGHT inguinal lymph node amy suring 15 mm. Supraumbilical fat-containing hernia. There is an additional wide mouth hernia at the level of the um bilicus containing fat only. No osteoblastic or osteolytic bone disease. There are a few scattered sclerotic foci within the bones of the pelvis which are unchanged since 2018. CT/CT angio abdomen pelvis [id number] IMPRESSION: 1. High-grade, greater than 80% stenosis, involving a segment of the proximal and mid LEFT renal artery. Corresponds to the recent renal ultrasound evaluati on. 2. There is still normal enhancement of the LEFT renal parenchyma. 3. No RIGHT renal artery stenosis. 4. Circumferential thickening and narrowing of the lumen involving the distal esophagus with adjacent very small lymph nodes. Consider evaluation for recurre nt esophageal neoplasm. 5. Mild mesenteric panniculitis with a few small central lymph nodes.
[2022-08-23] MEDS: iohexol 350 mg/mL 500 mL Btl (per mL) IV (10:44)
== END 2022-08-23 08:47 | disposition home or self-care (01) ==
LOC: RAD 08:48
PROVIDERS: PCP Family Medicine; Visit Provider Internal Medicine Cardiovascular Disease
DX: I70.1 Atherosclerosis of renal artery (principal)
CPT/HCPCS: 74174; 85610; Q9967

== ENCOUNTER → 2022-09-14 11:07 | Outpatient (BNVA) | payer MEDICAID, SELFPAY | PROVIDERS: PCP Family Medicine; Visit Provider Internal Medicine Cardiovascular Disease | DX: I48.91 Unspecified atrial fibrillation (principal); I48.21 Permanent atrial fibrillation | CPT/HCPCS: 85610 ==

== ENCOUNTER → 2022-09-21 11:22 | Outpatient (BNVA) | payer MEDICAID, SELFPAY | PROVIDERS: PCP Family Medicine; Visit Provider Internal Medicine Cardiovascular Disease | DX: I48.91 Unspecified atrial fibrillation (principal); I48.21 Permanent atrial fibrillation | CPT/HCPCS: 85610 ==

== ENCOUNTER → 2022-09-28 11:12 | Outpatient (BNVA) | payer MEDICAID, SELFPAY | PROVIDERS: PCP Family Medicine; Visit Provider Internal Medicine Cardiovascular Disease | DX: I48.91 Unspecified atrial fibrillation (principal); I48.21 Permanent atrial fibrillation | CPT/HCPCS: 85610 ==

== ENCOUNTER → 2022-10-05 11:09 | Outpatient (BNVA) | payer MEDICAID, SELFPAY | PROVIDERS: PCP Family Medicine; Visit Provider Internal Medicine Cardiovascular Disease | DX: I48.91 Unspecified atrial fibrillation (principal); I48.21 Permanent atrial fibrillation | CPT/HCPCS: 85610 ==

== ENCOUNTER 2022-10-30 10:49 | Outpatient (CLI) | payer MEDICAID, SELFPAY ==
[2022-10-30 12:55] LABS: Albumin Level 3.6 g/dL (3.5-5.2); Blood Urea Nitrogen 19 mg/dL (6-20); Calcium 9.9 mg/dL (8.5-10.5); Carbon Dioxide 25 mmol/L (22-29); Chloride 106 mmol/L (98-107); Glomerular Filtration Rate 45.1 mL/min (90-130); Glucose 89 mg/dL (65-115); Phosphorus 2.9 mg/dL (2.5-4.5); Sodium 139 mmol/L (136-145)
[2022-10-30 13:00] LABS: Anion Gap 12.5 (5-19); Potassium 4.5 mmol/L (3.5-5.1)
== END 2022-10-30 10:50 | disposition home or self-care (01) ==
LOC: LAB 10:57
PROVIDERS: PCP Family Medicine; Visit Provider Internal Medicine Nephrology
DX: N18.9 Chronic kidney disease, unspecified (principal)
CPT/HCPCS: 36415; 80069; 85610

== ENCOUNTER → 2022-11-06 11:14 | Outpatient (BNVA) | payer MEDICAID, SELFPAY | PROVIDERS: PCP Family Medicine; Visit Provider Internal Medicine Cardiovascular Disease | DX: I48.91 Unspecified atrial fibrillation (principal); I48.21 Permanent atrial fibrillation | CPT/HCPCS: 85610 ==

== ENCOUNTER → 2022-11-13 10:52 | Outpatient (BNVA) | payer MEDICAID, SELFPAY | PROVIDERS: PCP Family Medicine; Visit Provider Internal Medicine Cardiovascular Disease | DX: I48.21 Permanent atrial fibrillation (principal) | CPT/HCPCS: 85610 ==

== ENCOUNTER → 2022-11-27 09:33 | Outpatient (BNVA) | payer MEDICAID, SELFPAY | PROVIDERS: PCP Family Medicine; Visit Provider Internal Medicine Cardiovascular Disease | DX: I48.91 Unspecified atrial fibrillation (principal) | CPT/HCPCS: 85610 ==

== ENCOUNTER 2022-12-18 09:36 | Outpatient (CLI) | payer MEDICAID, SELFPAY ==
[2022-12-18 11:03] LABS: Albumin Level 3.2 g/dL (3.5-5.2); Anion Gap 9.8 (5-19); Blood Urea Nitrogen 19 mg/dL (6-20); Carbon Dioxide 28 mmol/L (22-29); Chloride 105 mmol/L (98-107); Glucose 105 mg/dL (65-115); Phosphorus 3.3 mg/dL (2.5-4.5); Potassium 3.8 mmol/L (3.5-5.1); Sodium 139 mmol/L (136-145)
[2022-12-18 11:05] LABS: Urine Appearance Clear (CLEAR); Urine Color Straw (Yellow); pH Urine 6 (5-7)
[2022-12-18 11:06] LABS: Bilirubin Urine Neg (Negative); Blood Urine Neg (Negative); Glucose Urine UA Norm (Normal); Ketones Urine Negative (Negative); Leukocyte Esterase Urine Trace (Negative); Nitrate Urine Negative (Negative); Protein Urine 1+ (Negative); Squamous Epithelial Cell Urine 0-4 /hpf (0-5); Urobilinogen Urine Norm (Negative)
[2022-12-18 11:07] LABS: Add Urine Culture? No; Bacteria Urine 1+ /hpf; Coarse Granular Casts Urine 0-4 /lpf
[2022-12-18 11:13] LABS: Creatinine Urine, Random 123 mg/dL (39-259); Microalbumin Random Urine 15 ug/dL (0-20)
[2022-12-18 11:19] LABS: Microalbum Creatinine Ratio Ur 122 mg/dL (0-20)
== END 2022-12-18 09:37 | disposition home or self-care (01) ==
PROVIDERS: PCP Family Medicine; Visit Provider Internal Medicine Nephrology
DX: N18.9 Chronic kidney disease, unspecified (principal)
CPT/HCPCS: 80069; 81001; 82044; 85610

== ENCOUNTER 2022-12-20 15:39 | Observation (INO) | payer MEDICAID, SELFPAY ==
[2022-12-20] VITALS (8 sets, daily range): BP systolic 117–191; BP diastolic 73–102; PULSE 70–85; RESP 16–20; TEMP 36.6–36.9; O2SAT 94–100; BMI 36.5
[2022-12-20 16:32] LABS: Basophils % 0.2 %; Eosinophils # 0.2 10^3/uL (0.0-0.8); Eosinophils % 2.6 %; Lymphocytes # 1.2 10^3/uL (0.8-4.8); Lymphocytes % 19.3 %; Mean Corpuscular HGB Conc 26.4 g/dL (30.0-36.0); Mean Corpuscular Hemoglobin 19.9 pg (28.0-34.0); Mean Corpuscular Volume 75.1 fl (80-94); Mean Platelet Volume 9.5 fL (7.4-10.4); Monocytes # 0.4 10^3/uL (0.2-0.9); Monocytes % 6.8 %; Neutrophils % 70.8 %; Nucleated Red Blood Cells % 0 %; Platelet Count 303 10^3/cmm (130-400); Red Blood Count 2.77 10^6/uL (4.1-5.3); Red Cell Distribution Width 19.3 % (12.1-15.1); White Blood Count 6.1 10^3/uL (4.0-10.0)
[2022-12-20 16:35] LABS: Hematocrit 20.8 % (42.0-52.0); Hemoglobin 5.5 g/dL (11.7-16.6)
--- NOTE | 2022-12-20 16:46 | W.ED.RECABL ---
HPI - Recheck/Abnormal Lab/Rx General: Chief Complaint: Recheck/Abnormal Lab/Rx Stated Complaint: Sent in for abn labs Time Seen by Provider: 12/20/22 16:11 History of Present Illness: Patient presents to the ER with complaints of abnormal labs. He says hemoglobin is 5.5. Patient went to see his doctor in [place] today for lab work about what where he is losing blood at. He says he been working at this and cannot figure out where it is going. Patient has no obvious sources. Patient had blood work done and his doctor in [place] called him and told him he needs to come here for transfusion. Patient's only complaint at this time is tiredness and fatigue. MD complaint: abnormal lab Review of Systems General: Reports: 10 or more systems reviewed and unremarkable except in HPI and below Const: Denies: fever(s) or chills Eyes: Denies: change in vision or photophobia ENMT: Denies: throat pain or odynophagia Card: Denies: chest pain, palpitations or irregular heart rhythm Resp: Denies: dyspnea, productive cough or non-productive cough GI: Denies: abdominal pain, nausea or vomiting : Denies: flank pain, difficulty urinating or dysuria Musc: Denies: neck pain, back pain or extremity pain Skin/Breast: Denies: rash or pruritus Neuro: Denies: headache(s) or numbness in extremities Psych: Denies: anxiety PFSH ED PFSH: Medical History Allergic rhinitis due to allergen Colon polyps Dental caries associated with enamel hypomineralization Esophagitis GERD (gastroesophageal reflux disease) Hx of esophageal malignancy Hypertension VAHE (obstructive sleep apnea) Pulmonary hypertension Resistant hypertension Surgical History H/O esophagectomy H/O esophagogastroduodenoscopy (04/28/21) Distal esophageal polyp and grade C esophagitis History of orchiectomy Status post colonoscopy (04/28/21) Family History Father Hypertension Social History Smoking and tobacco status: never smoked Alcohol intake: never Substance/Drug Use: former Housing: House Physical Exam Const: COMMON NORMALS: no acute distress, average body habitus, patient oriented x3, no limitations, healthy appearing, alert and well nourished HENMT: COMMON NORMALS: normocephalic, atraumatic, hearing grossly normal bilaterally, external ears normal, Normal external nose present and moist oral mucous membranes HEAD & SCALP: normocephalic and atraumatic NOSE: Normal external nose present EXTERNAL EAR: Yes external ears normal Eye: COMMON NORMALS: Equal, round and reactive pupils present, EOMs intact bilaterally, conjunctivae normal and no scleral icterus CONJUNCTIVA: Yes conjunctivae normal PUPIL: Yes Equal, round and reactive pupils present Neck/C-Spine: COMMON NORMALS: full ROM, no lymphadenopathy, supple, no meningeal signs, no JVD and Thyroid normal THYROID: Thyroid normal Lymph: LYMPHATIC: no lymphadenopathy noted Chest: COMMONS NORMALS: normal inspection of the chest and normal palpation of entire chest wall Resp: COMMON NORMALS: normal respiratory effort, No retractions, No use of accessory muscles and clear to auscultation bilaterally AUSCULTATION: clear to auscultation bilaterally Cardio: COMMON NORMALS: no JVD, regular rate, regular rhythm, S1 normal heart sound present, S2 normal heart sound present, No gallops present (Cardio) and No clicks present (Cardio) RATE: regular rate RHYTHM: regular rhythm HEART SOUNDS: S1 normal heart sound present and S2 normal heart sound present GI: COMMON NORMALS: Normal to inspection, nondistended, normoactive bowel sounds present, Soft to palpation, non-tender, No hepatosplenomegaly present and no masses PALPATION: Yes Soft to palpation and Yes No hepatosplenomegaly present : COMMON NORMALS: Yes no CVA tenderness BLADDER/KIDNEY EXAM: Yes no CVA tenderness Back/Pelvis: COMMON NORMALS: no CVA tenderness Neuro: COMMON NORMALS: patient oriented x3 SENSORIUM/ORIENTATION: Yes alert MENINGEAL SIGNS: Yes no meningeal signs Course Vital Signs: Vital signs: Vital Signs Temperature 98.4 F 12/20/22 15:56 Pulse Rate 83 12/20/22 15:56 Respiratory Rate 16 12/20/22 15:56 Blood Pressure 185/82 12/20/22 15:56 Pulse Oximetry 100 12/20/22 15:56 Oxygen Delivery Me thod Room Air 12/20/22 15:56 MDM - Recheck/Abnormal Lab/Rx Medical Decision Making StatedPatient presents to the ER for abnormal labs. His doctor in [place] myles labs and is in the process of working him up for anemia. Patient's labs revealed a hemoglobin of 5.5 hematocrit 20.8, BUN and creatinine of 21 and 1.8, INR 1.5. Patient is on Coumadin for atrial fibrillation. Patient was typed and crossed and will be transfused [address] Canchola was consulted who agreed for admission to [facility] for further evaluation and treatment. Differential Diagnosis Unlikely encounter for medication refill, encounter for wound recheck, encounter for recheck of burn, encounter for removal of sutures or warfarin-induced coagulopathy Medical Records I reviewed the patient's medical records. Lab Data I reviewed the patient's lab results. 12/20/22 16:20 12/20/22 16:20 Laboratory Results WBC 6.1 10^3/uL (4.0-10.0) 12/20/22 16:20 RBC 2.77 10^6/uL (4.1-5.3) L 12/20/22 16:20 Hgb 5.5 g/dL (11.7-16.6) L* 12/20/22 16:20 Hct 20.8 % (42.0-52.0) L* 12/20/22 16:20 MCV 75.1 fl (80-94) L 12/20/22 16:20 MCH 19.9 pg (28.0-34.0) L 12/20/22 16:20 MCHC 26.4 g/dL (30.0-36.0) L 12/20/22 16:20 RDW 19.3 % (12.1-15.1) H 12/20/22 16:20 Plt Count 303 10^3/cmm (130-400) 12/20/22 16:20 MPV 9.5 fL (7.4-10.4) 12/20/22 16:20 Neut % (Auto) 70.8 % 12/20/22 16:20 Lymph % (Auto) 19.3 % 12/20/22 16:20 Placer % (Auto) 6.8 % 12/20/22 16:20 Eos % (Auto) 2.6 % 12/20/22 16:20 Baso % (Auto) 0.2 % 12/20/22 16:20 Neut # (Auto) 4.30 10^3/uL (1.8-7.7) 12/20/22 16:20 Lymph # (Auto) 1.2 10^3/uL (0.8-4.8) 12/20/22 16:20 Placer # (Auto) 0.4 10^3/uL (0.2-0.9) 12/20/22 16:20 Eos # (Auto) 0.2 10^3/uL (0.0-0.8) 12/20/22 16:20 Baso # (Auto) 0.0 10^3/uL (0.0-0.1) 12/20/22 16:20 Nucleated RBC % (auto) 0 % 12/20/22 16:20 Nucleated RBCs # 0.0 /100WBC 12/20/22 16:20 PT 19.10 SECONDS (12.1-14.9) H 12/20/22 16:20 INR 1.54 (0.8-1.2) H 12/20/22 16:20 Sodium 138 mmol/L (136-145) 12/20/22 16:20 Potassium 3.6 mmol/L (3.5-5.1) 12/20/22 16:20 Chloride 103 mmol/L (98-107) 12/20/22 16:20 Carbon Dioxide 28 mmol/L (22-29) 12/20/22 16:20 Anion Gap 10.6 (5-19) 12/20/22 16:20 BUN 21 mg/dL (6-20) H 12/20/22 16:20 Creatinine 1.8 mg/dL (0.7-1.2) H 12/20/22 16:20 GFR Calculation 39.4 mL/min (90-130) L 12/20/22 16:20 Glucose 123 mg/dL (65-115) H 12/20/22 16:20 Calculated Osmolality 290 mOsm/kg (285-295) 12/20/22 16:20 Calcium 10.9 mg/dL (8.5-10.5) H 12/20/22 16:20 Total Bilirubin 0.2 mg/dL (0.15-1.2) 12/20/22 16:20 AST 12 U/L (0-40) 12/20/22 16:20 ALT 18 U/L (0-41) 12/20/22 16:20 Alkaline Phosphatase 113 U/L (40-130) 12/20/22 16:20 NT-Pro-B Natriuret Pep 1924 pg/mL (0-125) H 12/20/22 16:20 Total Protein 5.9 g/dL (6.6-8.7) L 12/20/22 16:20 Albumin 3.4 g/dL (3.5-5.2) L 12/20/22 16:20 Globulin 2.5 g/dL (1.3-4.6) 12/20/22 16:20 Blood Type A Positive 12/20/22 16:45 Rho(D) Type Positive 12/20/22 16:45 Crossmatch See Detail 12/20/22 16:45 Discharge Plan Discharge Patient Disposition: Admitted As Inpatient Clinical Impression: Warfarin-induced coagulopathy, Anemia, Atrial fibrillation Condition: Stable Prescriptions: No Action warfarin 1 mg tablet 1 mg PO DAILY Qty: 90 3RF Protocol: Dose Management Condition: Sunday Dose/Route: 5 mg Instruction: 1 x 5 mg tablet Condition: Sunday Dose/Route: 0 mg Instruction: 0 tablets Condition: Sunday Dose/Route: 0 mg Instruction: 0 tablets Condition: Sunday Dose/Route: 6 mg Instruction: 1 x 6 mg tablet Condition: Dose/Route: 5 mg Instruction: 1 x 5 mg tablet Condition: Sunday Dose/Route: 6 mg Instruction: 1 x 6 mg tablet Condition: Sunday Dose/Route: 5 mg Instruction: 1 x 5 mg tablet Protocol Text: Adjustment Start Date: Sunday12/18/22 INR Value: 48.9 Seconds INR Date: 12/18/22 warfarin 6 mg tablet See Rx Instructions .ROUTE .COMPLEX Qty: 135 3RF Hold Instructions: Resume on 05/17/22. Protocol: Dose Management Condition: Sunday Dose/Route: 5 mg Instruction: 1 x 5 mg tablet Condition: Sunday Dose/Route: 0 mg Instruction: 0 tablets Condition: Sunday Dose/Route: 0 mg Instruction: 0 tablets Condition: Sunday Dose/Route: 6 mg Instruction: 1 x 6 mg tablet Condition: Dose/Route: 5 mg Instruction: 1 x 5 mg tablet Condition: Sunday Dose/Route: 6 mg Instruction: 1 x 6 mg tablet Condition: Sunday Dose/Route: 5 mg Instruction: 1 x 5 mg tablet Protocol Text: Adjustment Start Date: Sunday12/18/22 INR Value: 48.9 Seconds INR Date: 12/18/22 Rx Instructions: 6MG PO DAILY ON Sun and Sun AND 9MG PO DAILY ON Sun warfarin 5 mg tablet 5 mg PO DAILY Qty: 90 3RF Protocol: Dose Management Condition: Sunday Dose/Route: 5 mg Instruction: 1 x 5 mg tablet Condition: Sunday Dose/Route: 0 mg Instruction: 0 tablets Condition: Sunday Dose/Route: 0 mg Instruction: 0 tablets Condition: Sunday Dose/Route: 6 mg Instruction: 1 x 6 mg tablet Condition: Dose/Route: 5 mg Instruction: 1 x 5 mg tablet Condition: Sunday Dose/Route: 6 mg Instruction: 1 x 6 mg tablet Condition: Sunday Dose/Route: 5 mg Instruction: 1 x 5 mg tablet Protocol Text: Adjustment Start Date: Sunday12/18/22 INR Value: 48.9 Seconds INR Date: 12/18/22 Protonix 40 mg tablet,delayed release (DR/EC) 40 mg PO BID PRN (Reason: throat burning) Qty: 30 3RF ketotifen fumarate [Allergy Eye (ketotifen)] 0.025 % (0.035 %) drops 1 drp ophthalmic (eye) BID PRN (Reason: allergy symptoms) Qty: 5 1RF Rx Instructions: administer at least 8 hours apart furosemide 80 mg tablet 40 mg PO DAILY loratadine [Allergy Relief (loratadine)] 10 mg tablet See Rx Instructions .ROUTE .COMPLEX Qty: 90 3RF Dose Instruction: Take 1 tablet by mouth once daily Rx Instructions: Take 1 tablet by mouth once daily metoclopramide HCl 10 mg tablet 10 mg PO TID 30 Days Qty: 90 5RF diltiazem HCl 120 mg capsule,extended release 24hr 120 mg PO DAILY Qty: 90 2RF labetalol 100 mg tablet 100 mg PO BID Qty: 180 3RF calcium carbonate [Tums] 200 mg calcium (500 mg) Tablet,Chewable 200 mg PO QID PRN (Reason: Indigestion) spironolactone 50 mg tablet 100 mg PO QAM alum-mag hydroxide-simeth 200-200-20 mg/5 mL suspension 15 ml PO TID PRN Referrals: Gus Yu DO [Primary Care Provider] - Coding Level of Care Code ED Customer Relations Coordinator for [facility]
[2022-12-20 17:12] LABS: INR 1.54 (0.8-1.2)
[2022-12-20 17:29] LABS: Alanine Aminotransferase 18 U/L (0-41); Albumin Level 3.4 g/dL (3.5-5.2); Alkaline Phosphatase 113 U/L (40-130); Anion Gap 10.6 (5-19); Aspartate Amino Transferase 12 U/L (0-40); Blood Urea Nitrogen 21 mg/dL (6-20); Calcium 10.9 mg/dL (8.5-10.5); Carbon Dioxide 28 mmol/L (22-29); Chloride 103 mmol/L (98-107); Globulin 2.5 g/dL (1.3-4.6); Glomerular Filtration Rate 39.4 mL/min (90-130); Glucose 123 mg/dL (65-115); NT Pro B Type Natriuretic Pept 1924 pg/mL (0-125); Osmolality Calculated 290 mOsm/kg (285-295); Potassium 3.6 mmol/L (3.5-5.1); Sodium 138 mmol/L (136-145); Total Bilirubin 0.2 mg/dL (0.15-1.2); Total Protein 5.9 g/dL (6.6-8.7)
--- NOTE | 2022-12-20 22:06 | PM.HP ---
Providers/Chief Complaint Admitting Physician: Ernst Zambrano MD Primary Care Provider: Gus Yu DO Chief Complaint: Sent in for abn labs History of Present Illness Ty Mejia is a 57 year old male with past medical history of esophageal cancer post esophagectomy, 5 stent in 2019, hypertension, atrial fibrillation on anticoagulation with warfarin, CKD, last known echocardiogram showing an EF of 54% with RV failure, moderate pulmonary hypertension, chronic anemia for which he has undergone multiple diagnostic tests including EGD and colonoscopy within last 2 years and is being worked up [facility] in detail currently was sent into the ER today by his outpatient clinic because of low hemoglobin. Patient denies any chest pain, nausea, vomiting, melena but complains of feeling weak and dizziness occasionally. Takes 6 mg of Coumadin daily. Review of Systems General: Reports: 10 or more systems reviewed and unremarkable except in HPI and below Const: Denies: fever(s), chills, body aches, change in appetite, change in weight, malaise, night sweats, diaphoresis, change in sleep pattern, daytime sleepiness or snoring Eyes: Denies: change in vision, blurry vision, photophobia, eye discomfort or eye discharge ENMT: Denies: throat pain, enlarged tonsils, hoarseness, mouth pain, oral sores, dry mouth, tinnitus, nasal congestion or post nasal drip Card: Denies: chest pain, palpitations, irregular heart rhythm, edema, swelling of feet/ankles, lightheadedness, syncope, pre-syncope, dyspnea on exertion, orthopnea, leg pain with exertion or acrocyanosis Resp: Denies: dyspnea, productive cough, non-productive cough, wheezing, stridor, pain on inspiration, change in phlegm color, hemoptysis or chest congestion GI: Denies: abdominal pain, nausea, vomiting, hematemesis, coffee ground emesis, dysphagia, heartburn, diarrhea, constipation, bloating, GI cramping, change in bowel habits, pain on defecation, hematochezia or melena : Denies: flank pain, difficulty urinating, dysuria, urinary frequency, urinary urgency, urinary hesitancy, urinary dribbling, difficulty starting urination, change in urine stream, nocturia or hematuria Musc: Denies: neck pain, back pain, extremity pain, joint pain, joint swelling, joint redness, joint stiffness or limited range of motion Neuro: Denies: headache(s), numbness in extremities, weakness in extremities, sensory changes, lack of coordination, difficulty walking, frequent falls, dizziness, vertigo, confusion, Slurred speech present, difficulty communicating thoughts or seizure-like activity Psych: Denies: anxiety, depression, mood swings, panic attacks, hopelessness or irritability Endo: Denies: polyuria, polydipsia, tired all the time, cold intolerance, excessive sweating, flushing or heat intolerance Petar/Lymph: Denies: easy bruising or easy bleeding All/Imm: Denies: tongue swelling, facial swelling or acute wheezing Medications/Allergies Home Medications Medication Instructions Recorded Confirmed Last Taken Type pantoprazole 40 mg tablet,delayed 40 mg PO BID PRN throat burning 02/24/22 12/20/22 12/20/22 08:00 Rx release (Protonix) #30 tabs ketotifen fumarate 0.025 % (0.035 1 drp ophthalmic (eye) BID PRN 03/16/22 12/20/22 Unknown Rx %) eye drops (Allergy Eye allergy symptoms #5 mL (ketotifen)) calcium carbonate 200 mg calcium 200 mg PO QID PRN Indigestion 04/06/22 12/20/22 05/10/22 History (500 mg) chewable tablet (Tums) spironolactone 50 mg tablet 100 mg PO QAM High blood pressure 04/06/22 12/20/22 12/20/22 08:00 History & CHF loratadine 10 mg tablet (Allergy See Rx Instructions .Route 05/27/22 12/20/22 12/20/22 08:00 Rx Relief (loratadine)) .COMPLEX #90 tabs aluminum-mag hydroxide-simethicone 15 ml PO TID PRN Acid Reflux 06/08/22 12/20/22 Unknown History 200 mg-200 mg-20 mg/5 mL oral susp furosemide 80 mg tablet 80 mg PO DAILY 06/08/22 12/20/22 12/19/22 08:00 History diltiazem HCl 120 mg 120 mg PO DAILY #90 caps 06/13/22 12/20/22 12/20/22 08:00 Rx capsule,extended release 24 hr metoclopramide HCl 10 mg tablet 10 mg PO TID 30 days #90 tabs 06/13/22 12/20/22 12/20/22 08:00 Rx warfarin 1 mg tablet 1 mg PO DAILY #90 tabs 06/28/22 12/20/22 Unknown Rx labetalol 100 mg tablet 100 mg PO BID #180 tabs 07/21/22 12/20/22 12/20/22 08:00 Rx warfarin 6 mg tablet See Rx Instructions .Route 09/14/22 12/20/22 12/19/22 08:00 Rx .COMPLEX #135 tabs warfarin 5 mg tablet 5 mg PO DAILY #90 tabs 09/28/22 12/20/22 Unknown Rx Allergies Allergy/AdvReac Type Severity Reaction Status Date / Time Penicillins Allergy Unknown Verified 11/06/22 10:13 PFSH Acute PFSH: Medical History Allergic rhinitis due to allergen Colon polyps Dental caries associated with enamel hypomineralization Esophagitis GERD (gastroesophageal reflux disease) Hx of esophageal malignancy Hypertension VAHE (obstructive sleep apnea) Pulmonary hypertension Resistant hypertension Surgical History H/O esophagectomy H/O esophagogastroduodenoscopy (04/28/21) Distal esophageal polyp and grade C esophagitis History of orchiectomy Status post colonoscopy (04/28/21) Family History Father Hypertension Social History Smoking and tobacco status: never smoked Alcohol intake: never Substance/Drug Use: former Housing: House Vitals/I&O/Wt Last Vital Signs Temp 98.3 F 12/20/22 21:58 Pulse 83 12/20/22 21:58 Resp 16 12/20/22 21:58 BP 161/83 12/20/22 21:58 Pulse Ox 100 12/20/22 21:58 O2 Del Method Room Air 12/20/22 19:09 12/20/22 12/20/22 12/20/22 06:59 14:59 22:59 Intake Total 0 / 0 Balance 0 / 0 Weight last 48 hrs Weight 125.645 kg Physical Exam Narrative: General: No acute distress, AO x3, pallor present HEENT: PERRLA, pupils bilaterally equal and reactive Chest: Normal vesicular breath sounds, no added sounds, equal good air entry bilaterally CVS: S1-S2 regular, no murmurs, no tachycardia, no gallops, no rubs Abdomen: Soft, nontender, no organomegaly, bowel sounds present Neuro: No focal deficits, no facial deformity, AO x3, power 5/5 in all limbs Data 12/21/22 06:21 12/21/22 06:21 A&P Assessment and plan (1) Anemia: Acute on chronic. Has had EGD and colonoscopy within the last 2 years within normal limits. Being worked up but [facility] for anemia. Target hemoglobin more than 8 given cardiac history. INR within normal limits. Patient is on Coumadin as an outpatient. Check stool for occult blood. We will hold off on any further EGD and colonoscopy for now as patient has been worked up at [facility]. Most likely given his history of esophageal cancer post esophagectomy patient will require capsule endoscopy. Check iron panel, vitamin B12, folate level. Replete accordingly. Transfuse 2 unit of PRBC. IV Protonix 40 mg twice daily. Qualifiers: Anemia type: unspecified type Qualified Code(s): D64.9 - Anemia, unspecified (2) Resistant hypertension: Goal blood pressure less than 140/90 mmHg. Continue home antihypertensives. (3) Atrial fibrillation: -[id number] least? 09/14, 1 for HTN, 1 for CHF - continue on warfarin. will send xarelsaira for tolentino check as finally patient is agreeable for that. -on?cardizem 120 mg daily. Qualifiers: Atrial fibrillation type: longstanding persistent Qualified Code(s): I48.11 - Longstanding persistent atrial fibrillation (4) H/O esophagectomy: (5) Left renal artery stenosis: (6) On warfarin therapy: Plan Full code. Continue home dose of Coumadin. INR is within normal limits. SCDs for DVT prophylaxis. Protonix for PUD prophylaxis. Attestations Medical Necessity Statement*: Admit under observation for less than 2 midnights for acute on chronic anemia requiring blood transfusion Diagnoses Anemia D64.9 Anemia type: unspecified type Resistant hypertension I10 Atrial fibrillation I48.11 Atrial fibrillation type: longstanding persistent H/O esophagectomy Z98.890; Z90.49 Left renal artery stenosis I70.1 On warfarin therapy Z79.01
[2022-12-20 23:01] LABS: Iron 18 ug/dL (59-158); Percent Saturation 4.6 % (20-50); Total Iron Binding Capacity 389 mcg/dl; Unsaturated Iron Binding 371 ug/dL (112-347)
[2022-12-20 23:06] LABS: Folate Level 5.4 ng/mL (4.5-32.2)
[2022-12-20 23:07] LABS: Vitamin B12 386 pg/mL (232-1245)
[2022-12-20] MEDS: pantoprazole 40 mg SDV IVP (23:15)
[2022-12-20 23:17] LABS: Thyroid Stimulating Hormone 2.68 uIU/mL (0.27-4.20)
[2022-12-21] VITALS (20 sets, daily range): BP systolic 156–181; BP diastolic 72–106; PULSE 65–86; RESP 16–19; TEMP 36.4–37; O2SAT 96–100
[2022-12-21] MEDS: spironolactone 25 mg Tablet 100 MG PO (05:45)
[2022-12-21 06:41] LABS: Basophils % 0.3 %; Eosinophils # 0.2 10^3/uL (0.0-0.8); Eosinophils % 3.2 %; Hemoglobin 7.7 g/dL (11.7-16.6); Lymphocytes # 1.3 10^3/uL (0.8-4.8); Lymphocytes % 17.7 %; Mean Corpuscular HGB Conc 28.5 g/dL (30.0-36.0); Mean Corpuscular Hemoglobin 21.9 pg (28.0-34.0); Mean Corpuscular Volume 76.9 fl (80-94); Mean Platelet Volume 9.2 fL (7.4-10.4); Monocytes # 0.5 10^3/uL (0.2-0.9); Monocytes % 6.9 %; Neutrophils # 5.18 10^3/uL (1.8-7.7); Neutrophils % 71.5 %; Nucleated Red Blood Cells % 0 %; Platelet Count 348 10^3/cmm (130-400); Red Blood Count 3.51 10^6/uL (4.1-5.3); Red Cell Distribution Width 19.9 % (12.1-15.1); White Blood Count 7.2 10^3/uL (4.0-10.0)
[2022-12-21 07:00] LABS: Chol HDL Ratio 3.82 mg/dL (1.0-5.00); Cholesterol 126 mg/dL (0-200); HDL Cholesterol 33 mg/dL (60-100); LDL Cholesterol Calculated 81 mg/dL (50-129); LDL HDL Ratio 2.45 RATIO (0.00-3.22); Triglycerides 61 mg/dL (0-150)
[2022-12-21 07:02] LABS: Lactic Sepsis W/Reflex 0.7 mmol/L (0.5-2.2)
[2022-12-21 07:03] LABS: Alanine Aminotransferase 19 U/L (0-41); Albumin Level 3.5 g/dL (3.5-5.2); Alkaline Phosphatase 120 U/L (40-130); Anion Gap 12.9 (5-19); Aspartate Amino Transferase 11 U/L (0-40); Blood Urea Nitrogen 21 mg/dL (6-20); Calcium 11.1 mg/dL (8.5-10.5); Carbon Dioxide 24 mmol/L (22-29); Chloride 107 mmol/L (98-107); Globulin 2.6 g/dL (1.3-4.6); Glomerular Filtration Rate 42.1 mL/min (90-130); Glucose 91 mg/dL (65-115); Magnesium 1.9 mg/dL (1.7-2.3); Osmolality Calculated 293 mOsm/kg (285-295); Phosphorus 3.8 mg/dL (2.5-4.5); Potassium 3.9 mmol/L (3.5-5.1); Sodium 140 mmol/L (136-145); Total Bilirubin 0.4 mg/dL (0.15-1.2); Total Protein 6.1 g/dL (6.6-8.7)
[2022-12-21 07:17] LABS: Estmated Average Glucose 108; Hemoglobin A1C 5.4 % (4.0-6.0)
[2022-12-21 09:57] LABS: Add Urine Microscopic? NO; Charge for UA Resulting for Rev
[2022-12-21 10:06] LABS: Urine Appearance Clear (CLEAR); Urine Color Yellow (Yellow)
[2022-12-21 10:07] LABS: Bilirubin Urine Neg (Negative); Blood Urine Neg (Negative); Glucose Urine UA Norm (Normal); Ketones Urine Negative (Negative); Leukocyte Esterase Urine Negative (Negative); Nitrate Urine Negative (Negative); Protein Urine Neg (Negative); Specific Gravity, Urine 1.025 (1.005-1.030); Urobilinogen Urine Neg (Negative); pH Urine 6 (5-7)
[2022-12-21] MEDS: dilTIAZem ER (24HR) 120 mg Capsule PO (10:31)
[2022-12-21] MEDS: FUROsemide 40 mg Tablet 80 MG PO (10:31)
[2022-12-21] MEDS: labetalol 200 mg Tablet 100 MG PO (10:31)
[2022-12-21] MEDS: pantoprazole 40 mg SDV IVP (10:40)
--- NOTE | 2022-12-21 11:34 | P.DS_ITS ---
Discharge Providers Date of Admission: 12/20/22 18:00 Date of Discharge: December 21, 2022 Attending Provider at Admission: Ernst Zambrano MD Attending Provider at Discharge: Ernst Zambrano MD Primary Care Provider: Gus Yu DO Diagnoses at Discharge Discharge Diagnosis (1) Anemia: Status: Acute Qualifiers: Anemia type: unspecified type Qualified Code(s): D64.9 - Anemia, unspecified (2) Resistant hypertension: Status: Acute (3) Atrial fibrillation: Status: Acute Qualifiers: Atrial fibrillation type: longstanding persistent Qualified Code(s): I48.11 - Longstanding persistent atrial fibrillation (4) H/O esophagectomy: Status: Acute (5) Left renal artery stenosis: Status: Acute (6) On warfarin therapy: Status: Acute Reason for Visit Reason for Visit: Sent in for abn labs Hospital Course Hospital Course Ty Mejia is a 57 year old male with past medical history of esophageal cancer post esophagectomy, 5 stent in 2019, hypertension, atrial fibrillation on anticoagulation with warfarin, CKD, last known echocardiogram showing an EF of 54% with RV failure, moderate pulmonary hypertension, chronic anemia for which he has undergone multiple diagnostic tests including EGD and colonoscopy within last 2 years and is being worked up [facility] in detail currently was sent into the ER today by his outpatient clinic because of low hemoglobin.? Patient denies any chest pain, nausea, vomiting, melena but complains of feeling weak and dizziness occasionally.? Takes 6 mg of Coumadin daily. Patient received 3 units of blood transfusion. Hemoglobin came up appropriately. Hospitalization was otherwise unremarkable. He has been discharged in hemodynamically stable condition with advised to continue follow- up with physicians at [facility] where he has an appointment within next 2 weeks for further work-up of chronic anemia. Physical Exam Narrative: General: No acute distress, AO x3, pallor present HEENT: PERRLA, pupils bilaterally equal and reactive Chest: Normal vesicular breath sounds, no added sounds, equal good air entry bilaterally CVS: S1-S2 regular, no murmurs, no tachycardia, no gallops, no rubs Abdomen: Soft, nontender, no organomegaly, bowel sounds present Neuro: No focal deficits, no facial deformity, AO x3, power 5/5 in all limbs Discharge Data Studies Completed and Pending Pending at discharge Category Date Time Status Leukocyte Reduced RBC Stat Lab 12/20/22 16:45 Results Occult Blood Stool [Immunochemical Fecal OCB] Routine Lab 12/20/22 22:05 Uncollected Type and Screen Stat Lab 12/20/22 16:45 Results Laboratory Results WBC 7.2 10^3/uL (4.0-10.0) 12/21/22 06:21 RBC 3.51 10^6/uL (4.1-5.3) L 12/21/22 06:21 Hgb 7.7 g/dL (11.7-16.6) L D 12/21/22 06:21 Hct 27.0 % (42.0-52.0) L 12/21/22 06:21 MCV 76.9 fl (80-94) L 12/21/22 06:21 MCH 21.9 pg (28.0-34.0) L D 12/21/22 06:21 MCHC 28.5 g/dL (30.0-36.0) L D 12/21/22 06:21 RDW 19.9 % (12.1-15.1) H 12/21/22 06:21 Plt Count 348 10^3/cmm (130-400) 12/21/22 06:21 MPV 9.2 fL (7.4-10.4) 12/21/22 06:21 Neut % (Auto) 71.5 % 12/21/22 06:21 Lymph % (Auto) 17.7 % 12/21/22 06:21 [place] % (Auto) 6.9 % 12/21/22 06:21 Eos % (Auto) 3.2 % 12/21/22 06:21 Baso % (Auto) 0.3 % 12/21/22 06:21 Neut # (Auto) 5.18 10^3/uL (1.8-7.7) 12/21/22 06:21 Lymph # (Auto) 1.3 10^3/uL (0.8-4.8) 12/21/22 06:21 [place] # (Auto) 0.5 10^3/uL (0.2-0.9) 12/21/22 06:21 Eos # (Auto) 0.2 10^3/uL (0.0-0.8) 12/21/22 06:21 Baso # (Auto) 0.0 10^3/uL (0.0-0.1) 12/21/22 06:21 Nucleated RBC % (auto) 0 % 12/21/22 06:21 Nucleated RBCs # 0.0 /100WBC 12/21/22 06:21 PT 19.10 SECONDS (12.1-14.9) H 12/20/22 16:20 INR 1.54 (0.8-1.2) H 12/20/22 16:20 Sodium 140 mmol/L (136-145) 12/21/22 06:21 Potassium 3.9 mmol/L (3.5-5.1) 12/21/22 06:21 Chloride 107 mmol/L (98-107) 12/21/22 06:21 Carbon Dioxide 24 mmol/L (22-29) 12/21/22 06:21 Anion Gap 12.9 (5-19) 12/21/22 06:21 BUN 21 mg/dL (6-20) H 12/21/22 06:21 Creatinine 1.7 mg/dL (0.7-1.2) H 12/21/22 06:21 GFR Calculation 42.1 mL/min (90-130) L 12/21/22 06:21 Glucose 91 mg/dL (65-115) 12/21/22 06:21 Estimat Average Glucose 108 12/21/22 06:21 Hemoglobin A1c 5.4 % (4.0-6.0) 12/21/22 06:21 Calculated Osmolality 293 mOsm/kg (285-295) 12/21/22 06:21 Lactic Acid 0.7 mmol/L (0.5-2.2) 12/21/22 06:21 Calcium 11.1 mg/dL (8.5-10.5) H 12/21/22 06:21 Phosphorus 3.8 mg/dL (2.5-4.5) 12/21/22 06:21 Magnesium 1.9 mg/dL (1.7-2.3) 12/21/22 06:21 Iron 18 ug/dL (59-158) L 12/20/22 16:20 TIBC 389 mcg/dl 12/20/22 16:20 % Saturation 4.6 % (20-50) L 12/20/22 16:20 Unsat Iron Binding 371 ug/dL (112-347) H 12/20/22 16:20 Total Bilirubin 0.4 mg/dL (0.15-1.2) 12/21/22 06:21 AST 11 U/L (0-40) 12/21/22 06:21 ALT 19 U/L (0-41) 12/21/22 06:21 Alkaline Phosphatase 120 U/L (40-130) 12/21/22 06:21 NT-Pro-B Natriuret Pep 1924 pg/mL (0-125) H 12/20/22 16:20 Total Protein 6.1 g/dL (6.6-8.7) L 12/21/22 06:21 Albumin 3.5 g/dL (3.5-5.2) 12/21/22 06:21 Globulin 2.6 g/dL (1.3-4.6) 12/21/22 06:21 Triglycerides 61 mg/dL (0-150) 12/21/22 06:21 Cholesterol 126 mg/dL (0-200) 12/21/22 06:21 LDL Cholesterol, Calc 81 mg/dL (50-129) 12/21/22 06:21 HDL Cholesterol 33 mg/dL (60-100) L 12/21/22 06:21 LDL/HDL Ratio 2.45 RATIO (0.00-3.22) 12/21/22 06:21 Cholesterol/HDL Ratio 3.82 mg/dL (1.0-5.00) 12/21/22 06:21 Vitamin B12 386 pg/mL (232-1245) 12/20/22 16:20 Folate 5.4 ng/mL (4.5-32.2) 12/20/22 16:20 TSH 2.68 uIU/mL (0.27-4.20) 12/20/22 16:20 Urine Color Yellow (Yellow) 12/21/22 09:34 Urine Appearance Clear (CLEAR) 12/21/22 09:34 Urine pH 6 (5-7) 12/21/22 09:34 Ur Specific [place] 1.025 (1.005-1.030) 12/21/22 09:34 Urine Protein Neg (Negative) 12/21/22 09:34 Urine Glucose (UA) Norm (Normal) 12/21/22 09:34 Urine Ketones Negative (Negative) 12/21/22 09:34 Urine Blood Neg (Negative) 12/21/22 09:34 Urine Nitrate Negative (Negative) 12/21/22 09:34 Urine Bilirubin Neg (Negative) 12/21/22 09:34 Urine Urobilinogen Neg mg/dL (Negative) 12/21/22 09:34 Ur Leukocyte Esterase Negative (Negative) 12/21/22 09:34 Blood Type A Positive 12/20/22 16:45 Rho(D) Type Positive 12/20/22 16:45 Antibody Screen Negative 12/20/22 16:45 Crossmatch See Detail 12/20/22 16:45 Vitals Last Vital Signs Temp 98.4 F 12/21/22 11:23 Pulse 71 12/21/22 11:23 Resp 16 12/21/22 11:23 BP 181/98 12/21/22 11:23 Pulse Ox 96 12/21/22 11:23 O2 Del Method Room Air 12/21/22 11:23 Discharge Plan Discharge Patient Disposition: Home Condition: Stable Prescriptions: Continued warfarin 1 mg tablet 1 mg PO DAILY Qty: 90 3RF Protocol: Dose Management Condition: Sunday Dose/Route: 5 mg Instruction: 1 x 5 mg tablet Condition: Sunday Dose/Route: 0 mg Instruction: 0 tablets Condition: Sunday Dose/Route: 0 mg Instruction: 0 tablets Condition: Sunday Dose/Route: 6 mg Instruction: 1 x 6 mg tablet Condition: Dose/Route: 5 mg Instruction: 1 x 5 mg tablet Condition: Sunday Dose/Route: 6 mg Instruction: 1 x 6 mg tablet Condition: Sunday Dose/Route: 5 mg Instruction: 1 x 5 mg tablet Protocol Text: Adjustment Start Date: Sunday12/18/22 INR Value: 48.9 Seconds INR Date: 12/18/22 warfarin 6 mg tablet See Rx Instructions .ROUTE .COMPLEX Qty: 135 3RF Hold Instructions: Resume on 05/17/22. Protocol: Dose Management Condition: Sunday Dose/Route: 5 mg Instruction: 1 x 5 mg tablet Condition: Sunday Dose/Route: 0 mg Instruction: 0 tablets Condition: Sunday Dose/Route: 0 mg Instruction: 0 tablets Condition: Sunday Dose/Route: 6 mg Instruction: 1 x 6 mg tablet Condition: Dose/Route: 5 mg Instruction: 1 x 5 mg tablet Condition: Sunday Dose/Route: 6 mg Instruction: 1 x 6 mg tablet Condition: Sunday Dose/Route: 5 mg Instruction: 1 x 5 mg tablet Protocol Text: Adjustment Start Date: Sunday12/18/22 INR Value: 48.9 Seconds INR Date: 12/18/22 Rx Instructions: 6MG PO DAILY ON Sun and Sun AND 9MG PO DAILY ON Sun Sat Sun warfarin 5 mg tablet 5 mg PO DAILY Qty: 90 3RF Protocol: Dose Management Condition: Sunday Dose/Route: 5 mg Instruction: 1 x 5 mg tablet Condition: Sunday Dose/Route: 0 mg Instruction: 0 tablets Condition: Sunday Dose/Route: 0 mg Instruction: 0 tablets Condition: Sunday Dose/Route: 6 mg Instruction: 1 x 6 mg tablet Condition: Dose/Route: 5 mg Instruction: 1 x 5 mg tablet Condition: Sunday Dose/Route: 6 mg Instruction: 1 x 6 mg tablet Condition: Sunday Dose/Route: 5 mg Instruction: 1 x 5 mg tablet Protocol Text: Adjustment Start Date: Sunday12/18/22 INR Value: 48.9 Seconds INR Date: 12/18/22 Protonix 40 mg tablet,delayed release (DR/EC) 40 mg PO BID PRN (Reason: throat burning) Qty: 30 3RF ketotifen fumarate [Allergy Eye (ketotifen)] 0.025 % (0.035 %) drops 1 drp ophthalmic (eye) BID PRN (Reason: allergy symptoms) Qty: 5 1RF Rx Instructions: administer at least 8 hours apart furosemide 80 mg tablet 80 mg PO DAILY loratadine [Allergy Relief (loratadine)] 10 mg tablet See Rx Instructions .ROUTE .COMPLEX Qty: 90 3RF Dose Instruction: Take 1 tablet by mouth once daily Rx Instructions: Take 1 tablet by mouth once daily metoclopramide HCl 10 mg tablet 10 mg PO TID 30 Days Qty: 90 5RF diltiazem HCl 120 mg capsule,extended release 24hr 120 mg PO DAILY Qty: 90 2RF labetalol 100 mg tablet 100 mg PO BID Qty: 180 3RF calcium carbonate [Tums] 200 mg calcium (500 mg) Tablet,Chewable 200 mg PO QID PRN (Reason: Indigestion) spironolactone 50 mg tablet 100 mg PO QAM alum-mag hydroxide-simeth 200-200-20 mg/5 mL suspension 15 ml PO TID PRN (Reason: Acid Reflux) Discharge Orders: Discharge Order (Routine); Ordered 12/21/22 Ordered By: Ernst Zambrano Referrals: Gus Yu DO [Primary Care Provider] - 1 week (Sent message to clinic @11:43) Discharge Diet: Usual diet Discharge Activity: Resume usual activity and Increase activity as tolerated Patient Instructions: Anemia (GEN), Opioid Safety Activity Restrictions/Additional Instructions: Follow-up with a primary care provider within next 1 week for repeat CBC. Discharge Attestations Time Spent in Discharge Care*: greater than 30 min Specific Discharge Activities: educating patient, educating and/or supporting family/caregiver, discussing with pcp/other providers, discussing with shoe parts caser/social workers/dc planners, documenting/other paperwork and evaluating patient/reviewing data Status at Discharge: Cognitive status at discharge: cognitively intact , Behavioral status at discharge: cooperative , Functional status at discharge: independent ambulation , Overall status at discharge: patient is progressing back to baseline Quality Metrics Clinical Quality Measures [ No reported AMI, CVA or VTE this stay] Coding Level of Care Code 45141 Total time (in minutes) for Discharge: 40 Diagnoses Anemia D64.9 Anemia type: unspecified type Resistant hypertension I10 Atrial fibrillation I48.11 Atrial fibrillation type: longstanding persistent H/O esophagectomy Z98.890; Z90.49 Left renal artery stenosis I70.1 On warfarin therapy Z79.01
[2022-12-21] MEDS: sodium chloride 0.9% (100 ml) 100 ML (12:45)
--- NOTE | 2022-12-21 15:43 | PC.NURSE ---
Discussed discharge follow up appointments, continued medications.
[2022-12-21] MEDS: warfarin 3 mg Tablet 9 MG PO (15:50)
== END 2022-12-21 15:53 | disposition home or self-care (01) ==
LOC: ER 17:55 → MEDSURG 22:55
PROVIDERS: Admitting Provider Student in an Organized Health Care Education/Training Program; Emergency Provider Emergency Medicine; PCP Family Medicine; Visit Provider Student in an Organized Health Care Education/Training Program
DX: D64.9 Anemia, unspecified (principal); I10 Essential (primary) hypertension; I48.11 Longstanding persistent atrial fibrillation; Z79.01 Long term (current) use of anticoagulants; Z79.899 Other long term (current) drug therapy; K21.9 Gastro-esophageal reflux disease without esophagitis; Z85.01 Personal history of malignant neoplasm of esophagus; Z90.49 Acquired absence of other specified parts of digestive tract
CPT/HCPCS: 36430; 80053; 80061; 81003; 82607; 82746; 83036; 83540; 83550; 83605; 83735; 83880; 84100; 84443; 85025; 85610; 86850; 86900; 86920; 94664; 96374; 96376; 99285; C9113; G0378; P9016; P9040

== ENCOUNTER → 2023-01-03 09:36 | Outpatient (BNVA) | payer MEDICAID, SELFPAY | PROVIDERS: PCP Family Medicine; Visit Provider Internal Medicine | DX: I48.91 Unspecified atrial fibrillation (principal); D64.9 Anemia, unspecified; N17.9 Acute kidney failure, unspecified; I48.11 Longstanding persistent atrial fibrillation | CPT/HCPCS: 85610 ==

== ENCOUNTER → 2023-01-30 15:40 | Outpatient (BNVA) | payer MEDICAID, SELFPAY | PROVIDERS: PCP Family Medicine; Visit Provider Family Medicine | DX: I70.1 Atherosclerosis of renal artery (principal); I48.91 Unspecified atrial fibrillation; Z79.01 Long term (current) use of anticoagulants; I10 Essential (primary) hypertension; D64.9 Anemia, unspecified | CPT/HCPCS: 80053; 80061; 82306; 83036; 84443; 85025; G0103 ==

== ENCOUNTER → 2023-01-31 11:12 | Outpatient (BNVA) | payer MEDICAID, SELFPAY | PROVIDERS: PCP Family Medicine; Visit Provider Internal Medicine Cardiovascular Disease | DX: I48.91 Unspecified atrial fibrillation (principal) | CPT/HCPCS: 85610 ==

== ENCOUNTER → 2023-02-14 10:42 | Outpatient (BNVA) | payer MEDICAID, SELFPAY | PROVIDERS: PCP Family Medicine; Visit Provider Internal Medicine Cardiovascular Disease | DX: I48.91 Unspecified atrial fibrillation (principal) | CPT/HCPCS: 85610 ==

== ENCOUNTER → 2023-02-21 10:45 | Outpatient (BNVA) | payer MEDICAID, SELFPAY | PROVIDERS: PCP Family Medicine; Visit Provider Internal Medicine Cardiovascular Disease | DX: I48.91 Unspecified atrial fibrillation (principal) | CPT/HCPCS: 85610 ==

== ENCOUNTER → 2023-02-28 08:48 | Outpatient (BNVA) | payer MEDICAID, SELFPAY | PROVIDERS: PCP Family Medicine; Visit Provider Internal Medicine Cardiovascular Disease | DX: I48.91 Unspecified atrial fibrillation (principal) | CPT/HCPCS: 85610 ==

== ENCOUNTER → 2024-03-31 11:04 | Outpatient (BNVA) | payer MEDICAID, SELFPAY | PROVIDERS: PCP Family Medicine; Visit Provider Family Medicine | DX: I10 Essential (primary) hypertension (principal); I48.11 Longstanding persistent atrial fibrillation; Z79.899 Other long term (current) drug therapy; C15.9 Malignant neoplasm of esophagus, unspecified; E83.42 Hypomagnesemia; Z12.5 Encounter for screening for malignant neoplasm of prostate | CPT/HCPCS: 80053; 80061; 83036; 83735; 84443; 84550; 85025; 85610; G0103 ==

== ENCOUNTER → 2024-06-02 09:23 | Outpatient (BNVA) | payer MEDICAID, SELFPAY | PROVIDERS: PCP Family Medicine; Visit Provider Family Medicine | DX: N18.9 Chronic kidney disease, unspecified (principal); D50.9 Iron deficiency anemia, unspecified; R30.9 Painful micturition, unspecified | CPT/HCPCS: 80053; 81000; 85025; 85610 ==